=== PATIENT | male | born 1950 | race Caucasian/White ===

== ENCOUNTER → 2018-01-29 13:01 | Outpatient (CLI) | payer MEDICARE, OTHER, SELFPAY ==
[2018-01-29 14:53] LABS: Prostate Specific Ag Screen 0.6 ng/mL (0.0-4.0)
== END ==
PROVIDERS: PCP Family Medicine; Visit Provider Urology
DX: Z12.5 Encounter for screening for malignant neoplasm of prostate (principal); C61 Malignant neoplasm of prostate
CPT/HCPCS: 36415; G0103

== ENCOUNTER → 2019-01-07 12:31 | Outpatient (CLI) | payer MEDICARE, OTHER, SELFPAY ==
--- NOTE | 2019-01-07 | CT_ITS ---
CT abdomen w con INDICATION: Left upper quadrant pain . ORDERING PHYSICIAN: Heaven Cisneros PATIENT AGE: 68 years COMPARISON: No relevant previous studies. . TECHNIQUE: [address] abdomen only scanning performed down just below the umbilicus to the uppermost pelvis. Axial images obtained with sagittal & coronal reformats. All CT scans at the facility use one or more dose reduction, viz: automated exposure control, ma/kV adjustment per patient size (including targeted exams where dose is matched to indication, i.e. head), or iterative reconstruction technique. FINDINGS: Lung bases. Elevation left hemidiaphragm with linear scarring and atelectasis at left base Atelectasis & scarring most evident towards the left base more so than right. Heart. Coronary stents LAD likely circumflex with coronary artery calcification in the vessels. The heart is normal in size. Small left atrium On axial slice 3 & sagittal 59 there is a nearly 5 mm nodular density noted at medial left lung base. This is a nonspecific nodular density although I would note that it is fairly dense for size and could be early granuloma given such. There is some minimal pleural-parenchymal scarring Abdomen only imaged. Pelvis not included./ No prominent acute findings in the abdomen Liver. No significant focal lesion Spleen unremarkable. Pancreas satisfactory. Adrenals unremarkable. tract Kidneys no urinary tract obstruction or calculi. Mild stranding about both kidneys likely reflecting minor chronic change. Right kidney.. 2.1 cm benign-appearing renal cyst mid right kidney. I would note that the right ureter is slightly more generous than the left down to the right.. Right ureter normal caliber. Distal ureters are not visualized. Lower pelvis not included. GI TRACT.. Appendix is included and appears normal. Small bowel normal caliber with few scattered air-fluid levels not felt to be of significance.... Large bowel Moderate stool throughout the visualized portions of colon Colonic diverticulosis most evident at the descending colon and the included proximal most sigmoid colon. No good evidence of acute diverticulitis No Definitive findings at the left upper quadrant account for the patient's pain.. There is upper normal wall thickness at the splenic flexure of the colon which likely reflects merely lack of distention. No pericolic inflammation here.. On close inspection on axial image 86 coronal image 40, 41 noted area of ovoid area fat surrounded by a thin rim. Minor feature but conceivably may reflect focus of very minimal epiploic appendagitis here at the left lower abdomen.. Equivocal feature but noted, since could contribute to left-sided pain here at lower left mid abdomen.. This Located Approximately 6 cm above the left iliac crest This area measures 14 mm length X 8 mm.. Correlation required (history states left upper quadrant pain and thus this may not be of significance . Osseous no osseous lesions. Degenerative changes spine are manifest by prominent facet arthropathy L5/S1 and L4/5, most evident on left. ...... IMPRESSION. .... (CT abdomen only.) 1.... No prominent findings abdomen. . 2. Colonic diverticulosis, most evident throughout the left colon & included proximal sigmoid colon-. No discrete acute diverticulitis. Only Areas of upper normal wall thickness at descending colon 3. .... No discrete findings at left upper quadrant-would only note some borderline wall thickening at the splenic flexure of colon, which most likely reflects its contracted state. No definitive findings. 4. Would Only Question possible Small focus of possible very minor Epiploic Appendigitis left lower abdomen (6 cm above the left iliac crest) This fatty focus withi
[2019-01-07 13:02] LABS: Blood Urea Nitrogen 17 mg/dL (7-18); Creatinine,Serum 1.09 mg/dL (0.70-1.30); Estimated Glomerular Filt Rate 67 ml/min (>60); GFR (African American) 82 ML/MIN (>60)
== END ==
PROVIDERS: Visit Provider Nurse Practitioner Family
DX: R10.10 Upper abdominal pain, unspecified (principal)
CPT/HCPCS: 36415; 74160; 82565; 84520

== ENCOUNTER → 2019-02-04 11:37 | Outpatient (CLI) | payer MEDICARE, OTHER, SELFPAY ==
[2019-02-04 15:27] LABS: Prostate Specific Ag, Diagnost 0.85 ng/mL (0.0-4.0)
== END ==
PROVIDERS: Visit Provider Urology
DX: Z85.46 Personal history of malignant neoplasm of prostate (principal)
CPT/HCPCS: 36415; 84153

== ENCOUNTER → 2019-06-30 12:57 | Outpatient (CLI) | payer MEDICARE, OTHER, SELFPAY ==
--- NOTE | 2019-06-30 | US_ITS ---
US Arterial Lower Ext Rest History: Hypertension, hyperlipidemia, bilateral foot numbness ORDERING PHYSICIAN: Balaji Perales MD PATIENT AGE: 68 years TECHNIQUE: Segmental pressures obtained of both right and left leg. These are compared to brachial blood pressure to yield index at each level sampled including summary SAGAR. The data sheets from the procedure are available in PACS FINDINGS Rest study only performed today No prior studies available for comparison. Blood pressures reported are in millimeters mercury. RIGHT LEG SAGAR = 1.2. RIGHT LEG TBI=0.9 Brachial BP: 135 Thigh BP: 143 Calf BP: 156 Ankle PT: 160 Ankle DP : 163 Digit =124 LEFT LEG SAGAR = 1.1 LEFT LEG TBI= 0.9 Brachial BPD: 137 Thigh BP: 141 Calf BP: 160 Ankle PT:156 Ankle DP: 148 Digit = 125 Pulses and waveforms: Normal IMPRESSION: The ABIs as reported above are within normal limits. Waveforms and pulses are also unremarkable.
== END ==
PROVIDERS: PCP Family Medicine; Visit Provider Family Medicine
DX: R20.2 Paresthesia of skin (principal); I73.9 Peripheral vascular disease, unspecified; I25.10 Atherosclerotic heart disease of native coronary artery without angina pectoris
CPT/HCPCS: 93923; 93924

== ENCOUNTER → 2019-10-20 10:56 | Outpatient (POV) | payer MEDICARE, OTHER, SELFPAY | PROVIDERS: Visit Provider Specialist | DX: M79.662 Pain in left lower leg (principal); M79.661 Pain in right lower leg; M79.672 Pain in left foot; M79.671 Pain in right foot; R20.2 Paresthesia of skin | CPT/HCPCS: 95886; 95909 ==

== ENCOUNTER → 2019-11-03 08:30 | Outpatient (CLI) | payer MEDICARE, OTHER, SELFPAY ==
--- NOTE | 2019-11-03 08:41 | XR_ITS ---
PROCEDURE: XR FOOT WT BEARING LT 3V CLINICAL INDICATION: foot pain Numbness and foot pain COMPARISON: No exams were available for comparison FINDINGS: No fracture or dislocation. No lytic or blastic change. There is normal mineralization. There are minimal hypertrophic changes of the anterior distal tibia. Minimal osteoarthritic change noted at 1st MTP joint. Other findings:None. IMPRESSION: Minimal degenerative changes at the 1st MTP joint in the distal tibia anteriorly Dictated by: Yfn Martines MD 11/03/2019 13:10 Electronically signed by Yfn Martines MD in [facility] 11/03/2019 13:10
== END ==
PROVIDERS: PCP Family Medicine; Visit Provider Podiatrist
DX: M79.672 Pain in left foot (principal); M79.671 Pain in right foot
CPT/HCPCS: 73630

== ENCOUNTER → 2020-04-21 11:16 | Outpatient (CLI) | payer MEDICARE, OTHER, SELFPAY ==
--- NOTE | 2020-04-21 11:24 | XR_ITS ---
PROCEDURE: XR HIP LT 2-3V W/PELVIS CLINICAL INDICATION: LT HIP PAIN,LOW BACK PAIN COMPARISON: ABDW CT abdomen w con from 01/07/2019 FINDINGS: Prostate seed implants are present. There is mild sclerosis of the left SI joint inferiorly. There is mild osteoarthritic change of the left hip. A 12 mm lucent lesion is noted in the right femoral head. Mild osteoarthritic changes are present of the right hip IMPRESSION: Osteoarthritis of both hips. Lucent lesion is present in the right femoral head at [address] or MRI further evaluation. Dictated by: Yfn Martines MD 04/21/2020 15:20 Electronically signed by Yfn Martines MD in [facility] 04/21/2020 15:20
--- NOTE | 2020-04-21 11:24 | XR_ITS ---
PROCEDURE: XR LUMBAR SPINE MIN 4V CLINICAL INDICATION: Low back pain COMPARISON: No exams were available for comparison FINDINGS: There is normal alignment. No fracture or dislocation is evident. Mild endplate hypertrophic changes are present at every level with slight decrease in the disc space at T12-L1 L1-L2 L2-L3 and L3-L4. Mild degenerative change of the the left SI joint. IMPRESSION: Degenerative changes, no acute finding Dictated by: Yfn Martines MD 04/21/2020 15:14 Electronically signed by Yfn Martines MD in [facility] 04/21/2020 15:14
== END ==
PROVIDERS: PCP Family Medicine; Visit Provider Nurse Practitioner Family
DX: M54.5 Low back pain (principal); M25.552 Pain in left hip
CPT/HCPCS: 72110; 73502

== ENCOUNTER → 2020-05-10 13:07 | Outpatient (CLI) | payer MEDICARE, OTHER, SELFPAY ==
--- NOTE | 2020-05-10 13:18 | CT_ITS ---
PROCEDURE: CT HIP RT WO CON CLINICAL HISTORY: ABN X-RAY Lesion of the right femoral head COMPARISON: ABDW CT abdomen w con from 01/07/2019 XR HIP LT 2-3V W/PELVIS from 04/21/2020 TECHNIQUE: Axial images obtained with sagittal and coronal reformats. All CT scans at the facility use one or more dose reduction, viz: automated exposure control, ma/kV adjustment per patient size (including targeted exams where dose is matched to indication, i.e. head), or iterative reconstruction technique. FINDINGS: There are mild osteoarthritic changes of the right hip with decrease in the joint space and osteophyte formation. Subchondral cystic changes are present involving the acetabular roof. There is a well-circumscribed lucent lesion involving the femoral head which measures 19 x 10 mm. This has sclerotic margins. Internally and superiorly is a well circumscribed calcific density. This may be related to an osteochondral defect with an osteochondral fragment. The appearance is not typical for avascular necrosis. Along the lateral aspect of the femoral head with the junction with the femoral neck there is a small area of indentation which could represent a CAM deformity which may be seen with femoral acetabular impingement. There is some mild over coverage of the femoral head posteriorly by the acetabulum. No fracture or dislocation. There has been prior inguinal hernia repair with hyperdense mesh at the hernia repair site.. IMPRESSION: 1. 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 Suggest follow-up to confirm stability. Consider orthopedic consult. 2. Osteoarthritis of the right hip with subarticular cystic changes of the acetabular roof 3. Possible small CAM deformity of the junction of the femoral head and neck which may be seen with femoral acetabular impingement Dictated by: Yfn Martines MD 05/11/2020 13:08 Electronically signed by Yfn Martines MD in [facility] 05/11/2020 13:08
== END ==
PROVIDERS: PCP Family Medicine; Visit Provider Family Medicine
DX: R93.89 Abnormal findings on diagnostic imaging of other specified body structures (principal)
CPT/HCPCS: 73700

== ENCOUNTER → 2020-05-26 15:11 | Outpatient (CLI) | payer MEDICARE, OTHER, SELFPAY ==
--- NOTE | 2020-05-26 15:16 | MR_ITS ---
PROCEDURE: MR LUMBAR SPINE WO CON CLINICAL INDICATION: LOW BACK PAIN Left-sided low back pain with left leg COMPARISON: XR LUMBAR SPINE MIN 4V from 04/21/2020 TECHNIQUE: Standard multiplanar multiecho sequences are performed without contrast. 3-D MIP and myelographic images are also rendered and reviewed FINDINGS: There is normal alignment. The spinal cord ends at the L1 level. L1-L2: Mild degenerative disc disease with a small broad-based right paracentral disc protrusion causing mild right lateral recess narrowing. There is a T1 and T2 area of decreased intensity along the inferior aspect of the L1 endplate and could be due to Schmorl's node. L2-L3: Minimal bulging disc with mild facet ligamentum hypertrophy. L3-L4: Mild bulging disc with mild facet ligamentum hypertrophy with mild bilateral foraminal narrowing. L4-5: Mild facet and ligamentum hypertrophy with mild bilateral lateral recess narrowing L5-S1: Mild concentric bulging disc with mild degenerative disc disease. Facet ligamentum hypertrophy with moderate bilateral foraminal narrowing slightly greater on the left compared to the right. No extruded herniated disc or canal stenosis. Incidental note made of a 2 cm right renal cyst IMPRESSION: Mild multilevel lumbar spondylosis with degenerative disc disease, bulging discs and facet ligamentum hypertrophy. Lateral recess and foraminal narrowing. Please see above for detailed description at each level. No extruded herniated disc or canal stenosis Dictated by: Ynf Martines MD 05/27/2020 13:57 Electronically signed by Yfn Martines MD in [facility] 05/27/2020 13:57
== END ==
PROVIDERS: PCP Family Medicine; Visit Provider Nurse Practitioner Family
DX: M54.5 Low back pain (principal)
CPT/HCPCS: 72148; 76376

== ENCOUNTER → 2020-06-11 10:08 | Outpatient (CLI) | payer MEDICARE, OTHER, SELFPAY ==
--- NOTE | 2020-06-11 10:15 | XR_ITS ---
PROCEDURE: XR SHOULDER LT MIN 2V CLINICAL INDICATION: PAIN IN L SHOULDER COMPARISON: No exams were available for comparison FINDINGS: The clavicle is intact. There is prominent spurring of the AC joint both superiorly and inferiorly. There is a small bone fragment sitting just between the superior aspects of the AC joint probably posttraumatic in etiology. The humeral head and glenoid appear intact. There are couple of small subchondral cysts within the humeral head. There are no soft tissue calcifications. There is no significant subacromial stenosis. IMPRESSION: Moderate degenerative and possibly posttraumatic changes of the AC joint, no acute fracture seen Dictated by: Dr. Nash Luis MD 06/11/2020 10:[address] Nash Luis MD in [facility] 06/11/2020 10:26
== END ==
PROVIDERS: PCP Nurse Practitioner Family; Visit Provider Nurse Practitioner Family
DX: M25.512 Pain in left shoulder (principal)
CPT/HCPCS: 73030

== ENCOUNTER → 2020-07-21 16:05 | Outpatient (CLI) | payer MEDICARE, OTHER, SELFPAY ==
--- NOTE | 2020-07-21 16:08 | MR_ITS ---
PROCEDURE: MR SHOULDER LT WO CON CLINICAL INDICATION: LEFT SHOULDER PAIN Shoulder pain, fall with injury and pain COMPARISON: DX XR SHOULDER LT MIN 2V from 06/11/2020 TECHNIQUE: Routine multiplanar multi echo sequences are performed without gadolinium enhancement. FINDINGS: Prominent hypertrophic changes are present at the acromioclavicular joint with resultant impingement upon the musculotendinous junction of the supraspinatus tendon with subacromial stenosis. There is a full-thickness tear involving the anterior aspect of the supraspinatus tendon. There is thinning of the infraspinatus tendon consistent with a partial tear. The subscapularis tendon is also thinned. The teres minor tendon is intact. There is superior elevation of the humeral head with osteoarthritic changes of the glenohumeral joint. There is a curvilinear area of decreased T1 and increased T2 signal in the humeral head consistent with osteonecrosis with an osteochondral defect. Sub chondral cystic changes are present involving the greater tuberosity. The bicipital tendon is in place. Motion artifact obscures fine detail of the labrum with no definite labral tear. There is a small shoulder joint effusion. IMPRESSION: 1. Prominent hypertrophic changes of the AC joint with impingement on the supraspinatus tendon with subacromial stenosis. 2. Full-thickness tear of the supraspinatus tendon with partial tear of the infraspinatus tendon. There is thinning of the subscapularis tendon which may also be related to partial tear. 3. 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
== END ==
PROVIDERS: PCP Nurse Practitioner Family; Visit Provider Family Medicine
DX: M25.512 Pain in left shoulder (principal)
CPT/HCPCS: 73221

== ENCOUNTER 2020-10-26 20:11 | Emergency (ER) | payer MEDICARE, OTHER, SELFPAY ==
[2020-10-26] VITALS (8 sets, daily range): BP systolic 149–210; BP diastolic 82–110; PULSE 71–95; RESP 16–19; TEMP 36.7–36.8; O2SAT 96–98; BMI 31.2
--- NOTE | 2020-10-26 20:32 | ECG_ITS ---
APPROVED REPORT Exam: Resting ECG HR:63 bpm ECG Measurements Heart Rate 63 AXES MN 134 P 71 QRSd 94 QRS 13 QT 380 T 36 QTc 388 Conclusion Normal sinus rhythm Normal ECG Electronically signed by : Balaji Goodwin, 10/27/2020 05:44:37
--- NOTE | 2020-10-26 20:32 | XR_ITS ---
PROCEDURE: XR CHEST 2V CLINICAL HISTORY: dizziness COMPARISON: No exams were available for comparison FINDINGS: The cardiomediastinal silhouette and pulmonary vascularity are within normal limits. There is patchy density in the left lung base which may be due to an area of atelectasis or infiltrate. Nodular opacities are present 1 in the left lower lung zone in 1 in the right lower lung zone and may be due to nipple shadows. Degenerative changes thoracic spine IMPRESSION: Left lower lobe atelectasis or infiltrate. Dictated by: Yfn Martines MD 10/27/2020 05:22 Yfn Martines MD in [facility] 10/27/2020 05:22
--- NOTE | 2020-10-26 20:32 | CT_ITS ---
PROCEDURE: CT HEAD/BRAIN WO CON CLINICAL INDICATION: dizziness Dizziness, hypotension COMPARISON: No exams were available for comparison TECHNIQUE: Axial images obtained. All CT scans at the facility use one or more dose reduction, viz: automated exposure control, ma/kV adjustment per patient size (including targeted exams where dose is matched to indication, i.e. head), or iterative reconstruction technique. FINDINGS: No midline shift, mass effect, intracranial hemorrhage, hydrocephalus, or extra-axial fluid collection is evident. The calvarium has an unremarkable appearance. No mastoid effusion. There is a 2 cm retention cyst in the left maxillary sinus posteriorly and there is mucosal thickening involving the ethmoid sinuses anteriorly with mucosal thickening of the frontal sinus centrally and on the left. IMPRESSION: 1. No acute intracranial findings. 2. Sinus disease Dictated by: Yfn Martines MD 10/27/2020 05:43 Yfn Martines MD in [facility] 10/27/2020 05:43
--- NOTE | 2020-10-26 20:37 | HMH.EDDIZZ ---
ED Disposition Clinical Impression: Internal carotid artery dissection, Hypertensive emergency, Obesity (BMI 30.0-34.9) Disposition: Xfer Short-Term Hosp Condition on Discharge: Critical Referrals: Balaji Perales MD [Primary Care Provider] - - Critical Care Critical Care Time: Yes Attestation: On 10/26/20, the high probability of a clinically significant, sudden or life threatening deterioration of the following system(s) required my full and direct attention, intervention and personal management. The time I documented below is in addition to time spent performing reported procedures but includes the following listed in this critical care notation. Total Critical Care Time: 60 Vital system(s) involved:: Circulatory Failure My critical care processes included: Assessment & monitoring of V/S, Initial and Re-exams, Data Review/Interpretation, Medication Orders and management, Documentation Medical Decision Making - Medical Records Medical records reviewed: Yes: I reviewed the patient's medical records. - Venu Inquiry Pt receiving controlled substance: No Vital Signs: 10/26/20 20:12 Temperature 98.2 F Temperature Source Oral Pulse Rate [Left Radial] 73 Respiratory Rate 16 Blood Pressure [Right Arm] 179/97 H Blood Pressure Mean [Right Arm] 124 Blood Pressure Source [Right Arm] Automatic Cuff Blood Pressure Position [Right Arm] Sitting 02 Sat by Pulse Oximetry 97 Oxygen Delivery Method Room Air - Lab Data Lab results reviewed: Yes: I reviewed the patient's lab results. Lab Results 10/26/20 20:30: WBC 11.6 H, RBC 4.45 L, Hgb 13.3 L, Hct 40.1 L, MCV 90.2, MCH 30.0, MCHC 33.2, RDW 13.9, Plt Count 240, MPV 8.3, Neut % (Auto) 78.4, Lymph % (Auto) 15.4, Floyd % (Auto) 4.7, Eos % (Auto) 1.3, Baso % (Auto) 0.3, Neut # (Auto) 9.1 H, Lymph # (Auto) 1.8, Floyd # (Auto) 0.6, Eos # (Auto) 0.2, Baso # (Auto) 0.0 10/26/20 20:30: Sodium 138, Potassium 4.3, Chloride 105, Carbon Dioxide 27, Anion Gap 10.3, BUN 23 H, Creatinine 0.90, Estimated Creat Clear 98, Estimated GFR 84, Est GFR ( Amer) 101, Glucose 111 H, Calcium 9.3, Total Bilirubin 0.3, AST 35, ALT 29, Alkaline Phosphatase 93, Troponin I < 0.01, Total Protein 7.4, Albumin 4.6, Globulin 2.8, Albumin/Globulin Ratio 1.6 10/26/20 20:30: ESR 13 Result diagrams: 10/26/20 20:30 10/26/20 20:30 Orders (Tests/Meds): ED MEDICATIONS Generic Name Dose Route Start Last Admin Trade Name Freq PRN Reason Stop Dose Admin Sodium Chloride 1,000 mls @ 999 mls/hr 10/26/20 21:00 10/26/20 21:12 Sod Chlor 0.9% 1000ml Bag IV 10/26/20 22:00 999 mls/hr .Q1H1M KAYLAH Administration Nicardipine HCl 25 mg/ Sodium 250 mls @ 50 mls/hr 10/26/20 22:30 Chloride IV 11/25/20 22:29 .Q5H KAYLAH Protocol ORDERS Category Date Time Status CT angio head Stat Cat Scan 10/26/20 20:[address] angio neck Stat Cat Scan 10/26/20 20:[address] head/brain wo con Stat Cat Scan 10/26/20 20:32 Stop Req XR chest 2V Stat Exams 10/26/20 20:32 Ordered Troponin I Q3H Lab 10/26/20 22:13 Received Troponin I Q3H Lab 10/27/20 02:45 Ordered UA [Urinalysis and Microscopic] Stat Lab 10/26/20 22:23 Ordered - Radiology Data #1 Image(s): Chest Image Reviewed: Yes I reviewed the patient's radiology image Preliminary Findings: Abnormal (sl wid mediastinum - pos positional ) - CT Data CT Scan: Head, Other (neck cta ) Time Received: 22:[address] Reviewed: Yes: I have viewed the radiologist's interpretation Preliminary Findings: Abnormal (lt int carotid dissection ) - ECG Data Tracing #1 Normal Sinus Rhythm: Yes Ischemic changes: non-specific ST-T wave changes - Physician Consults Physician Consulted: [facility] Reason -: Transfer to another facilty Medical Decision Narrative: acute lt int art dissection will need bp control and transferred to [facility] HPI - General Chief Complaint: Dizziness Stated Complaint: dIZZY, aLMOST PASSED OUT T
--- NOTE | 2020-10-26 20:45 | CT_ITS ---
Procedure: CT ANGIO NECK CLINICAL HISTORY: dizziness Dizziness COMPARISON: CT CT ANGIO HEAD from 10/26/2020 TECHNIQUE: IV Contrast: 100ml Isovue 370 Axial images obtained with sagittal and coronal reformats. All CT scans at the facility use one or more dose reduction, viz: automated exposure control, ma/kV adjustment per patient size (including targeted exams where dose is matched to indication, i.e. head), or iterative reconstruction technique. FINDINGS: CTA neck: The aortic arch has an unremarkable appearance. There is tortuosity the right subclavian artery. The right common carotid has an unremarkable appearance. Right internal carotid also appears unremarkable with mild tortuosity. The left common carotid is unremarkable. There is acute appearing dissection of the proximal and distal segments of the left internal carotid artery cervical portion series 12, images [id number] and series 12, images 511-535. This does not extend into the intracranial portion of the left internal carotid. The vertebral arteries have an unremarkable appearance. CTA brain: No aneurysm, AVM or major intracranial occlusive process. No evidence of dissection of the intracranial portion of the carotid arteries. There is prominence of the sternoclavicular joint soft tissues on both sides consistent with pannus formation. The thyroid gland is slightly prominent with a 9 mm hypodensity in the right lobe of the thyroid gland. IMPRESSION: 1. Acute appearing dissection of the proximal distal segments of the cervical portion of the left internal carotid artery 2. No significant stenotic lesions. No aneurysm or AVM apparent. Dictated by: Yfn Martines MD 10/27/2020 16:19 Yfn Martines MD in [place] 10/27/2020 16:19
[2020-10-26 20:49] LABS: Basophils % 0.3 % (0.1-2.0); Eosinophils # 0.2 K/mm3 (0.0-0.4); Eosinophils % 1.3 % (0.1-12.0); Hematocrit 40.1 % (42.0-52.0); Hemoglobin 13.3 g/dL (14.1-18.0); Lymphocytes # 1.8 K/mm3 (0.7-4.5); Lymphocytes % 15.4 % (10-50); Mean Corpuscular HGB Conc 33.2 g/dL (31.8-35.4); Mean Corpuscular Volume 90.2 fl (80-94); Mean Platelet Volume 8.3 fl (7.4-10.4); Monocytes # 0.6 K/mm3 (0.1-1.0); Monocytes % 4.7 % (1.7-9.3); Neutrophils # 9.1 K/mm3 (1.8-7.8); Neutrophils % 78.4 % (37.0-80.0); Platelet Count 240 K/mm3 (142-424); Red Blood Count 4.45 M/mm3 (4.60-6.20); Red Cell Distribution Width 13.9 % (11.5-17.5); White Blood Count 11.6 K/mm3 (4.8-10.8)
[2020-10-26 20:52] LABS: Chloride 105 mmol/L (98-107); Potassium 4.3 mmoL/L (3.5-5.1); Sodium 138 mmol/L (136-145)
[2020-10-26 20:55] LABS: Alanine Aminotransferase 29 U/L (12-78); Albumin Level 4.6 g/dl (3.5-5.0); Albumin/Globulin Ratio 1.6 (1.1-1.8); Alkaline Phosphatase 93 U/L (38-126); Anion Gap 10.3 mEq/L (5-15); Aspartate Amino Transferase 35 U/L (17-59); Bilirubin,Total 0.3 mg/dl (0.2-1.3); Blood Urea Nitrogen 23 mg/dl (9-20); Carbon Dioxide 27 mmol/L (22.0-30.0); Creatinine Clearance Estimated 98 mL/min (50-200); Estimated Glomerular Filt Rate 84 ml/min (>60); GFR (African American) 101 ML/MIN (>60); Globulin 2.8 g/dL (1.3-3.2); Total Protein,Serum 7.4 g/dl (6.3-8.2)
[2020-10-26 20:56] LABS: Calcium 9.3 mg/dl (8.4-10.2); Glucose 111 mg/dl (74-100)
[2020-10-26 21:11] LABS: Troponin I < 0.01 ng/ml (0.00-0.034)
[2020-10-26 21:38] LABS: Erythrocyte Sedimentation Rate 13 mm/hr (0-20)
--- NOTE | 2020-10-26 22:16 | PC.NURSE ---
speaking with [facility] at this time.
--- NOTE | 2020-10-26 22:25 | PC.NURSE ---
speaking with HARIS
--- NOTE | 2020-10-26 22:25 | PC.NURSE ---
calling [facility] for weather check
--- NOTE | 2020-10-26 22:26 | PC.NURSE ---
speaking with HARIS
--- NOTE | 2020-10-26 22:27 | PC.NURSE ---
pt accepted by Dr. Bedolla
[2020-10-26 22:32] LABS: Appearance,Urine CLEAR (Clear); Bilirubin,Urine Negative (Negative); Blood, Urine Negative (Negative); Color,Urine YELLOW (Yellow); Glucose,Urine (UA) Negative (Negative); Ketones,Urine Negative (Negative); Leukocyte Esterase,Urine Negative (Negative); Microscopic, Urine URINE MICROSCOPIC (MICROSCOPIC); Nitrate,Urine Negative (Negative); Protein,Urine Negative (Negative); Urobilinogen,Urine 0.2 EU/dl (0.2)
--- NOTE | 2020-10-26 22:36 | PC.NURSE ---
spoke with Bebo from pharmacy for Cardene Drip dosing. Per [facility] they want systolic at 120 max and HR no more than 80bpm
[2020-10-26 22:37] LABS: Bacteria,Urine Trace /lpf
--- NOTE | 2020-10-26 22:42 | PC.NURSE ---
[facility] lifted 26 minutes ETA
--- NOTE | 2020-10-26 22:44 | PC.NURSE ---
Cardine drip initiated at 5mg/hr at 2243. BP 168/97 HR 75
--- NOTE | 2020-10-26 22:55 | PC.NURSE ---
Cardine increased to 7.5mg/hr at this time
--- NOTE | 2020-10-26 23:02 | PC.NURSE ---
Cardene titrated to 10mg/hr at 2315
== END 2020-10-26 23:38 | disposition short-term general hospital (02) ==
PROVIDERS: Emergency Provider Emergency Medicine; PCP Family Medicine
DX: I77.71 Dissection of carotid artery (principal); I16.1 Hypertensive emergency; E66.9 Obesity, unspecified; Z68.31 Body mass index [BMI] 31.0-31.9, adult; E78.5 Hyperlipidemia, unspecified; Z87.891 Personal history of nicotine dependence; Z79.899 Other long term (current) drug therapy
CPT/HCPCS: 70450; 70496; 70498; 71046; 80053; 81001; 84484; 85025; 85651; 93005; 96365; 96367; 99284; Q9967

== ENCOUNTER 2021-04-07 19:50 | Emergency (ER) | payer MEDICARE, OTHER, SELFPAY ==
[2021-04-07 20:00] VITALS: BMI 32.5
--- NOTE | 2021-04-07 20:00 | XR_ITS ---
PROCEDURE INFORMATION: Exam: XR Thoracic Spine Exam date and time: 04/07/2021 8:00 PM Age: 70 years old Clinical indication: Injury or trauma; Blunt trauma (contusions or hematomas); Injury date: 04/07/2021; Injury details: Fell today and landed on left posterior ribs; Patient HX: Pain post fall TECHNIQUE: Imaging protocol: XR of the thoracic spine. Views: 2 views. COMPARISON: No relevant prior studies available. FINDINGS: Bones/joints: Multilevel disc height narrowing, endplate sclerosis and anterior bridging osteophyte formation. No acute fracture or malalignment. Soft tissues: Unremarkable. IMPRESSION: Mild multilevel degenerative changes but no acute fracture or malalignment.
--- NOTE | 2021-04-07 20:00 | XR_ITS ---
PROCEDURE INFORMATION: Exam: XR Left Ribs with PA Chest Exam date and time: 04/07/2021 8:00 PM Age: 70 years old Clinical indication: Injury or trauma; Fall; Rib area, left side; Blunt trauma; Injury date: 04/07/2021; Injury details: Fell today landed on left posterior ribs TECHNIQUE: Imaging protocol: XR Left ribs with PA chest. Views: 3 views COMPARISON: CR XR CHEST 2V 10/26/2020 9:29 PM FINDINGS: Lungs: In the left lung base there is scarring. Pleural spaces: Unremarkable. No pleural effusion. No pneumothorax. Heart/Mediastinum: Unremarkable. No cardiomegaly. Bones/joints: Unremarkable. IMPRESSION: No acute findings. No evidence for left-sided rib fracture.
--- NOTE | 2021-04-07 20:00 | XR_ITS ---
PROCEDURE INFORMATION: Exam: XR Lumbosacral Spine Exam date and time: 04/07/2021 8:00 PM Age: 70 years old Clinical indication: Injury or trauma; Fall; Blunt trauma (contusions or hematomas); Injury date: 04/07/2021; Injury details: Fell today and landed on left side and pain low back and mid left posterior ribs TECHNIQUE: Imaging protocol: XR of the lumbosacral spine. Views: 4 or 5 views. COMPARISON: MR LUMBAR SPINE WO CON 05/26/2020 3:29 PM FINDINGS: Bones/joints: At L5-S1 there is facet joint arthropathy. Intervertebral disc heights are relatively well preserved. No acute fracture or malalignment. Facet joint arthropathy at L5-S1. Soft tissues: Unremarkable. IMPRESSION: No acute fracture or malalignment.
[2021-04-07 20:05] VITALS: BP 146/92; PULSE 85; RESP 12; TEMP 37; O2SAT 94; BMI 31.2
--- NOTE | 2021-04-07 21:48 | HMH.EDUTC ---
[facility] [place] Disposition Clinical Impression: Rib pain on left side Fall Qualifiers: Encounter type: initial encounter Qualified Code(s): W19.XXXA - Unspecified fall, initial encounter Thoracic back pain Qualifiers: Chronicity: acute Back pain laterality: bilateral Qualified Code(s): M54.6 - Pain in thoracic spine Low back pain Qualifiers: Chronicity: acute Back pain laterality: unspecified Sciatica presence: without sciatica Qualified Code(s): M54.5 - Low back pain Disposition: Home, Self-Care Condition on Discharge: Good Additional Instructions: Go home and rest. It would be best if you rested tomorrow too. No heavy lifting. No twisting. Take the oral medications as directed. The muscle relaxer (cyclobenzaprine----flexeril) will make you drowsy, so don't drive or operate heavy machinery after taking it. Follow up with your regular doctor. GO TO THE ER FOR ANY WORSENING SYMPTOMS OR CONCERN, ESPECIALLY BOWEL OR BLADDER ISSUES, SADDLE AREA NUMBNESS, FEVER, ETC Prescriptions: Ibuprofen [Ibuprofen 600mg Tablet] 600 mg PO Q6HP PRN #30 tab PRN Reason: Mild Pain Transmission Status: Received by [facility] Cyclobenzaprine HCl [Cyclobenzaprine 10mg Tab*] 10 mg PO BIDP PRN #20 tab PRN Reason: Muscle Spasm Transmission Status: Received by [facility] Referrals: Balaji Perales MD [Primary Care Provider] - Time of Disposition: 21:54 Medical Decision Making - Medical Records Medical records reviewed: No: I reviewed the patient's medical records. - Venu Inquiry Pt receiving controlled substance: No Vital Signs: 04/07/21 20:05 04/07/21 21:50 Temperature 98.6 F 98.6 F Temperature Source Oral Pulse Rate 85 Pulse Rate [Right Brachial] 85 Respiratory Rate 12 12 Blood Pressure 146/92 H Blood Pressure [Right Arm] 146/92 H Blood Pressure Mean [Right Arm] 110 Blood Pressure Source [Right Arm] Automatic Cuff Blood Pressure Position [Right Arm] Sitting 02 Sat by Pulse Oximetry 94 L Oxygen Delivery Method Room Air - Radiology Data #1 Image(s): L-Spine Image Reviewed: Yes I reviewed the patient's radiology image, Yes I have reviewed radiologist's interpretation Preliminary Findings: No Fracture Seen #2 Image(s): T-Spine Image Reviewed: Yes I reviewed the patient's radiology image, Yes I have reviewed radiologist's interpretation Preliminary Findings: No Fracture Seen #3 Image(s): Chest Image Reviewed: Yes I reviewed the patient's radiology image, Yes I have reviewed radiologist's interpretation Preliminary Findings: No Fracture Seen [facility] [place] HPI - General Stated complaint: AO05/13@1200 fall pain in left ribs Time Seen by Provider: 04/07/21 21:48 Mode of Arrival: Ambulatory Source of Information: Patient Limitations: No Limitations Description of Symptoms (Recalled from Triage Doc. by RN): PATIENT STATES HE WAS STANDING ON A 5 GALLON BUCKET TODAY APPROX 1300 AND FELL OFF, HITTING HIS LEFT SIDE ON BUCKET. C/O PAIN TO LEFT SIDE AND LEFT MID-BACK HEENT Symptoms (Recalled from RN notes): No Resp Symptoms (Recalled from RN notes): No Skin Symptoms (Recalled from RN notes): No MS Symptoms (Recalled from RN notes): Yes Functional Status (Recalled from RN notes): wnl - History of Present Illness Provider Complaint: He states that he fell off of a 5 gallon bucket in his garage earlier this evening. He came down on the bucket and it hit him on his left ribs. He is having upper back and left rib pain. - Related Data Home Medications Medication Instructions Recorded Confirmed atorvastatin 10 mg tablet 10 mg PO DAILY tab 01/29/18 03/30/21 carvedilol 12.5 mg tablet 12.5 mg PO BID 01/29/18 03/30/21 clopidogrel 75 mg tablet 75 mg PO DAILY tab 01/29/18 03/30/21 ibuprofen 600 mg tablet 600 mg PO Q6H PRN tab 01/26/21 03/30/21 losartan 100 mg tablet 50 mg PO DAILY tab 01/26/21 03/30/21 tamsulosin 0.4 mg capsule mg PO 01/26/21 03/30/21 torsemide 5 mg tablet 5 mg P
[2021-04-07 21:50] VITALS: BP 146/92; PULSE 85; RESP 12; TEMP 37; O2SAT 94
== END 2021-04-07 21:55 | disposition home or self-care (01) ==
PROVIDERS: Emergency Provider Nurse Practitioner Family; PCP Family Medicine
DX: R07.81 Pleurodynia (principal); M54.5 Low back pain; W17.89XA Other fall from one level to another, initial encounter; Y92.015 Private garage of single-family (private) house as the place of occurrence of the external cause
CPT/HCPCS: G0463; 71101; 72070; 72110; 99202

== ENCOUNTER 2021-06-15 18:48 | Emergency (ER) | payer MEDICARE, OTHER, SELFPAY ==
[2021-06-15 19:03] VITALS: PULSE 88; RESP 18; TEMP 36.9; O2SAT 96; BMI 31.5
--- NOTE | 2021-06-15 19:14 | ECG_ITS ---
APPROVED REPORT Exam: Resting ECG HR:82 bpm ECG Measurements Heart Rate 82 AXES MD 140 P 5 QRSd 102 QRS -5 QT 370 T 48 QTc 432 Conclusion Normal sinus rhythm Normal ECG Electronically signed by : Balaji Goodwin, 06/16/2021 14:28:43
--- NOTE | 2021-06-15 19:17 | HMH.EDGENADL ---
ED Disposition Condition on Discharge: Good - Critical Care Critical Care Time: No <Yamil Conde - Last Filed: 06/15/21 20:20> <Ayan English - Last Filed: 06/15/21 21:05> Clinical Impression: Dizziness, Internal carotid artery dissection Disposition: Home, Self-Care Instructions: Dizziness, Nonvertigo Additional Instructions: call pcp for follow up Referrals: Balaji Perales MD [Primary Care Provider] - Attestation: On 06/15/21, the high probability of a clinically significant, sudden or life threatening deterioration of the following system(s) required my full and direct attention, intervention and personal management. The time I documented below is in addition to time spent performing reported procedures but includes the following listed in this critical care notation. Medical Decision Making - Medical Records Medical records reviewed: Yes: I reviewed the patient's medical records. Comment: Reviewed emergency department visit at this facility 10/26/2020, reviewed CTA of head and neck and CT head results. Reviewed portal records. Last neurology visit 02/16/2021, communication reviewed. Records confirm patient's history. 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 - Venu Inquiry Pt receiving controlled substance: No - Lab Data Result diagrams: 06/15/21 19:17 06/15/21 19:17 - Radiology Data #1 Image(s): Chest Image Reviewed: Yes I reviewed the patient's radiology image <Yamil Conde - Last Filed: 06/15/21 20:20> - Lab Data Lab results reviewed: Yes: I reviewed the patient's lab results. Result diagrams: 06/15/21 19:17 06/15/21 19:17 - CT Data CT Scan: Head, Other (cta head/neck) Time Received: 21:[address] Reviewed: Yes: I have viewed the radiologist's interpretation Preliminary Findings: Abnormal (unchanged it ica dussectuin) <Ayan English - Last Filed: 06/15/21 21:05> Vital Signs: 06/15/21 19:03 Temperature 98.4 F Temperature Source Oral Pulse Rate [Right] 88 Respiratory Rate 18 02 Sat by Pulse Oximetry 96 Oxygen Delivery Method Room Air - Lab Data Lab Results 06/15/21 19:17: WBC 9.2, RBC 4.44 L, Hgb 13.2 L, Hct 39.3 L, MCV 88.6, MCH 29.8, MCHC 33.7, RDW 14.9, Plt Count 246, MPV 7.9, Neut % (Auto) 66.8, Lymph % (Auto) 23.6, [place] % (Auto) 5.4, Eos % (Auto) 3.4, Baso % (Auto) 0.7, Neut # (Auto) 6.2, Lymph # (Auto) 2.2, [place] # (Auto) 0.5, Eos # (Auto) 0.3, Baso # (Auto) 0.1 06/15/21 19:17: Sodium 140, Potassium 4.2, Chloride 103, Carbon Dioxide 28, Anion Gap 13.2, BUN 19, Creatinine 1.00, Estimated Creat Clear 98, Estimated GFR 74, Est GFR ( Amer) 90, Glucose 96, Calcium 8.9, Total Bilirubin 0.5, AST 35, ALT 27, Alkaline Phosphatase 106, Troponin I < 0.01, Total Protein 7.1, Albumin 4.4, Globulin 2.7, Albumin/Globulin Ratio 1.6 06/15/21 19:17: Troponin I < 0.01 Orders (Tests/Meds): ED MEDICATIONS Discontinued Medications Generic Name Dose Route Start Last Admin Trade Name Freq PRN Reason Stop Dose Admin Iopamidol 100 ml 06/15/21 20:28 06/15/21 20:30 Iopamidol-370 (76%);100ml Bottle IV 06/15/21 20:29 100 ml ONCE ONE Administration Sodium Chloride 40 ml 06/15/21 20:28 06/15/21 20:30 0.9 % Sodium Chloride 50 Ml Vial IV 06/15/21 20:29 40 ml ONCE ONE Administration Sodium Chloride 10 ml 06/15/21 20:28 06/15/21 20:30 Sodium Chloride 0.9% 10ml Syr (Rad Only) IV 06/15/21 20:29 10 ml ONCE ONE Administration ORDERS Category Date Time Status Troponin I Q3H Lab 06/16/21 01:30 Ordered - Radiology Data #1 Scar left base, no acute process. (Yamil Conde) - ECG Data Tracing #1 EKG interpreted by Yamil Conde MD: Rhythm: sinus Rate: 82 [place]: normal Ectopy: none Conduction: normal ST Segment Changes: none T Wave Changes: none Q Waves: none No evidence of acute ischemia or injury Normal electrocardiogram (Yamil Conde) Medical D
--- NOTE | 2021-06-15 19:22 | XR_ITS ---
PROCEDURE INFORMATION: Exam: XR Chest Exam date and time: 06/15/2021 7:22 PM Age: 70 years old Clinical indication: Other: Dizzy, feeling like going to pass out; Patient HX: HX of cardiac stents TECHNIQUE: Imaging protocol: XR of the chest. Views: 2 views. COMPARISON: CR XR RIBS LT MIN 3V W CXR1V 04/07/2021 8:28 PM FINDINGS: Lungs: Streaky opacity at the left lung base which is stable. No lobar consolidation. Pleural spaces: Unremarkable. No pleural effusion. No pneumothorax. Heart/Mediastinum: Unremarkable. No cardiomegaly. Bones/joints: Degenerative changes of the shoulders. IMPRESSION: Streaky opacity at the left lung base which is stable and potentially secondary to atelectasis or scarring.
[2021-06-15 19:34] LABS: Basophils # 0.1 K/mm3 (0-0.2); Basophils % 0.7 % (0.1-2.0); Eosinophils # 0.3 K/mm3 (0.0-0.4); Eosinophils % 3.4 % (0.1-12.0); Hematocrit 39.3 % (42.0-52.0); Hemoglobin 13.2 g/dL (14.1-18.0); Lymphocytes # 2.2 K/mm3 (0.7-4.5); Lymphocytes % 23.6 % (10-50); Mean Corpuscular HGB Conc 33.7 g/dL (31.8-35.4); Mean Corpuscular Hemoglobin 29.8 pg (27.0-31.2); Mean Corpuscular Volume 88.6 fl (80-94); Mean Platelet Volume 7.9 fl (7.4-10.4); Monocytes # 0.5 K/mm3 (0.1-1.0); Monocytes % 5.4 % (1.7-9.3); Neutrophils # 6.2 K/mm3 (1.8-7.8); Neutrophils % 66.8 % (37.0-80.0); Platelet Count 246 K/mm3 (142-424); Red Blood Count 4.44 M/mm3 (4.60-6.20); Red Cell Distribution Width 14.9 % (11.5-17.5); White Blood Count 9.2 K/mm3 (4.8-10.8)
--- NOTE | 2021-06-15 19:36 | CT_ITS ---
PROCEDURE INFORMATION: Exam: CT Angiography Neck With Contrast Exam date and time: 06/15/2021 7:36 PM Age: 70 years old Clinical indication: Dizziness and giddiness; Additional info: Dizziness, h/o ica dissection, cerebellar stroke TECHNIQUE: Imaging protocol: Computed tomography angiography of the neck with contrast. 3D rendering (Not supervised by radiologist): MIP and/or 3D reconstructed images were created by the technologist. Radiation optimization: All CT scans at this facility use at least one of these dose optimization techniques: automated exposure control; mA and/or kV adjustment per patient size (includes targeted exams where dose is matched to clinical indication); or iterative reconstruction. Contrast material: ISOVUE 370; Contrast volume: 100 ml; Contrast route: INTRAVENOUS (IV); COMPARISON: CT ANGIO NECK 10/26/2020 9:07 PM FINDINGS: Right common carotid artery: No stenosis. No dissection or occlusion. Right internal carotid artery: No stenosis of the extracranial segment. No dissection or occlusion. Right external carotid artery: No occlusion or stenosis of the origin. Left common carotid artery: No stenosis. No dissection or occlusion. Left internal carotid artery: Thin filling defects involving the proximal left ICA just beyond the bifurcation and upper cervical left ICA just before the petrous segment, similar to prior examination. Left external carotid artery: No occlusion or stenosis of the origin. Right vertebral artery: No stenosis. No dissection or occlusion. Left vertebral artery: No stenosis. No dissection or occlusion. Soft tissues: Normal. No significant soft tissue swelling. Bones/joints: Degenerative changes. No acute fracture. IMPRESSION: Left ICA dissection similar to prior examination. REFERENCES: NASCET CRITERIA. The degree of internal carotid artery stenosis is based on NASCET criteria. Normal is no stenosis. Mild is less than 50% stenosis. Moderate is 50-69% stenosis. Severe is 70% to 99% stenosis. Total occlusion is no detectable patent lumen.
--- NOTE | 2021-06-15 19:36 | CT_ITS ---
PROCEDURE INFORMATION: Exam: CT Angiography Head With Contrast, Arteriography Exam date and time: 06/15/2021 7:36 PM Age: 70 years old Clinical indication: Dizziness and giddiness; Additional info: Dizziness, h/o ica dissection, cerebellar stroke TECHNIQUE: Imaging protocol: Computed tomography angiography of the head with contrast. Exam focused on the arteries. 3D rendering (Not supervised by radiologist): MIP and/or 3D reconstructed images were created by the technologist. Radiation optimization: All CT scans at this facility use at least one of these dose optimization techniques: automated exposure control; mA and/or kV adjustment per patient size (includes targeted exams where dose is matched to clinical indication); or iterative reconstruction. Contrast material: ISOVUE 370; Contrast volume: 100 ml; Contrast route: INTRAVENOUS (IV); COMPARISON: CT ANGIO HEAD 10/26/2020 9:07 PM FINDINGS: ANTERIOR CIRCULATION: Right internal carotid artery: Minimal calcified atherosclerosis involving the carotid siphon. No high-grade stenosis or aneurysm. Right middle cerebral artery: Unremarkable. No occlusion or significant stenosis. No aneurysm. Right anterior cerebral artery: Unremarkable. No occlusion or significant stenosis. No aneurysm. Left internal carotid artery: Short-segment dissection of the left internal carotid artery beginning approximately 7 mm beyond the bifurcation extending 2.2 cm proximally where there is artifact associated with dental fillings. Additional thin filling defect within the left internal carotid artery involving the upper cervical segment beginning just above C1 and extending nearly to the petrous segment. Minimal atherosclerosis involving the carotid siphon. No aneurysm. Left middle cerebral artery: Unremarkable. No occlusion or significant stenosis. No aneurysm. Left anterior cerebral artery: Unremarkable. No occlusion or significant stenosis. No aneurysm. POSTERIOR CIRCULATION: Right vertebral artery: Unremarkable. No occlusion or significant stenosis. No aneurysm. Left vertebral artery: Unremarkable. No occlusion or significant stenosis. No aneurysm. Basilar artery: Unremarkable. No occlusion or significant stenosis. No aneurysm. Right posterior cerebral artery: Unremarkable. No occlusion or significant stenosis. No aneurysm. Left posterior cerebral artery: Unremarkable. No occlusion or significant stenosis. No aneurysm. Brain: No acute intracranial hemorrhage. No significant white matter disease. No edema. Cerebral ventricles: No ventriculomegaly. Bones/joints: No acute fracture. Soft tissues: Unremarkable. IMPRESSION: Left internal carotid artery dissection similar to prior examination.
--- NOTE | 2021-06-15 19:38 | CT_ITS ---
PROCEDURE INFORMATION: Exam: CT Head Without Contrast Exam date and time: 06/15/2021 7:38 PM Age: 70 years old Clinical indication: Dizziness TECHNIQUE: Imaging protocol: Computed tomography of the head without contrast. Radiation optimization: All CT scans at this facility use at least one of these dose optimization techniques: automated exposure control; mA and/or kV adjustment per patient size (includes targeted exams where dose is matched to clinical indication); or iterative reconstruction. COMPARISON: CT HEAD/BRAIN WO CON 10/26/2020 9:01 PM FINDINGS: Brain: 15 x 24 mm CSF density lesion along the anterolateral right temporal lobe causing mild adjacent mass effect. Posterior fossa structures are not well evaluated. No large territorial infarction. No hemorrhage. Cerebral ventricles: No ventriculomegaly. Paranasal sinuses: Mucosal thickening of the paranasal sinuses. No air fluid level. Mastoid air cells: Visualized mastoid air cells are well aerated. Bones/joints: No acute fracture. Soft tissues: No significant soft tissue abnormality. IMPRESSION: 15 x 24 mm CSF density lesion along the anterolateral right temporal lobe which is stable from prior examination. Differential would include arachnoid cyst or potentially epidermoid. This could be further evaluated with MRI if it has not been previously characterized.
[2021-06-15 19:46] LABS: Alanine Aminotransferase 27 U/L (12-78); Albumin Level 4.4 g/dl (3.5-5.0); Albumin/Globulin Ratio 1.6 (1.1-1.8); Alkaline Phosphatase 106 U/L (38-126); Anion Gap 13.2 mEq/L (5-15); Aspartate Amino Transferase 35 U/L (17-59); Bilirubin,Total 0.5 mg/dl (0.2-1.3); Blood Urea Nitrogen 19 mg/dl (9-20); Calcium 8.9 mg/dl (8.4-10.2); Carbon Dioxide 28 mmol/L (22.0-30.0); Chloride 103 mmol/L (98-107); Creatinine Clearance Estimated 98 mL/min (50-200); Estimated Glomerular Filt Rate 74 ml/min (>60); GFR (African American) 90 ML/MIN (>60); Globulin 2.7 g/dL (1.3-3.2); Glucose 96 mg/dl (74-100); Potassium 4.2 mmoL/L (3.5-5.1); Sodium 140 mmol/L (136-145); Total Protein,Serum 7.1 g/dl (6.3-8.2)
[2021-06-15 19:59] LABS: Troponin I < 0.01 ng/ml (0.00-0.034)
[2021-06-15 21:07] VITALS: BP 151/86; PULSE 77; RESP 18; TEMP 36.9; O2SAT 96
== END 2021-06-15 21:09 | disposition home or self-care (01) ==
PROVIDERS: Emergency Provider Emergency Medicine; PCP Family Medicine
DX: I77.71 Dissection of carotid artery (principal); I25.10 Atherosclerotic heart disease of native coronary artery without angina pectoris; I10 Essential (primary) hypertension; K21.9 Gastro-esophageal reflux disease without esophagitis; E78.5 Hyperlipidemia, unspecified; Z87.891 Personal history of nicotine dependence; Z79.899 Other long term (current) drug therapy
CPT/HCPCS: 70450; 70496; 70498; 71046; 80053; 84484; 85025; 93005; 96365; 99282; Q9967

== ENCOUNTER 2022-01-08 18:27 | Emergency (ER) | payer MEDICARE, SELFPAY ==
[2022-01-08 18:32] VITALS: BP 0/0; PULSE 0; RESP 0; TEMP -17.7; TEMP 0
== END 2022-01-08 18:33 | disposition left against medical advice (07) ==
LOC: UTC 18:29
PROVIDERS: Emergency Provider Nurse Practitioner Family; PCP Family Medicine
DX: Z53.21 Procedure and treatment not carried out due to patient leaving prior to being seen by health care provider (principal)

== ENCOUNTER → 2022-01-09 11:08 | Outpatient (CLI) | payer MEDICARE, SELFPAY ==
[2022-01-10 08:35] LABS: Covid-19 Nasal PCR Sendout Lex POSITIVE
== END ==
PROVIDERS: PCP Family Medicine; Visit Provider Nurse Practitioner
DX: U07.1 COVID-19 (principal)
CPT/HCPCS: C9803; U0004; U0005

== ENCOUNTER 2022-01-11 13:17 | Emergency (ER) | payer MEDICARE, SELFPAY ==
--- NOTE | 2022-01-11 13:36 | XR_ITS ---
FINAL REPORT CLINICAL HISTORY: pain, POSITIVE COVID TEST 2 DAYS AGO COMPARISON: June 15, 2021 FINDINGS: Two views of the chest were obtained. The heart size and pulmonary vascularity are within normal limits. The mediastinum is normal. There are persistent left base opacities which may represent scarring. There is no pneumothorax. The bony thorax is intact. IMPRESSION: Persistent left base opacities, may represent scarring. Reviewed, Interpreted and Dictated by Magen Collazo III, MD Transcribed by Shanon Haro Authenticated by Magen Collazo III, MD on 01/11/2022 03:01:56 PM [facility]
[2022-01-11 13:44] VITALS: BP 129/86; PULSE 95; RESP 18; TEMP 37.3; O2SAT 97; BMI 17.2
--- NOTE | 2022-01-11 13:53 | HMH.EDUTC ---
[facility] [place] Clinical Impression: COVID-19 Disposition: Home, Self-Care Condition on Discharge: Good Instructions: Preventing the Spread of Coronavirus Discharge Instructions, DI for COVID-19 (Suspected or Confirmed ) Additional Instructions: Drink plenty of fluids. Take tylenol or ibuprofen for pain or fever. Take the medications as directed. Follow up with your regular doctor. GO TO THE ER FOR ANY WORSENING SYMPTOMS The albuterol inhaler may help with your chest tightness and cough. Don't start the oral steroids until tomorrow, since you had the shot here today. Prescriptions: Albuterol Sulfate [Albuterol Sulfate Hfa] 2 puffs IH Q6HP PRN 30 Days #1 each PRN Reason: Shortness Of Breath Transmission Status: Pending to [facility] Benzonatate [Benzonatate 100mg cap] 100 mg PO TIDP PRN #30 cap PRN Reason: Cough Transmission Status: Pending to [facility] methylPREDNISolone [Medrol] 4 mg PO DIRECTED 6 Days #21 packet Transmission Status: Pending to [facility] Azithromycin [Z-Pato 250mg Tab*] 250 mg PO UD DOSE PK #6 tab Transmission Status: Pending to [facility] Referrals: Balaji Perales MD [Primary Care Provider] - Time of Disposition: 14:41 Medical Decision Making - Medical Records Medical records reviewed: No: I reviewed the patient's medical records. - Venu Inquiry Pt receiving controlled substance: No Vital Signs: 01/11/22 13:44 Temperature 99.2 F Temperature Source Oral Pulse Rate [Left] 95 H Respiratory Rate 18 Blood Pressure [Right Arm] 129/86 Blood Pressure Mean [Right Arm] 100 02 Sat by Pulse Oximetry 97 - Lab Data Lab results reviewed: Yes: I reviewed the patient's lab results. Orders (Tests/Meds): ORDERS Category Date Time Status Chest XR 2 view (NOT portable) [XR chest 2V] Stat Exams 01/11/22 13:36 Taken - Radiology Data #1 Image(s): Chest Image Reviewed: Yes I reviewed the patient's radiology image, Yes I have reviewed radiologist's interpretation [facility] [place] - General Stated complaint: covid pos 01/02, upper back pain Time Seen by Provider: 01/11/22 13:53 Mode of Arrival: Ambulatory Source of Information: Patient Limitations: No Limitations Description of Symptoms (Recalled from Triage Doc. by RN): PT STATES HE TESTED POSITIVE FOR COVID ON 01.09. PT STATES HE IS HAING RIB AND MIDDLE BACK PAIN. PT WANTS A CHEST XRAY. HEENT Symptoms (Recalled from RN notes): No Resp Symptoms (Recalled from RN notes): Yes Skin Symptoms (Recalled from RN notes): No MS Symptoms (Recalled from RN notes): No Functional Status (Recalled from RN notes): WNL - History of Present Illness Provider Complaint: He tested positive for covid-19 on 01/09. He states that he has been having worsening chest congestion and cough. He has been fully vaccinated against covid-19. He denies fever at home. He is also having body aches and muscle aches. - Related Data Home Medications Medication Instructions Recorded Confirmed carvedilol 12.5 mg tablet 12.5 mg PO BID 01/29/18 11/02/21 clopidogrel 75 mg tablet 75 mg PO DAILY tab 01/29/18 11/02/21 ibuprofen 600 mg tablet 600 mg PO Q6H PRN tab 01/26/21 11/02/21 losartan 100 mg tablet 50 mg PO DAILY tab 01/26/21 11/02/21 torsemide 5 mg tablet 5 mg PO PRN tab 01/26/21 11/02/21 atorvastatin 10 mg tablet 80 mg PO DAILY tab 11/02/21 11/02/21 tamsulosin 0.4 mg capsule 0.4 mg PO HS cap 11/02/21 11/02/21 Previous Rx's Medication Instructions Recorded diclofenac sodium 1 % topical gel 4 g TOPICAL QID PRN #30 g 11/03/19 Cyclobenzaprine HCl 10 mg PO BIDP PRN #20 tab 04/07/21 [Cyclobenzaprine 10mg Tab*] Albuterol Sulfate [Albuterol 2 puffs IH Q6HP PRN 30 Days #1 each 01/11/22 Sulfate Hfa] Azithromycin [Z-Pato 250mg Tab*] 250 mg PO UD DOSE PK #6 tab 01/11/22 Benzonatate [Benzonatate 100mg 100 mg PO TIDP PRN #30 cap 01/11/22 cap] methylPREDNISolone [Medrol] 4 mg PO DIRECTED 6 Days #
[2022-01-11 15:00] VITALS: BP 129/86; PULSE 95; RESP 18; TEMP 37.3
== END 2022-01-11 15:00 | disposition home or self-care (01) ==
PROVIDERS: Emergency Provider Nurse Practitioner Family; PCP Family Medicine
DX: U07.1 COVID-19 (principal); M54.50 Low back pain, unspecified; E10.9 Type 1 diabetes mellitus without complications; I25.10 Atherosclerotic heart disease of native coronary artery without angina pectoris; K21.9 Gastro-esophageal reflux disease without esophagitis; I10 Essential (primary) hypertension; E78.5 Hyperlipidemia, unspecified
CPT/HCPCS: G0463; 71046; 99202; 99212; 99213

== ENCOUNTER → 2022-02-07 10:25 | Outpatient (CLI) | payer MEDICARE, SELFPAY ==
--- NOTE | 2022-02-07 10:31 | XR_ITS ---
FINAL REPORT CLINICAL HISTORY: SOB COMPARISON: January 11, 2022 FINDINGS: Two views of the chest were obtained. The heart size and pulmonary vascularity are within normal limits. The mediastinum is normal. There is persistent, mild left base atelectasis or scarring. There is no pneumothorax. There are mild and moderate degenerative changes of the thoracic spine. IMPRESSION: Persistent, mild left base atelectasis or scarring. Reviewed, Interpreted and Dictated by Magen Collazo III, MD Transcribed by Paul Leary Authenticated by Magen Collazo III, MD on 02/07/2022 01:03:15 PM [facility]
== END ==
PROVIDERS: PCP Family Medicine; Visit Provider Family Medicine
DX: R06.02 Shortness of breath (principal)
CPT/HCPCS: 71046

== ENCOUNTER → 2022-09-25 09:00 | Outpatient (CLI) | payer MEDICARE, SELFPAY | PROVIDERS: PCP Family Medicine; Visit Provider Nurse Practitioner Family | DX: E66.9 Obesity, unspecified (principal); G47.33 Obstructive sleep apnea (adult) (pediatric); G93.40 Encephalopathy, unspecified; I10 Essential (primary) hypertension; I25.10 Atherosclerotic heart disease of native coronary artery without angina pectoris; R41.9 Unspecified symptoms and signs involving cognitive functions and awareness; R42 Dizziness and giddiness; Z86.73 Personal history of transient ischemic attack (TIA), and cerebral infarction without residual deficits; Z86.79 Personal history of other diseases of the circulatory system; Z87.891 Personal history of nicotine dependence; Z99.89 Dependence on other enabling machines and devices; Z68.33 Body mass index [BMI] 33.0-33.9, adult | CPT/HCPCS: 93270; 94762 ==

== ENCOUNTER → 2022-09-28 08:37 | Outpatient (CLI) | payer MEDICARE, SELFPAY ==
[2022-09-28 09:33] LABS: Basophils # 0.1 K/mm3 (0-0.2); Basophils % 1.3 % (0.1-2.0); Eosinophils # 0.3 K/mm3 (0.0-0.4); Eosinophils % 4.6 % (0.1-12.0); Hematocrit 44.6 % (42.0-52.0); Hemoglobin 14.3 g/dL (14.1-18.0); Lymphocytes # 1.6 K/mm3 (0.7-4.5); Lymphocytes % 27.9 % (10-50); Mean Corpuscular HGB Conc 32.1 g/dL (31.8-35.4); Mean Corpuscular Hemoglobin 29.7 pg (27.0-31.2); Mean Corpuscular Volume 92.4 fl (80-94); Mean Platelet Volume 8.3 fl (7.4-10.4); Monocytes # 0.4 K/mm3 (0.1-1.0); Monocytes % 6.4 % (1.7-9.3); Neutrophils # 3.3 K/mm3 (1.8-7.8); Neutrophils % 59.7 % (37.0-80.0); Platelet Count 269 K/mm3 (142-424); Red Blood Count 4.83 M/mm3 (4.60-6.20); Red Cell Distribution Width 14.2 % (11.5-17.5); White Blood Count 5.6 K/mm3 (4.8-10.8)
[2022-09-28 10:12] LABS: Alanine Aminotransferase 27 U/L (12-78); Albumin Level 4.4 g/dl (3.5-5.0); Albumin/Globulin Ratio 1.8 (1.1-1.8); Alkaline Phosphatase 113 U/L (38-126); Anion Gap 15.6 mEq/L (5-15); Aspartate Amino Transferase 34 U/L (17-59); Bilirubin,Total 0.3 mg/dl (0.2-1.3); Blood Urea Nitrogen 15 mg/dl (9-20); Calcium 9.8 mg/dl (8.4-10.2); Carbon Dioxide 30 mmol/L (22.0-30.0); Chloride 101 mmol/L (98-107); Estimated Glomerular Filt Rate 74 ml/min (>60); GFR (African American) 89 ML/MIN (>60); Globulin 2.5 g/dL (1.3-3.2); Glucose 110 mg/dl (74-100); Potassium 4.6 mmoL/L (3.5-5.1); Sodium 142 mmol/L (136-145); Total Protein,Serum 6.9 g/dl (6.3-8.2)
[2022-09-28 10:41] LABS: Thyroid Stimulating Hormone 1.87 uIU/mL (0.465-4.68)
[2022-09-28 11:16] LABS: Vitamin B12 468 pg/mL (239-931)
[2022-09-29 11:20] LABS: Rapid Plasma Reagin Ab Titer Non Reactive (NonRea<1:1)
[2022-10-28 22:26] LABS: Antinuclear Antibodies (ANA) Negative
== END ==
PROVIDERS: Nurse Practitioner Family; PCP Family Medicine; Visit Provider Specialist
DX: E66.9 Obesity, unspecified (principal); G47.33 Obstructive sleep apnea (adult) (pediatric); G93.40 Encephalopathy, unspecified; I10 Essential (primary) hypertension; I25.10 Atherosclerotic heart disease of native coronary artery without angina pectoris; R41.9 Unspecified symptoms and signs involving cognitive functions and awareness; Z86.73 Personal history of transient ischemic attack (TIA), and cerebral infarction without residual deficits; Z86.79 Personal history of other diseases of the circulatory system; Z87.891 Personal history of nicotine dependence; Z99.89 Dependence on other enabling machines and devices; R41.3 Other amnesia; Z01.84 Encounter for antibody response examination
CPT/HCPCS: 36415; 80053; 82607; 82746; 84443; 85025; 86038; 86592

== ENCOUNTER → 2022-10-03 08:28 | Outpatient (CLI) | payer MEDICARE, SELFPAY ==
--- NOTE | 2022-10-03 08:29 | MR_ITS ---
FINAL REPORT CLINICAL HISTORY: encephalopathy with history of prostate CA, CVA. HISTORY PROSTATE CANCER. FORGETFULNESS. FAMILY HISTORY DEMETIA. DIZZINESS. 20ML PROHANCE. FINDINGS: Multiplanar MR imaging of the brain was performed without and with contrast. There is no evidence of intracranial hemorrhage or mass. No abnormal extra-axial fluid collection is seen. The ventricular size is within normal limits. There is no evidence of shift of the midline structures. The posterior fossa and brainstem have an unremarkable appearance. No area of abnormal restricted diffusion is identified. No abnormal contrast enhancement is seen. Normal major vessel vascular flow voids are noted. There is lobular mucoperiosteal thickening in the left maxillary sinus. There is mucoperiosteal thickening in the left ethmoid air cells and left frontal sinus. IMPRESSION: Chronic left maxillary and ethmoid sinusitis. No acute intracranial abnormality identified. Reviewed, Interpreted and Dictated by Robert Quintana MD Transcribed by Paul Leary Authenticated and [facility]
== END ==
PROVIDERS: PCP Family Medicine; Visit Provider Nurse Practitioner Family
DX: E66.9 Obesity, unspecified (principal); G47.33 Obstructive sleep apnea (adult) (pediatric); G93.40 Encephalopathy, unspecified; I10 Essential (primary) hypertension; I25.10 Atherosclerotic heart disease of native coronary artery without angina pectoris; R41.9 Unspecified symptoms and signs involving cognitive functions and awareness; Z86.73 Personal history of transient ischemic attack (TIA), and cerebral infarction without residual deficits; Z86.79 Personal history of other diseases of the circulatory system; Z87.891 Personal history of nicotine dependence; Z99.89 Dependence on other enabling machines and devices
CPT/HCPCS: 70553; A9576

== ENCOUNTER → 2022-11-13 10:48 | Outpatient (CLI) | payer MEDICARE, SELFPAY ==
--- NOTE | 2022-11-13 10:54 | CA_ITS ---
APPROVED REPORT EXAM: Comprehensive 2D, Doppler, and color-flow Echocardiogram Outplacement Consultant: Ana Laura Hager RVT Ht: 5 ft 10 in Wt: 235lbs BSA: 2.24 BP: 146/80 mmHg Indications: CVA,HTN,CAD,SMOKER,OBESITY 2D Dimensions LVOT 2.29 cm (M/F) 1.5-2.5 M-Mode Dimensions RVDd 3.48 cm (0.9-2.6) LA Diam 4.06 cm (1.9-4.0) LVDd 5.84 cm (3.5-5.7) Ao Diam 3.83 cm (2.0-3.7) LVDs 4.06 cm (3.5-5.7) IVSd 0.62 cm (0.6-1.1) PWd 0.85 cm (0.6-1.1) EF (Teich) 57.20% FS 30.50% EDV (Teich) 169.20 mL TAPSE 1.88 (<1.7) ESV (Teich) 72.50 mL LV Diastology E Decel Time 217.00 (160-240 msec) E/A Ratio 0.7 MED E' 6.00 (< 7 cm/sec) E'/MED E' Ratio 9.98 (>14) LAT E' 5.80 (<10 cm/sec) E/LAT E' Ratio 10.33 (>14) Aortic Valve AI PHT 823.00 ms AO Peak GR. 4.40 mmHg Mitral Valve MV E Max Josh. 60.00 (40-130 cm/s) MV A Velocity 83.00 (40-130 cm/s) E/A Ratio 0.72 MV Decel. Time 217.00 (160-240 ms) MV PHT 63.00 ms Pulmonary Valve PV Peak Velocity 68.00 (50-150 cm/s) Left Ventricle Left atrium is mildly enlarged, left ventricle is normal size mild concentric left ventricular hypertrophy, estimated ejection fraction 55% with no regional wall motion abnormality, grade 1 diastolic dysfunction seen without tissue Doppler evidence of raise left atrial pressure. Right Ventricle Right atrium and right ventricle are mildly enlarged with normal contractility. Aortic Valve Aortic valve is minimally thickened and calcified without aortic stenosis, there is mild aortic insufficiency. Mitral Valve Mitral valve is grossly normal, there is mild mitral regurgitation. Tricuspid Valve Tricuspid valve grossly normal, there is mild tricuspid regurgitation, tricuspid regurgitation jet velocity is inadequate for calculation of the right ventricular systolic pressure. Pulmonic Valve Pulmonic valve is poorly visualized. Great Vessels Aortic root is normal size. Inferior vena cava is poorly visualized. Pericardium No significant pericardial effusion noted. Conclusion 1. Mild biatrial enlargement, normal left ventricular size, mild concentric left ventricular hypertrophy, estimated ejection fraction 55% with no regional wall motion abnormality, grade 1 diastolic dysfunction seen without tissue Doppler evidence of raise left atrial pressure. 2. Mildly enlarged right ventricle with normal contractility. 3. Mild aortic, mitral and tricuspid regurgitation. 4. No significant pericardial effusion noted. 5. Inferior vena cava is poorly visualized. Electronically signed by : Lucas Tapia MD 11/13/2022 21:47:51
== END ==
PROVIDERS: PCP Family Medicine; Visit Provider Nurse Practitioner Family
DX: E66.9 Obesity, unspecified (principal); G47.33 Obstructive sleep apnea (adult) (pediatric); G93.40 Encephalopathy, unspecified; I10 Essential (primary) hypertension; I25.10 Atherosclerotic heart disease of native coronary artery without angina pectoris; R41.9 Unspecified symptoms and signs involving cognitive functions and awareness; Z86.73 Personal history of transient ischemic attack (TIA), and cerebral infarction without residual deficits; Z86.79 Personal history of other diseases of the circulatory system; Z87.891 Personal history of nicotine dependence; Z99.89 Dependence on other enabling machines and devices
CPT/HCPCS: 93306

== ENCOUNTER → 2022-11-16 13:08 | Outpatient (CLI) | payer MEDICARE, SELFPAY ==
--- NOTE | 2022-11-16 13:18 | CT_ITS ---
FINAL REPORT TECHNIQUE: Thin section axial CT with IV contrast supplemented with multiplanar reconstruction under CT angiogram protocol. 3-D reconstructions were performed. This study was performed with techniques to keep radiation doses as low as reasonably achievable (ALARA). Individualized dose reduction techniques using automated exposure control or adjustment of mA and/or kV according to the patient''s size were employed. CLINICAL HISTORY: hx ICA disection FINDINGS: The distal vertebral, basilar and distal internal carotid arteries have an unremarkable appearance. No aneurysm is seen. Major intracranial vessels are patent without significant stenosis. IMPRESSION: No evidence of significant stenosis. Reviewed, Interpreted and Dictated by Magen Collazo III, MD Transcribed by Ananya Ahmadi Authenticated and [facility]
--- NOTE | 2022-11-16 13:18 | CT_ITS ---
FINAL REPORT TECHNIQUE: Thin section axial CT with IV contrast supplemented with multiplanar reconstruction under CT angiogram protocol. This study was performed with techniques to keep radiation doses as low as reasonably achievable (ALARA). Individualized dose reduction techniques using automated exposure control or adjustment of mA and/or kV according to the patient''s size were employed. NASCET criteria was utilized during interpretation. CLINICAL HISTORY: hx ICA disection COMPARISON: 06/15/2021 FINDINGS: Aortic arch: Arch shows no significant narrowing. Great vessel origins are widely patent. Right carotid: No significant stenosis is seen of the cervical common or internal carotid artery. Left carotid: The left common carotid artery is normal. There is dissection that involves the proximal left internal carotid artery. Both the true and false lumens are patent. Findings are visually stable since the prior. The distal ICA has an unremarkable appearance. Vertebral: Left vertebral artery is dominant. No significant stenosis is present. IMPRESSION: Carotid proximal left ICA dissection is stable. Reviewed, Interpreted and Dictated by Magen Collazo III, MD Transcribed by Ananya Ahmadi Authenticated and [facility]
[2022-11-16 13:30] LABS: Blood Urea Nitrogen 16 mg/dl (9-20); Estimated Glomerular Filt Rate 74 ml/min (>60); GFR (African American) 89 ML/MIN (>60)
== END ==
PROVIDERS: PCP Family Medicine; Visit Provider Nurse Practitioner Family
DX: E66.9 Obesity, unspecified (principal); G47.33 Obstructive sleep apnea (adult) (pediatric); G93.40 Encephalopathy, unspecified; I10 Essential (primary) hypertension; I25.10 Atherosclerotic heart disease of native coronary artery without angina pectoris; R41.9 Unspecified symptoms and signs involving cognitive functions and awareness; Z86.73 Personal history of transient ischemic attack (TIA), and cerebral infarction without residual deficits; Z86.79 Personal history of other diseases of the circulatory system; Z87.891 Personal history of nicotine dependence; Z99.89 Dependence on other enabling machines and devices
CPT/HCPCS: 36415; 70496; 70498; 82565; 84520; Q9967

== ENCOUNTER 2022-11-18 08:58 | Emergency (ER) | payer MEDICARE, SELFPAY ==
[2022-11-18 09:10] VITALS: BP 133/82; PULSE 91; RESP 18; TEMP 37.1; O2SAT 98; BMI 32.3
--- NOTE | 2022-11-18 09:24 | EXP.UTC ---
Discharge Plan Disposition Patient Disposition: Home, Self-Care Condition: Good Prescriptions Prescriptions: New cefdinir 300 mg capsule 300 mg PO BID Qty: 20 0RF No Action clopidogrel 75 mg tablet 75 mg PO DAILY carvedilol [Coreg] 12.5 mg tablet 12.5 mg PO BID atorvastatin 80 mg tablet 80 mg PO DAILY losartan 25 mg tablet 25 mg PO DAILY diclofenac sodium [Voltaren] 1 % gel 4 g TOPICAL QID PRN (Reason: pain) Qty: 30 2RF Rx Instructions: apply to single knee, ankle, foot; gently massage into area; for foot includes sole/toes/top of foot ibuprofen 600 mg tablet 600 mg PO Q6H PRN torsemide 5 mg tablet 5 mg PO PRN tamsulosin 0.4 mg capsule 0.4 mg PO HS celecoxib 100 mg capsule 100 mg PO DAILY famotidine 40 mg tablet 40 mg PO ONCE cyclobenzaprine 10 MG tablet 10 mg PO BIDP PRN (Reason: Muscle Spasm) Qty: 20 0RF albuterol sulfate 8.5 GM HFA aerosol inhaler 2 puffs IH Q6HP PRN (Reason: Shortness Of Breath) 30 Days Qty: 1 5RF Referrals Follow up/Referrals: Kumar Toledo MD [Primary Care Provider] - See instructions Activity Restrictions/Add. Instructions Additional Instructions/Restrictions: *Monitor Temp, Over the counter Motrin or Tylenol as directed/as needed Tylenol every 4 hours and Motrin every 6 hours (as long as your family doctor has told you that you can take it) for fever or pain. and straight to ER if unable to lower temp less than 101.0 after medication given *Warm salt water gargles may help to soothe the throat *Throat Lozenges? *Warm fluids like tea with honey may help to soothe the throat? *Sleep elevated *Humidifier/Vaporizer Follow up IMMEDIATELY for new or worsening symptoms or no Noticeable improvement over the next 48-72 hours. 911 for difficulty breathing or swallowing Clinical Impressions Clinical Impression: Sinusitis Instructions Patient Instructions: DI for Sinusitis, Sore Throat Discharge ED Provider: Cait Li [facility] General Stated complaint: sore throat, congestion Mode of Arrival: Ambulatory Source of Information: Patient Limitations: No Limitations Time Seen by Provider: 11/18/22 09:24 Description of Symptoms (Recalled from Triage Doc. by RN): PATIENT C/O CONGESTION, FEVER, RUNNY NOSE, AND PRODUCTIVE COUGH SINCE LAST NIGHT HEENT Symptoms (Recalled from RN notes): Yes Resp Symptoms (Recalled from RN notes): Yes Skin Symptoms (Recalled from RN notes): No MS Symptoms (Recalled from RN notes): No Functional Status (Recalled from RN notes): WNL History of Present Illness Provider Complaint: Patient states that he has been having nasal congestion and sore throat along with cough States that he feels like something is draining in the back of his throat and causing a tickle States that he coughed up some mucous this morning but only a small amount that would fit on the tip of your finger. States that this morning he checked his temp and it said 100 but then he checked it with another thermometer and it was 98.0 so not sure if he has had a fever or not Related Data Home Medications Medication Instructions Recorded Confirmed carvedilol 12.5 mg tablet (Coreg) 12.5 mg PO BID 01/29/18 11/02/22 clopidogrel 75 mg tablet 75 mg PO DAILY 01/29/18 11/02/22 ibuprofen 600 mg tablet 600 mg PO Q6H PRN 01/26/21 11/02/22 torsemide 5 mg tablet 5 mg PO PRN 01/26/21 11/02/22 tamsulosin 0.4 mg capsule 0.4 mg PO HS 11/02/21 11/02/22 celecoxib 100 mg capsule 100 mg PO DAILY 09/12/22 11/02/22 famotidine 40 mg tablet 40 mg PO ONCE 09/12/22 11/02/22 atorvastatin 80 mg tablet 80 mg PO DAILY 11/02/22 11/02/22 losartan 25 mg tablet 25 mg PO DAILY 11/02/22 11/02/22 Previous Rx's Medication Instructions Recorded diclofenac sodium 1 % topical gel 4 g topical QID PRN pain #30 grams 11/03/19 (Voltaren) cyclobenzaprine 10 mg tablet 10 mg PO BIDP PRN Muscle Spasm #20 04/07/21 tabs a
[2022-11-18 09:46] LABS: UTC Influenza A Antigen Negative (Negative); UTC Influenza B Antigen Negative (Negative)
[2022-11-18 09:58] VITALS: BP 133/82; PULSE 91; RESP 18; TEMP 37.1; O2SAT 98
== END 2022-11-18 10:01 | disposition home or self-care (01) ==
PROVIDERS: Emergency Provider Nurse Practitioner; PCP Family Medicine
DX: J32.9 Chronic sinusitis, unspecified (principal)
CPT/HCPCS: 87804; 99212; G0463

== ENCOUNTER → 2023-08-15 14:46 | Outpatient (CLI) | payer MEDICARE, SELFPAY ==
--- NOTE | 2023-08-15 14:51 | XR_ITS ---
FINAL REPORT TECHNIQUE: Chest PA & Lateral CLINICAL HISTORY: Shortness of breath COMPARISON: 02/07/2022 FINDINGS: 2 views of the chest were performed. The heart size is normal. The mediastinum is within normal limits. There is no acute cardiopulmonary process. Scarring at the left base is stable. The lungs are underinflated. There are no pleural effusions. There is no pneumothorax. The bony thorax appears intact. IMPRESSION: No acute cardiopulmonary process. Reviewed, Interpreted and Dictated by Robert Quintana MD Transcribed by Tamra Voss Authenticated and [facility]
== END ==
PROVIDERS: PCP Family Medicine; Visit Provider Family Medicine
DX: R06.02 Shortness of breath (principal); Z87.891 Personal history of nicotine dependence
CPT/HCPCS: 71046

== ENCOUNTER → 2023-08-20 13:10 | Outpatient (CLI) | payer MEDICARE, SELFPAY ==
[2023-08-20 13:55] VITALS: PULSE 83; PULSE 85
== END ==
PROVIDERS: PCP Family Medicine; Visit Provider Family Medicine
DX: R06.02 Shortness of breath (principal)
CPT/HCPCS: 94060; 94640

== ENCOUNTER 2023-12-01 10:10 | Emergency (ER) | payer MEDICARE, SELFPAY ==
[2023-12-01 10:35] VITALS: BP 113/74; PULSE 94; RESP 18; TEMP 38; O2SAT 98; BMI 32.3
[2023-12-01 10:52] VITALS: BP 113/74; PULSE 94; RESP 18; TEMP 38; O2SAT 98
--- NOTE | 2023-12-01 10:52 | ED_ITS ---
Discharge Plan Disposition Patient Disposition: Home, Self-Care Condition: Good Prescriptions Prescriptions: New benzonatate 100 mg capsule 100 mg PO TID PRN (Reason: cough) Qty: 30 0RF methylprednisolone [Medrol (Pato)] 4 mg tablets,dose pack See Rx Instructions .Route .COMPLEX 6 Days Qty: 21 0RF Rx Instructions: taper pack; guaifenesin [Mucinex] 600 mg tablet extended release 12hr 600 mg PO BID PRN (Reason: cough) Qty: 20 0RF azithromycin [Zithromax Z-Pato] 250 mg tablet See Rx Instructions .ROUTE .COMPLEX 5 Days Qty: 6 0RF Rx Instructions: For 250 mg dose pack: take 500 mg today (day 1), then 250 mg for 4 days (days 2-5) No Action atorvastatin 80 mg tablet 80 mg PO DAILY carvedilol 25 mg tablet 25 mg PO DAILY clopidogrel 75 mg tablet 75 mg PO DAILY amlodipine 5 mg tablet 5 mg PO DAILY tamsulosin 0.4 mg capsule 0.4 mg PO DAILY torsemide 5 mg tablet 5 mg PO DAILY losartan 25 mg tablet 25 mg PO DAILY metformin 500 mg tablet extended release 24 hr 500 mg PO DAILY Referrals Follow up/Referrals: Kumar Toledo MD [Primary Care Provider] - See instructions Activity Restrictions/Add. Instructions Additional Instructions/Restrictions: *Monitor Temp, Over the counter Motrin or Tylenol as directed/as needed Tylenol every 4 hours and Motrin every 6 hours (as long as your family doctor has told you that you can take it) for fever or pain. and straight to ER if unable to lower temp less than 101.0 after medication given *Warm salt water gargles may help to soothe the throat *Throat Lozenges? *Warm fluids like tea with honey may help to soothe the throat? *Sleep elevated *Humidifier/Vaporizer Follow up IMMEDIATELY for new or worsening symptoms or no Noticeable improvement over the next 48-72 hours. 911 for difficulty breathing or swallowing You were tested for today for COVID19 your test result should be back in the next 24-48 hours, you may check your results on the [facility] [employer] [facility] Portal if your COVID or Influenza is positive you must Quarantine for 5 days Clinical Impressions Clinical Impression: Sinusitis Qualifiers: Sinusitis location: unspecified location Chronicity: unspecified Qualified Code(s): J32.9 - Chronic sinusitis, unspecified Instructions Patient Instructions: DI for Sinusitis, Sinusitis Discharge ED Provider: Cait Li [facility] General Stated complaint: congestion, cough Mode of Arrival: Ambulatory Source of Information: Patient Limitations: No Limitations Time Seen by Provider: 12/01/23 10:52 Description of Symptoms (Recalled from Triage Doc. by RN): PATIENT C/O WATERY EYES, HOARS, COUGH, BODY ACHES AND CHILLS HEENT Symptoms (Recalled from RN notes): Yes Resp Symptoms (Recalled from RN notes): Yes Skin Symptoms (Recalled from RN notes): No MS Symptoms (Recalled from RN notes): No Functional Status (Recalled from RN notes): WNL History of Present Illness Provider Complaint: Patient states that he started feeling bad yesterday with scratchy throat, drainage in the back of his throat, body aches, chills, hoarse voice, an cough States that he feels like he is having drainage into his chest so today when he was feeling worse he came in to get checked Related Data Home Medications Medication Instructions Recorded Confirmed amlodipine 5 mg tablet 5 mg PO DAILY 12/01/23 12/01/23 atorvastatin 80 mg tablet 80 mg PO DAILY 12/01/23 12/01/23 carvedilol 25 mg tablet 25 mg PO DAILY 12/01/23 12/01/23 clopidogrel 75 mg tablet 75 mg PO DAILY 12/01/23 12/01/23 losartan 25 mg tablet 25 mg PO DAILY 12/01/23 12/01/23 metformin 500 mg tablet,extended 500 mg PO DAILY 12/01/23 12/01/23 release 24 hr tamsulosin 0.4 mg capsule 0.4 mg PO DAILY 12/01/23 12/01/23 torsemide 5 mg tablet 5 mg PO DAILY 12/01/23 12/01/23 Previous Rx's Medication Instructions Recorded azithromycin 250 mg tablet See Rx Instructions PO .COMPLEX 5 12/01/23 (Zithromax Z-Pato) days #6 tabs benzonatate 100 mg capsule 100 mg PO TID PRN cough #30 caps 12/01/23 guaifenesin 600 mg tablet, 600 mg PO BID PRN cough #20 tabs 12/01/23 extended release 12 hr (Mucinex) methylprednisolone 4 mg tablets in See Rx Instructions .Route 12/01/23 a dose pack (Medrol (Pato)) .COMPLEX 6 days #21 tabs Allergies Allergy/AdvReac Type Severity Reaction Status Date / Time No Known Allergies Allergy Verified 01/04/23 13:02 Worker's Comp Is this a Worker's [facility]?: [facility]: The information contained in this section may have been updated after the patient was seen, as this information can be updated by other users. Medical History CAD (coronary artery disease) History of carotid artery dissection Hypertension Internal carotid artery dissection URVASHI on CPAP Surgical History History of cardiac catheterization History of colonoscopy History of heart artery stent History of hernia repair Family History (Updated 01/04/23 @ 13:04 by Cait Rosario) Other Cancer Coronary artery disease Dementia Diabetes Heart attack Stroke Social History Smoking Status: Former smoker second hand exposure: No alcohol intake: never counseling given: No substance use type: denies use counseling given: No current occupational status: employed Travel in the last 8 weeks: None adopted: No caregiver/support person: No (he was the caregiver for his mom; she recently passed in April 2022) foster care: No household members: other housing: house lives independently: Yes marital status: number of children: 1 Hx Recent Travel: No sexually active: No caffeine: Yes physical activity: none working smoke detector in home: Yes fire extinguisher in home: No carbon monox detector in home: Yes firearms in home: Yes firearms unloaded and locked: Yes do you feel safe at home: Yes victim of physical abuse: No victim of emotional abuse: No victim of sexual abuse: No would you like helpful sources: No ROS Obtained: Yes All systems reviewed & no additional complaints except as documented and Yes Systems reviewed as appropriate & no additional complaints except as documented Constitutional Constitutional: Reports system reviewed and no additional complaints, except as documented, Reports as per HPI, Reports body ache, Reports chills and Reports fever(s) ENT Ears, Nose, Mouth, and Throat: Reports system reviewed and no additional complaints, except as documented, Reports as per HPI, Reports nasal congestion, Reports sinus pressure and Reports sore throat (scratchy throat) Cardiovascular Cardiovascular: Reports system reviewed and no additional complaints, except as documented and Reports as per HPI Respiratory Respiratory: Reports system reviewed and no additional complaints, except as documented, Reports as per HPI, Denies shortness of breath, Reports chest congestion and Reports cough Gastrointestinal Gastrointestingal: Reports system reviewed and no additional complaints, except as documented and as per HPI Physical Exam General General appearance: alert and in no apparent distress ENT ENT exam: Present mucous membranes moist Expanded ENT Exam Nose exam: Present sinus tenderness Throat exam: Present other (Pharyngeal erythema noted with PND) Respiratory Respiratory exam: Present normal lung sounds bilaterally; Absent respiratory distress or wheezes Cardiovascular Cardiovascular exam: Present regular rate, normal rhythm and normal heart sounds Abdominal Exam Abdominal exam: Present soft and normal bowel sounds; Absent distention or tenderness Neurological Exam Neurological exam: Present alert, oriented X3 and normal gait Medical Decision Making Venu Inquiry Pt receiving controlled substance: No Venu was queried for this patient: No Vital Signs: 12/01/23 10:35 Temperature 100.4 F H Temperature Source Oral Pulse Rate [Left Brachial] 94 H Respiratory Rate 18 Blood Pressure [Left Arm] 113/74 Blood Pressure Mean [Left Arm] 87 Blood Pressure Source [Left Arm] Automatic Cuff Blood Pressure Position [Left Arm] Sitting 02 Sat by Pulse Oximetry 98 Oxygen Delivery Method Room Air Lab Data Lab results reviewed: Yes I reviewed the patient's lab results. Medical Decision Narrative: Patient states that he has taken azithromycin and Medrol in the past without complications or reactions
[2023-12-01 11:06] LABS: UTC Influenza A Antigen Negative (Negative)
[2023-12-01 11:07] LABS: UTC Influenza B Antigen Negative (Negative)
== END 2023-12-01 11:10 | disposition home or self-care (01) ==
PROVIDERS: Emergency Provider Nurse Practitioner; PCP Family Medicine
DX: J01.90 Acute sinusitis, unspecified (principal); R05.9 Cough, unspecified; R50.9 Fever, unspecified; R07.0 Pain in throat; R09.81 Nasal congestion; R09.82 Postnasal drip; M79.18 Myalgia, other site; I11.9 Hypertensive heart disease without heart failure; I25.10 Atherosclerotic heart disease of native coronary artery without angina pectoris; Z95.5 Presence of coronary angioplasty implant and graft; Z87.891 Personal history of nicotine dependence
CPT/HCPCS: 87635; 87804; 99212; 99214; G0463

== ENCOUNTER 2024-01-21 11:21 | Outpatient (CLI) | payer MEDICARE, SELFPAY ==
[2024-01-21 12:07] LABS: Basophils % 0.3 % (0.1-2.0); Eosinophils # 0.4 K/mm3 (0.0-0.4); Hematocrit 46.4 % (42.0-52.0); Hemoglobin 14.9 g/dL (14.1-18.0); Lymphocytes # 1.7 K/mm3 (0.7-4.5); Lymphocytes % 24.7 % (10-50); Mean Corpuscular HGB Conc 32.1 g/dL (31.8-35.4); Mean Corpuscular Hemoglobin 30.6 pg (27.0-31.2); Mean Corpuscular Volume 95.4 fl (80-94); Monocytes # 0.4 K/mm3 (0.1-1.0); Monocytes % 5.6 % (1.7-9.3); Neutrophils # 4.5 K/mm3 (1.8-7.8); Neutrophils % 64.4 % (37.0-80.0); Platelet Count 258 K/mm3 (142-424); Red Blood Count 4.86 M/mm3 (4.60-6.20); Red Cell Distribution Width 14.2 % (11.5-17.5)
[2024-01-21 12:11] LABS: D-Dimer 0.45 ug/mL (0.0-0.5)
[2024-01-21 12:28] LABS: Alanine Aminotransferase 23 U/L (12-78); Albumin Level 4.3 g/dl (3.5-5.0); Albumin/Globulin Ratio 1.6 (1.1-1.8); Alkaline Phosphatase 100 U/L (38-126); Anion Gap 8.8 mEq/L (5-15); Aspartate Amino Transferase 28 U/L (17-59); Bilirubin,Total 0.5 mg/dl (0.2-1.3); Blood Urea Nitrogen 13 mg/dl (9-20); Calcium 9.7 mg/dl (8.4-10.2); Carbon Dioxide 30 mmol/L (22.0-30.0); Chloride 106 mmol/L (98-107); Chol/HDL Ratio 6.6 (1-3.5); Cholesterol 198 mg/dl (140-200); Estimated Glomerular Filt Rate 83 ml/min (>60); GFR (African American) 100 ML/MIN (>60); Globulin 2.7 g/dL (1.3-3.2); Glucose 118 mg/dl (74-100); HDL Cholesterol 30 mg/dl (40-60); Potassium 4.8 mmoL/L (3.5-5.1); Sodium 140 mmol/L (136-145); Triglycerides 364 mg/dl (30-150); VLDL Cholesterol 73 mg/dL (0-40)
[2024-01-21 12:36] LABS: Hemoglobin A1C 6.2 % (4.0-6.0)
[2024-01-21 12:38] LABS: NT Pro Brain Natriuretic Pep. < 20.0 pg/mL (0-125)
[2024-01-21 12:39] LABS: Direct LDL Cholesterol 85.18 mg/dL (100-129)
[2024-01-21 12:59] LABS: Thyroid Stimulating Hormone 1.65 uIU/mL (0.465-4.68)
== END 2024-01-21 23:59 ==
LOC: LAB 11:22
PROVIDERS: PCP Family Medicine; Visit Provider Nurse Practitioner
DX: R06.02 Shortness of breath (principal); I25.89 Other forms of chronic ischemic heart disease; E78.5 Hyperlipidemia, unspecified; R73.03 Prediabetes
CPT/HCPCS: 36415; 80053; 80061; 83036; 83880; 84443; 85025; 85378

== ENCOUNTER 2024-03-03 13:31 | Outpatient (CLI) | payer MEDICARE, SELFPAY ==
--- NOTE | 2024-03-03 13:38 | XR_ITS ---
FINAL REPORT CLINICAL HISTORY: CHRONIC CONSTIPATION FINDINGS: A single view of the abdomen was obtained. There is a nonobstructive bowel gas pattern. There is a moderate amount of retained stool in the colon. There are no abnormally dilated loops of small bowel. There are no abnormal calcifications. Multiple prostate seed implants are present. IMPRESSION: Nonobstructive bowel gas pattern with a moderate amount of retained stool. Reviewed, Interpreted and Dictated by Magen Collazo III, MD Transcribed by Georgiana Alexandra Authenticated and [facility]
== END 2024-03-03 23:59 ==
LOC: RAD 13:32
PROVIDERS: PCP Family Medicine; Visit Provider Family Medicine
DX: K59.09 Other constipation (principal)
CPT/HCPCS: 74018

== ENCOUNTER 2024-05-01 08:04 | Outpatient (CLI) | payer MEDICARE, SELFPAY ==
--- NOTE | 2024-05-01 08:25 | CT_ITS ---
FINAL REPORT TECHNIQUE: Axial CT images of the chest were obtained with and without contrast. Coronal and sagittal reformatted images were also obtained. This study was performed with techniques to keep radiation doses as low as reasonably achievable, (ALARA). Individualized dose reduction techniques using automated exposure control or adjustment of mA and/or KV according to the patient's size were employed. CLINICAL HISTORY: SOA COMPARISON: None FINDINGS: CT CHEST WITH AND WITHOUT CONTRAST: CT examination of the chest reveals no evidence of axillary adenopathy. The mediastinum and lisa do not reveal any mass or adenopathy. No confluent infiltrates or effusions are seen. No pericardial effusion is present. There is mild left base atelectasis. There is a 7 mm nodule in the lateral left lower lobe, without other nodules noted. There is mild wall thickening of the distal esophagus, favor inflammatory change. A small hiatal hernia is present. There are bilateral simple appearing right renal cysts, the largest of which measures 30 mm in size in the right kidney. IMPRESSION: 7 mm nodule in the lateral left lower lobe. Recommend follow-up CT of the chest in 6 months. There is mild wall thickening of the distal esophagus as well as a small hiatal hernia, favor inflammatory. Bilateral simple cysts, the largest in the in the right kidney measuring 3 cm. No follow-up is recommended at this time. Reviewed, Interpreted and Dictated by Magen Collazo III, MD Transcribed by Lily Gastelum Authenticated and . [facility]
[2024-05-01 08:59] LABS: Blood Urea Nitrogen 17 mg/dl (9-20); Estimated Glomerular Filt Rate 73 ml/min (>60); GFR (African American) 89 ML/MIN (>60)
--- NOTE | 2024-05-01 09:23 | CA_ITS ---
APPROVED REPORT EXAM: Comprehensive 2D, Doppler, and color-flow Echocardiogram City Distribution Clerk: Mignon Rebolledo RDCS Ht: 5 ft 10 in Wt: 218lbs BSA: 2.17 BP: 141/82 mmHg Indications: SOA CAD HTN HLP URVASHI M-Mode Dimensions RVDd 2.26 cm (0.9-2.6) LA Diam 4.47 cm (1.9-4.0) LVDd 6.01 cm (3.5-5.7) LVDs 4.20 cm (3.5-5.7) IVSd 0.82 cm (0.6-1.1) PWd 1.03 cm (0.6-1.1) EF (Teich) 56.50% EPSs 2.35 cm FS 30.10% EDV (Teich) 180.70 mL ESV (Teich) 78.60 mL LV Diastology E Decel Time 157 (160-240 msec) E/A Ratio 1.2 Aortic Valve AI PHT 589.00 ms Mitral Valve MV E Max Josh. 76.0 (40-130 cm/s) MV A Velocity 65.0 (40-130 cm/s) E/A Ratio 1.17 MV PHT 46.0 ms Left Ventricle The left ventricle is normal size. The left ventricular systolic function is normal. The left ventricular ejection fraction is within the normal range. There is increased LV wall thickness. There is normal LV segmental wall motion. The left ventricular diastolic function is normal. LVEF is 55%. Right Ventricle Right ventricle is mildly dilated. Right ventricle is mildly hypokinetic. Atria The left atrium size is normal. The right atrium size is normal. There is no Doppler evidence of interatrial shunt. Aortic Valve The aortic valve opens well. There is no aortic valvular stenosis. Trace aortic regurgitation. Mitral Valve The mitral valve leaflets are mildly thickened. No evidence of mitral valve stenosis. Trace mitral regurgitation. Tricuspid Valve The tricuspid valve leaflets are thin and pliable. Trace tricuspid regurgitation. There is insufficient TR jet to estimate RVSP. Pulmonic Valve The pulmonary valve is normal in structure. Trace pulmonic regurgitation. Great Vessels The aortic root is normal in size. The ascending aorta is not well-visualized. IVC is normal in size and collapses >50% with inspiration. Pericardium There is no pericardial effusion. Other Information Study Quality: Fair Conclusion Normal LV systolic function. Mildly dilated RV with mild reduction in RV function. No significant valvular stenosis or regurgitation. Electronically signed by : Yoli Rivero MD 05/04/2024 23:08:24
[2024-05-01] MEDS: IOPAMIDOL-370 (76%);100ML BOTTLE 75 ML IV (09:47)
[2024-05-01] MEDS: SODIUM CHLORIDE 0.9% 10ML SYR (RAD ONLY) 10 ML IV (09:47)
== END 2024-05-01 23:59 | disposition home or self-care (01) ==
LOC: RAD 08:04
PROVIDERS: PCP Family Medicine; Visit Provider Nurse Practitioner
DX: R06.02 Shortness of breath (principal)
CPT/HCPCS: 36415; 71270; 82565; 84520; 93306; Q9967

== ENCOUNTER 2024-06-14 19:00 | Emergency (ER) | payer MEDICARE, SELFPAY ==
[2024-06-14 19:02] VITALS: BP 165/93; PULSE 85; RESP 12; TEMP 36.6; O2SAT 97; BMI 31.2
--- NOTE | 2024-06-14 19:10 | ECG_ITS ---
APPROVED REPORT Exam: Resting ECG HR:81 bpm ECG Measurements Heart Rate 81 AXES NC 174 P 62 QRSd 113 QRS 37 QT 353 T 61 QTc 390 Conclusion SINUS RHYTHM MODERATE INTRAVENTRICULAR CONDUCTION DELAY [110+ ms QRS DURATION] BORDERLINE ECG Electronically signed by : JUDITH DC, 06/15/2024 00:12:36
--- NOTE | 2024-06-14 19:42 | PC.NURSE ---
Rounded on pt, nurse was in the room and pt didnt need anything at this time. Call light is within reach of pt.
[2024-06-14] MEDS: MECLIZINE 25MG TABLET 25 MG PO (20:02)
--- NOTE | 2024-06-14 21:03 | HMH.EDGENADL ---
Discharge Plan Disposition Patient Disposition: Home, Self-Care Chief Complaint: Dizziness Prescriptions Prescriptions: No Action atorvastatin 80 mg tablet 80 mg PO DAILY clopidogrel 75 mg tablet 75 mg PO DAILY amlodipine 5 mg tablet 5 mg PO DAILY tamsulosin 0.4 mg capsule 0.4 mg PO DAILY losartan 25 mg tablet 25 mg PO DAILY metformin 500 mg tablet extended release 24 hr 500 mg PO DAILY carvedilol 25 mg tablet 25 mg PO BID torsemide 5 mg tablet 5 mg PO DAILY PRN Referrals Follow up/Referrals: Kumar Toledo MD [Primary Care Provider] - See instructions Activity Restrictions/Add. Instructions Additional Instructions/Restrictions: At this time it was felt you are safe to be discharged home. If new or worsening symptoms please do not hesitate to return the emergency department. As discussed there is no way to know if the blood vessel in your neck is worse and if you wish to return for CT scan in the emergency department at any point please do so. Please follow-up with cardiology as discussed. Clinical Impressions Clinical Impression: Vasovagal near syncope Discharge ED Provider: Ivan Arthur General Adult HPI General Chief complaint: Dizziness Stated complaint: Dizziness,SOA Time Seen by Provider: 06/14/24 19:20 Mode of Arrival: Ambulatory Source of Information: Patient Limitations: No Limitations Description of Symptoms (Recalled from ER Triage Doc. by RN): Pt presents to the ED for dizziness. Pt states he has been dx with vertigo previously but could not find his meclizine so he came to the ER. Pt is a cardiology patient and had an appt last week and no cardiac issues at this time. Pt is supposed to follow up w/ cards for a stress test this week. Pt does not have any cardiac complaints at this time. Pt is A&O*4. History of Present Illness HPI narrative: Patient is a 73-year-old male with past medical history of internal carotid artery dissection, hypertension, intracranial arachnoid cyst, hypertension who presents emergency department for evaluation of dizziness. Over the last month patient has had intermittent exertional shortness of breath which she is pending cardiology evaluation this coming Sunday. Over the last week upon rising from a seated position with ambulation patient comes lightheaded, no true loss of consciousness. He has a history of a artery tear that is currently being observed. No other acute complaints at this time. No chest pain currently. Related Data Home Medications Medication Instructions Recorded Confirmed amlodipine 5 mg tablet 5 mg PO DAILY 12/01/23 05/26/24 atorvastatin 80 mg tablet 80 mg PO DAILY 12/01/23 05/26/24 clopidogrel 75 mg tablet 75 mg PO DAILY 12/01/23 05/26/24 losartan 25 mg tablet 25 mg PO DAILY 12/01/23 05/26/24 metformin 500 mg tablet,extended 500 mg PO DAILY 12/01/23 05/26/24 release 24 hr tamsulosin 0.4 mg capsule 0.4 mg PO DAILY 12/01/23 05/26/24 carvedilol 25 mg tablet 25 mg PO BID 05/26/24 05/26/24 torsemide 5 mg tablet 5 mg PO DAILY PRN 05/26/24 05/26/24 Allergies Allergy/AdvReac Type Severity Reaction Status Date / Time No Known Allergies Allergy Verified 05/26/24 12:59 [facility] Disclaimer: The information contained in this section may have been updated after the patient was seen, as this information can be updated by other users. Medical History History of carotid artery dissection October 2020 in the setting of uncontrolled hypertension, evaluated and treated at [facility], CTA neck 11/16/2022 indicates carotid proximal left ICA dissection stable in comparison to imaging from 06/15/2021. On best medical therapy. Active follow-up with cardiology, Dr. Calzada with appointment this month. CAD (coronary artery disease) URVASHI on CPAP Severe with excellent compliance, symptomatic improvement, no evidence of hypoxemia on AutoPap 07/09 Hypertension Internal carotid artery dissection Surgical History History of colonoscopy History of cardiac catheterization History of hernia repair History of heart artery stent Family History Other Cancer Coronary artery disease Dementia Diabetes Heart attack Stroke Social History Smoking Status: Former smoker second hand exposure: No alcohol intake: never counseling given: No substance use type: denies use counseling given: No current occupational status: employed Travel in the last 8 weeks: None adopted: No caregiver/support person: No (he was the caregiver for his mom; she recently passed in April 2022) foster care: No household members: other housing: house lives independently: Yes marital status: number of children: 1 Hx Recent Travel: No sexually active: No caffeine: Yes physical activity: none working smoke detector in home: Yes fire extinguisher in home: No carbon monox detector in home: Yes firearms in home: Yes firearms unloaded and locked: Yes do you feel safe at home: Yes victim of physical abuse: No victim of emotional abuse: No victim of sexual abuse: No would you like helpful sources: No ROS Obtained: Yes Systems reviewed as appropriate & no additional complaints except as documented Physical Exam General General appearance: alert and in no apparent distress Head Head exam: atraumatic and normocephalic Eye Eye exam: Present PERRL and EOMI ENT ENT exam: Present mucous membranes moist and TM's normal bilaterally Neck Neck exam: Present normal inspection Chest Chest inspection: Present normal inspection and symmetric chest wall rise Respiratory Respiratory exam: Absent respiratory distress Cardiovascular Cardiovascular exam: Present regular rate and normal rhythm Abdominal Exam Abdominal exam: Present soft; Absent tenderness Extremities Exam Extremities exam: Present normal inspection Neurological Exam Neurological exam: Present alert, oriented X3, CN II-XII intact and normal gait; Absent motor sensory deficit Psychiatric Psychiatric exam: Present normal affect Skin Skin exam: Present warm and dry Medical Decision Making Venu Inquiry Pt receiving controlled substance: No Vital Signs: 06/14/24 19:02 Temperature 97.9 F Temperature Source Oral Pulse Rate [Right] 85 Respiratory Rate 12 Blood Pressure [Right Arm] 165/93 H Blood Pressure Mean [Right Arm] 117 02 Sat by Pulse Oximetry 97 Oxygen Delivery Method Room Air Lab Data Lab Results 06/14/24 19:33: WBC 7.7, RBC 4.42 L, Hgb 13.4 L, Hct 40.3 L, MCV 91.3, MCH 30.3, MCHC 33.2, RDW 15.0, Plt Count 273, MPV 8.8, Neut % (Auto) 66.3, Lymph % (Auto) 23.3, Sevier % (Auto) 6.3, Eos % (Auto) 3.5, Baso % (Auto) 0.7, Neut # (Auto) 5.1, Lymph # (Auto) 1.8, Sevier # (Auto) 0.5, Eos # (Auto) 0.3, Baso # (Auto) 0.1, Sodium 138, Potassium 4.0, Chloride 106, Carbon Dioxide 26, Anion Gap 10.0, BUN 21 H, Creatinine 1.20, Estimated Creat Clear 78, Estimated GFR 60, Est GFR ( Amer) 72, Glucose 97, Calcium 9.4, Magnesium 1.7, Total Bilirubin 0.4, AST 34, ALT 36, Alkaline Phosphatase 90, Troponin I < 0.01, Total Protein 7.1, Albumin 4.3, Globulin 2.8, Albumin/Globulin Ratio 1.5 06/14/24 19:33 06/14/24 19:33 Orders (Tests/Meds): ED MEDICATIONS Discontinued Medications Generic Name Dose Route Start Last Admin Trade Name Freq PRN Reason Stop Dose Admin Meclizine HCl 25 mg 06/14/24 19:46 06/14/24 20:02 Meclizine 25mg Tablet PO 06/14/24 19:47 25 mg ONCE ONE Administration ORDERS Category Date Time Status CT angio head Stat Cat Scan 06/14/24 21:[address] angio neck Stat Cat Scan 06/14/24 21:[address] head/brain wo con Stat Cat Scan 06/14/24 21:02 Ordered CBC w/Auto Diff [Complete Blood Count Auto Diff] Stat Lab 06/14/24 19:33 Completed CMP [Comprehensive Metabolic Panel] Stat Lab 06/14/24 19:33 Completed MG [Magnesium] Stat Lab 06/14/24 19:33 Completed Trop I [Troponin I] Stat Lab 06/14/24 19:33 Completed Troponin I Q3H Lab 06/15/24 00:15 Ordered Troponin I Q3H Lab 06/15/24 03:15 Ordered ECG Data Tracing #1: Independently interpreted by me, rate is 81, rhythm is regular, axis is normal, no ST elevation in anatomical contiguous leads, QTc 390 Medical Decision Narrative: In summary patient is a 73-year-old male past medical history described above presents emergency department for evaluation of intermittent dizziness. Patient is hemodynamically stable nontoxic-appearing with normal, afebrile. History and physical strongly consistent with vasovagal presyncope. Patient does not have any cerebellar signs on physical exam with [id number] and is ambulating appropriately. Differential includes electrolyte abnormality, among others. If patient had worsening of his known carotid dissection I would expect symptoms to be persistent not only with exertion with lightheadedness and no localizing findings. I did offer the patient a noncontrasted CT scan of the head CTA of the head and neck knowing that there is no way I could rule this out however he does not wish to pursue this at this time. Patient went is ambulatory at bedside without symptoms and had total resolution of symptoms. He was requesting patient directed discharge without imaging should his labs be okay. Hematologic labs reviewed by me and are nonactionable. I suspect that patient has vasovagal presyncope and is appropriate for outpatient management at this time. He was given multiple return precautions and verbalized understanding will follow-up with cardiology next week. Critical Care Critical Care Time Critical Care Time: No
[2024-06-14 21:15] LABS: Chloride 106 mmol/L (98-107); Sodium 138 mmol/L (136-145)
[2024-06-14 21:18] LABS: Alanine Aminotransferase 36 U/L (12-78); Albumin Level 4.3 g/dl (3.5-5.0); Albumin/Globulin Ratio 1.5 (1.1-1.8); Alkaline Phosphatase 90 U/L (38-126); Aspartate Amino Transferase 34 U/L (17-59); Bilirubin,Total 0.4 mg/dl (0.2-1.3); Blood Urea Nitrogen 21 mg/dl (9-20); Carbon Dioxide 26 mmol/L (22.0-30.0); Creatinine Clearance Estimated 78 mL/min (50-200); Estimated Glomerular Filt Rate 60 ml/min (>60); GFR (African American) 72 ML/MIN (>60); Globulin 2.8 g/dL (1.3-3.2); Total Protein,Serum 7.1 g/dl (6.3-8.2)
[2024-06-14 21:19] LABS: Basophils # 0.1 K/mm3 (0-0.2); Basophils % 0.7 % (0.1-2.0); Calcium 9.4 mg/dl (8.4-10.2); Eosinophils # 0.3 K/mm3 (0.0-0.4); Eosinophils % 3.5 % (0.1-12.0); Glucose 97 mg/dl (74-100); Hematocrit 40.3 % (42.0-52.0); Hemoglobin 13.4 g/dL (14.1-18.0); Lymphocytes # 1.8 K/mm3 (0.7-4.5); Lymphocytes % 23.3 % (10-50); Magnesium 1.7 mg/dl (1.6-2.3); Mean Corpuscular HGB Conc 33.2 g/dL (31.8-35.4); Mean Corpuscular Hemoglobin 30.3 pg (27.0-31.2); Mean Corpuscular Volume 91.3 fl (80-94); Mean Platelet Volume 8.8 fl (7.4-10.4); Monocytes # 0.5 K/mm3 (0.1-1.0); Monocytes % 6.3 % (1.7-9.3); Neutrophils # 5.1 K/mm3 (1.8-7.8); Neutrophils % 66.3 % (37.0-80.0); Platelet Count 273 K/mm3 (142-424); Red Blood Count 4.42 M/mm3 (4.60-6.20); White Blood Count 7.7 K/mm3 (4.8-10.8)
[2024-06-14 21:31] LABS: Troponin I < 0.01 ng/ml (0.00-0.034)
--- NOTE | 2024-06-14 21:41 | HMH.ITSTN ---
WENT TO GET PATIENT FOR CT, PT ADVISED HE DIDN'T WANT CT SCAN DONE AT THIS TIME, HIS SYMPTOMS HAVE RESOLVED.
[2024-06-14 22:00] VITALS: BP 140/78; PULSE 73; RESP 14; TEMP 36.6; O2SAT 93
== END 2024-06-14 22:07 | disposition home or self-care (01) ==
PROVIDERS: Emergency Provider Emergency Medicine; PCP Family Medicine
DX: R55 Syncope and collapse (principal); R42 Dizziness and giddiness; R06.02 Shortness of breath; I10 Essential (primary) hypertension; Z86.79 Personal history of other diseases of the circulatory system; Z95.5 Presence of coronary angioplasty implant and graft; Z87.891 Personal history of nicotine dependence
CPT/HCPCS: 80053; 83735; 84484; 85025; 93005; 99283

== ENCOUNTER 2024-09-05 11:23 | Outpatient (CLI) | payer MEDICARE, SELFPAY ==
--- NOTE | 2024-09-05 11:29 | XR_ITS ---
FINAL REPORT CLINICAL HISTORY: PAIN IN RT HEEL COMPARISON: None FINDINGS: RIGHT FOOT: Three views of the right foot were obtained. There is no acute fracture or dislocation. There are mild degenerative changes. There is no soft tissue abnormality. IMPRESSION: Degenerative changes without acute bony abnormality. Reviewed, Interpreted and Dictated by Magen Collazo III, MD Transcribed by Elda Ren Authenticated and [facility]
== END 2024-09-05 23:59 | disposition home or self-care (01) ==
LOC: RAD 11:24
PROVIDERS: PCP Family Medicine; Visit Provider Family Medicine
DX: M79.671 Pain in right foot (principal)
CPT/HCPCS: 73630

== ENCOUNTER 2024-12-26 09:43 | Outpatient (CLI) | payer MEDICARE, OTHER, SELFPAY ==
--- NOTE | 2024-12-26 09:47 | US_ITS ---
FINAL REPORT CLINICAL HISTORY: DISORDER OF KIDNEY COMPARISON: None FINDINGS: RENAL ULTRASOUND Ultrasound images of the kidneys were obtained. The right kidney measures 12.0 cm in length. There is a right renal cyst measuring up to 3 cm. A trace amount of fluid is seen surrounding the right kidney. No evidence of mass. There is no hydronephrosis. The left kidney measures 12.6 cm in length. It is normal echogenicity. There is no hydronephrosis. IMPRESSION: Right renal cyst. Reviewed, Interpreted and Dictated by Robert Quintana MD Transcribed by Tamra Voss Authenticated and [facility]
== END 2024-12-26 23:59 | disposition home or self-care (01) ==
LOC: RAD 09:45
PROVIDERS: PCP Family Medicine; Visit Provider Urology
DX: N28.89 Other specified disorders of kidney and ureter (principal)
CPT/HCPCS: 76770

== ENCOUNTER 2025-07-06 14:23 | Outpatient (CLI) | payer MEDICARE, OTHER, SELFPAY ==
--- OUTSIDE RECORDS SUMMARY | 2025-06-05 05:45 | XMS_ITS ---
Author Organization [facility] Address [address] [place] [id number] Care Team Providers Care School Inspector Name Role Phone Kumar Toledo Primary Care Provider [phone] Allergies No Known Allergies Results Component [...] 37 Performing Lab: Notes/Report: Test performed by [employer] [facility] [address] [place] [address] , [address], [place] [address] Giovani Sanz MD, Hedis Coordinator CLIA: [id number] Cholesterol 150 <200 mg/dL Triglycerides 162 <150 [...] Interpretation:Normal Performing Lab: Notes/Report: Test performed by [employer] [address] [place], [place] [address] [place] , [place] [address] Giovani Sanz MD, Hedis Coordinator CLIA: [id number] TSH reflex to FT4 2.05 0.43-5.25 mU/L P-Microalbumin/Creatinine, R andom Urine Sample Reviewed date:06/09/2025 09:44:23 AM Interpretation:Normal Performing Lab: Notes/Report: Test performed by [employer] [address] [place], [place] [address] [place] , [place] [address] Giovani Sanz MD, Hedis Coordinator CLIA: [id number] Albumin/Creatinine Ratio, Urine 13 0-30 ug/m g [...] Provider Diagnosis Suzan [address] [facility] [address] [place] [id number] 06/05/2025 Kumar Toledo Impaired fasting glu cose R73.01 ; Mixed hyperlipidemia E78.2 ; Coronary artery disease involving ho-chunk coronary artery of ho-chunk heart without angina pectoris I25.10 and HTN (hypertension) I10 Assessments Encounter Date Diagnosis (ICD Code) Assessment Notes Treatment Notes Treatment Clinical Notes Section Notes 06/05/2025 Impaired fasting glucose (ICD-10 - R73.01) 06/05/2025 Mixed hyperlipidemia (ICD-10 - E78.2) 06/05/2025 Coronary artery disease involving ho-chunk coronary artery of ho-chunk heart without angina pectoris (ICD-10 - I25.10) [...] phone to repo rt test results, Reason: Provider Name:Kumar Winn , 08/13/2025 09:15:00 AM, [address] [facility] 36 [facility], [address], [place], [id number], Progress Notes * HSAWN HARTMANDOB: (74 yo M)Acc No.[id number]:06/05/2025 Progress Notes Patient: SHAWN MUNOZ Provider: Jolanta Toledo M.D. :1950 A ge:74 Y S ex:Male Date:06/05/2025 Address:[address] [place], [place] [id number] Subjective: * Chief Complaints: * 1 [...] Diagno stic Procedure: D ehydration, Dizziness- [facility] 04/24/2016, Stent Placement- [facility] 2007. * Family History: F ather: alive, diagnosed with Hypertension, family history unknown . M other: alive, diagnosed with Hypertension, Diabetes, Heart Disease. S iblings: alive, diagnosed with Diabetes. Children: alive. 1 brother(s) . 1 daughter(s) - healthy. . Mother - AFib, CAD, Pacemaker, [place] Brother - Neuropathy. * Social History: C [...] 3 . C oronary artery disease involving ho-chunk coronary artery of ho-chunk heart without angina pectoris - I25.10 4 [...] See phone encounter 3.?Coronary artery disease involving ho-chunk coronary artery of ho-chunk heart without angina pectoris? Continue Clopidogrel Bisulfate [...] G 2211 Complex e/[place], [address] GLUCOSE TEST, 39005 GLYCATED HEMOGLOBIN TEST, Modifiers: QW , 3044F HG A1C LEVEL LT 7.0%, 1036F TOBACCO NON-USER, G8950 PREHTN/HTN BP DOC INDCD F/U DOC, G8752 MOST RECENT SYSTOLIC BP < 140MM HG, G8754 MOST RECENT DIASTOLIC BP < 90MM HG * Follow Up: v ia phone to report test results * Images: Billing Information: * Visit Code: 10170 Office Visit, Est Pt., Level 4. * Procedure Codes: G2211 Complex e/[place]. [address] GLUCOSE TEST. 07074 GLYCATED HEMOGLOBIN TEST. Modifiers: QW 3044F HG A1C LEVEL LT 7.0%. 1036F TOBACCO NON-USER. G8950 PREHTN/HTN BP DOC INDCD F/U DOC. G8752 MOST RECENT SYSTOLIC BP < 140MM HG. G8754 MOST RECENT DIASTOLIC BP < 90MM HG. * Electronic signature of Cayla Toledo MD on 07/06/2025 at 02:29 PM EDT Sign off status: Pending * Provider: Jolanta Toledo M.D. Date: 06/05/2025 Generated for Radha harry/Gregor/Gavinoitting on: 0 07/06/2025 02:29 PM EDT History and Physical Notes * HPI [...]
--- OUTSIDE RECORDS SUMMARY | 2025-06-24 13:20 | XMS_ITS | Encounter Summary ---
Author Organization [facility] Address [address] [address] Care Team Providers Care Disability Liaison Officer Name Role Phone Kumar Toledo MD Primary Care Provider + [phone] Reason for Referral * Diagnostic Imaging (Routine) - Authorized Specialty Diagnoses / Procedures Referred By Karyna carroll Referred To Contact Diagnoses Shortness of breath Procedures Adult Transthoracic Echo Complete W/ Cont if Necessary Per Protocol Joann Hubbard APRN [address] [place] [address] Phone: tel: fax: [address] [place] [address] Phone: tel: Referral ID Status Reason Start Date Expiration Date V isits Requested Visits Authorized Authorized 06/24/2025 09/23/2026 1 1 * MRI/CAT/PET Scan (Routine) - Closed Specialty Diagnoses / Procedures [facility] By [facility] Referred To Contact Radiology Diagnoses Ischemic heart disease Shortness of breath Procedures CT Angiogram Chest Joann Hubbard APRN [address] [place] [address] Phone: tel: fax: [facility] [address] [place] [address] Phone: tel: Referral ID Status Reason Start Date Expiration Date Visits Re quested Visits Authorized [id number] Closed 06/24/2025 09/23/2026 1 1 Reason for Visit * Reason Comments Ischemic heart disease Coronary Artery Disease F/u Encounter Details Date Type Department Care Team (Late st Contact Info) Description 06/24/2025 1:20 PM EDT Office Visit [facility] [address] [facility] [address] [place] [address] Joann Hubbard APRN [address] [facility] [address] [place] [address] Ischemic heart disease (Primary Dx); Essential hypertension; Dyslipidemia; Shortness of breath Social History Tobacco Use Types Packs/Day Years Used Date Smoking Tobacco: Former Cigarettes Q uit: 12/27/2008 Cigars Quit: 12/2008 Smokeless Tobacco: Never Tobacco Cessation:Counseling Given: Not Answered Alcohol Use Standard Drinks/Week Comments No 0 (1 standard drink = 0.6 oz pur e alcohol) AUDIT-C Answer Date Recorded Q1: How often do you have a drink containing alcohol? Never 06/20/2024 Q2: How many drinks containi ng alcohol do you have on a typical day when you are drinking? Patient does not drink Frequency of Binge Drinking Not on file 05/27 Abuse Screen Answer Date Recorded Feels Unsafe at Home or Work/School no 06/20/2024 Feels Threatened by Someone no 05/27 Does Anyone Try to Keep You From Having Contact with Others or Doing Things Outside Your Home? no 06/20/2024 Physical Signs of Abuse Present no 06/20/2024 Housing Stability Answer Date Recorded Current Living Arrangements home 05/27 Potentially Unsafe Housing Conditions Not on shashi e 06/20/2024 Disabilities Answer Date Recorded Difficulty Concentrating, Remembering or Making Decisions no 06/20/2024 Difficulty Managing Errands Independently no 06/20/2024 Sex and Gender Information Value Date Recorded Sex Assigned at Not on file Legal Sex Male 11:15 AM EDT Gender Identity Not on file Sexual Orientation Not on file documented as of this encounter Last Filed Vital Signs Vital Sign Reading Time Taken Comments Blood Pressure 130/60 06/24/2025 1:36 PM EDT Pulse 72 06/24/2025 1:08 PM EDT Temperature - - Respiratory Rate - - Oxygen Saturation 99% 06/24/2025 1:08 PM EDT Inhaled Oxygen Concentration - - Weight 104 kg (228 lb 6.4 oz) 06/24/2025 1:07 PM EDT Height 177.8 cm (5' 10 ) 06/24/2025 1:07 PM EDT Body Mass Index 32.77 06/24/2025 1:07 PM EDT documented in this encounter Progress Notes * Haydee Joann L, RECIPROCATING DRILL OPERATOR - 06/24/2025 1:20 PM EDT Subjective: Encounter Date:06/24/2025 Patient ID: Favio Oleary is a 74 y.o. 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 Chief Complaint: Chief Complaint Patient presents with Ischemic heart disease Coronary Artery Disease F/u Problem List: Ischemic heart disease: Remote CCS class II to III symptoms of chest pain/exertional dyspnea and acceptable EKG/chest x-ray/24-hour Holter monitor/echocardiographic GXT, 2005. Recurrent atypical chest pain syndrome with moderate 2-vessel obstructive coronary disease with angioplasty and stent deployment to the LAD with subsequent staged angioplasty and stent deployment to the nondominant left circumflex coronary artery, June 2007. Acceptable quantitative SPECT gated Cardiolite GXT, LVEF 0.64, September 2010, with residual class Isymptoms. Acceptable echocardiographic GXT (104% predicted exercise), March 2013, with residual class I symptoms. Acceptable limited Cardiolite GXT with acceptable LVEF following exercise to 87% predicted maximal heart rate and only 68% predicted exercise capacity (March 2017) with residual class I symptoms. Left heart catheterization 11/14/17: Normal LV function, single vessel coronary artery disease characterized by very high degree in-stent restenotic lesion involving the mid LAD and origin of the major diagonal artery. This is treated with drug-eluting stents using an S KS or Culotte technique. 2.5??15 mm Xience Alpine stent in the major diagonal artery and a 3??15 mm Xience Alpine stent in the LAD. Kissing noncompliant balloons 2.5??12 mm in the diagonal and 3??12 mm the LAD [facility] ED 04/11/2022 for right-sided chest vibrations, fatigue, generalized weakness Residual class I symptoms, June 2021, December 2021, CCS class I chest discomfort/NYHA class I-IIfatigue symptoms June 2022 Exercise stress test 08/24/2022: 4.6 METS, fair functional capacity, EF 77%, normal myocardial perfusion study with no evidence of ischemia, dense calcification or stent to the LAD with less calcification, stent in the left circumflex. No significant calcium seen in the RCA Echocardiogram 11/13/2022:LVEF 55% with no regional wall motion abnormality, grade 1 diastolic dysfunction, RA and RV mildly enlarged with normal contractility, mild AI, aortic valve minimally thickened and calcified without aortic stenosis, mild MR, mild TR Normal ECG June 2023 Echocardiogram 05/01/2024: LVEF 55%, increased LV wall thickness, mildly dilated RV, no significant valvular stenosis or regurgitation Left heart catheterization 06/20/2024: 20-30% LAD ISR. Patent left circumflex stent, otherwise no angiographic atherosclerosis CCS class I chest discomfort/NYHA class II dyspnea on exertion symptoms May 2025 Intermittent palpitations with MCOT September 2022 showing SR with HR 50-112, PACs and PVCs but no atrial arrhythmias, SVT, VT, or heart block. Dyslipidemia. Mild glucose intolerance/pre-diabetes; hemoglobin A1c 6.2%, February 2018; 5.5%, August 2018, 6.3% March 2023, 6.1% May 2025 Severe obstructive sleep apnea with CPAP therapy. Chronic tobacco use, discontinued December 2008. Remote left hand metacarpal fracture/nonoperative repair, . Remote apparent EGD with esophageal polyp removal and gastric biopsy--data deficit, 1989. Remote right inguinal herniorrhaphy, 2005. Remote apparent colonoscopy with colon polypectomy--data deficit, 2005. Transient abnormal liver function tests of uncertain etiology with negative hepatitis profile and subsequently documented normal studies, summer 2005. Remote colonoscopy with apparent polypectomy and rectal fissures with severe obstipation/constipation and marked weight loss, late 2005. Remote ???inner ear disturbance?? with severe vertigo and syncope with ED evaluation - data deficit, July 2008. Chronic elevation of CPK of uncertain etiology with rheumatology evaluation initiated, July 2009, with recurrent apparent assessment - data deficit, , 2009. Mild obesity (BMI 32.77). Prostate cancer with bilateral radioactive seed implant 10/30/2016 Recent bilateral toe numbness and heavy legs during ambulation with acceptable rest SAGAR (summer 2018), acceptable SAGAR summer 2021-data deficit Hematuria September 2019 with urinary tract infection 2-day admission at for partial carotid dissection. This was felt to be related to uncontrolled hypertension. 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 October 2022 Breakthrough Covid December 2021 Prediabetes; hemoglobin A1c 6.4% March 2022, 6.3% March 2023, 6.2% December 2023, 6% August 2024, 6.1%May 2025 7 mm LLL pulmonary nodule Bilateral simple renal cysts No Known Allergies Current Outpatient Medications Medication Instructions albuterol sulfate HFA 108 (90 Base) MCG/ACT inhaler 2 puffs, Inhalation, Every 4 Hours PRN amLODIPine (NORVASC) 5 MG tablet TAKE 1 TABLET EVERY DAY ASPIRIN 81 PO 1 tablet, Daily atorvastatin (LIPITOR) 80 mg, Nightly Blood Glucose Calibration (True Metrix Level 1) Low solution No dose, route, or frequency recorded. Blood Glucose Monitoring Suppl (True Metrix Meter) w/Device kit No dose, route, or frequency recorded. carvedilol (COREG) 25 MG tablet TAKE 1 TABLET TWICE DAILY WITH MEALS clopidogrel (PLAVIX) 75 mg, Oral, Daily fenofibrate (TRICOR) 145 mg, Oral, Daily lactulose (CHRONULAC) 20 g, Every Other Day losartan (COZAAR) 50 mg, Oral, Daily metFORMIN ER (GLUCOPHAGE-XR) 500 mg, Daily With Breakfast Multiple Vitamin (MULTI VITAMIN PO) 1 tablet, Daily nitroglycerin (NITROSTAT) 0.4 MG SL tablet DISSOLVE 1 TABLET UNDER TONGUE EVERY 5 MINUTES NEEDEDFOR CHEST PAIN. TAKE NO MORE THAN 3 DOSES IN 15 MINUTES. NON FORMULARY CPAP Machine at night tamsulosin (FLOMAX) 0.4 MG capsule 24 hr capsule TAKE 1 CAPSULE EVERY NIGHT (PLEASE REQUEST FUTURE REFILLS FROM PCP) torsemide (DEMADEX) 5 MG tablet TAKE 1 TABLET EVERY DAY NEEDED (SWELLING AND/OR SHORTNESS OF BREATH) True Metrix Blood Glucose Test test strip No dose, route, or frequency recorded. TRUEplus Lancets 33G misc No dose, route, or frequency recorded. HISTORY OF PRESENT ILLNESS: The patient is here for a 6-month follow-up. He had a left heart catheterization May 2024 showing 20-30% LAD ISR. Patent left circumflex stent, otherwise no angiographic atherosclerosis. Echocardiogram April 2024 showed LVEF 55%, increased LV wall thickness, mildly dilated RV, no significant valvular stenosis or regurgitation. Patient denies any recurrent chest pain. His main complaint is of shortness of breath. He says that it does not make sense to him because he can walk on the treadmill forabout 20 minutes without difficulties but when he walked into this appointment today from the parking garage he had shortness of breath and felt like he needed to stop. He denies any palpitations, presyncope, or syncope. Occasionally he will notice on his blood pressure monitor that it will say irregular but this is rare. His blood pressure readings have been in the 120s-130s over 60s-70s. He feels like he has some fatigue. He denies any lower extremity edema, orthopnea, recent illness, or fevers. He just had blood work which was acceptable. He is compliant with CPAP nightly and says that he cannot sleep without it. He had pulmonary function tests remotely and said that at first the inhaler worked but then it did not. Patient stopped smoking a long time ago. 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 He feels like being exposed to all the fumes has probably contributed to his shortness of breath symptoms. He checks his oxygen at home and it will range between 92-94%a majority of the time. On his last CT chest he was noted to have a 7 mm pulmonary nodule. ROS All other systems reviewed and otherwise negative. Procedures Objective: Vitals: 06/24/25 1307 06/24/25 1308 06/24/25 1336 BP: 143/84 158/88 130/60 BP Location: Right arm Right arm Right arm Patient Position: Sitting Standing Sitting Cuff Size: Adult Adult Pulse: 69 72 SpO2: 99% 99% Weight: 104 kg (228 lb 6.4 oz) Height: 177.8 cm (70 ) Body mass index is 32.77 kg/m??. Wt Readings from Last 2 Encounters: 06/24/25 104 kg (228 lb 6.4 oz) 12/24/24 106 kg (234 lb 6.4 oz) Constitutional: Appearance: Healthy appearance. Not in distress. Neck: Vascular: No JVR. JVD normal. Pulmonary: Effort: Pulmonary effort is normal. Breath sounds: Decreased breath sounds present. No wheezing. No rhonchi. No rales. Chest: Chest wall: Not tender to palpatation. Cardiovascular: PMI at left midclavicular line. Normal rate. Regular rhythm. Normal S1. Normal S2. Murmurs: There is a grade 1/6 systolic murmur at the LLSB. No gallop. No click. No rub. Pulses: Intact distal pulses. Edema: Peripheral edema absent. Abdominal: General: Bowel sounds are normal. Palpations: Abdomen is soft. Tenderness: There is no abdominal tenderness. Musculoskeletal: Normal range of motion. General: No tenderness. Skin: General: Skin is warm and dry. Neurological: General: No focal deficit present. Mental Status: Alert and oriented to person, place and time. Lab Review: Lab Results Component Value Date GLUCOSE 114 (H) 06/20/2024 BUN 11 06/20/2024 CREATININE 1.05 06/20/2024 EGFRIFNONA 77 10/06/2019 BCR 10.5 06/20/2024 CO2 26.0 06/20/2024 CALCIUM 9.5 06/20/2024 ALBUMIN 4.4 06/04/2024 AST 21 06/04/2024 ALT 23 06/04/2024 Lab Results Component Value Date WBC 6.75 06/20/2024 HGB 13.1 06/20/2024 HCT 39.3 06/20/2024 MCV 89.7 06/20/2024 PLT 253 06/20/2024 Lab Results Component Value Date TSH 1.410 04/11/2022 Lab Results Component Value Date BNP 16.0 11/14/2017 08/29/2024: CMP: Sodium 140, protein 6.8, GFR 83, glucose 145, albumin 4.5, alkaline phosphatase 75, ALT 19, AST 22, bilirubin 0.4, BUN 14, calcium 9.8, chloride 105, carbon dioxide 27, creatinine 0.96, glucose 110, potassium 4.8 Hemoglobin A1c 6% TSH 2.22 Lipid panel: Cholesterol 139, triglycerides 107, HDL 37, LDL 81 06/05/2025: Hemoglobin A1c 6.1% Lipid panel: Cholesterol 150, HDL 37, LDL 81, triglycerides 162 TSH 2.05 05/13/2025: Vitamin D-34 CBC: WBC 7.7, lymphocytes 17.8, granulocytes 76.4,mxd 5.8, hemoglobin 12.8, hematocrit 38.4, MCV 88.9, MCH 29.6, MCHC 33.3, platelets 272 CMP: Albumin 4.3, alkaline phosphatase 73, ALT 19, AST 18, bilirubin 0.4, BUN 16, calcium 9.4, chloride 109, carbon dioxide 24, creatinine 0.98, potassium 4.3, sodium 142, protein 6.5, GFR 81, magnesium 2 Vitamin B12-440 02/10/2025: BMP: BUN 20, calcium 10.1, chloride 104, carbon dioxide 29, creatinine 1.07, glucose 114, potassium4.7, sodium 142, GFR 73 Results for orders placed during the hospital encounter of 08/25/16 Doppler Ankle Brachial Index Multi Level CAR 08/25/2016 5:15 PM Interpretation Summary ?? The right SAGAR is normal. The test is negative for exercise induced claudication. ?? The left SAGAR is normal. The test is negative for exercise induced claudication. Advance Care Planning ACP discussion was held with the patient during this visit. Patient has an advance directive (not in EMR), copy requested. Assessment: Patient had a left heart catheterization May 2024 showing 20-30% LAD ISR. Patent left circumflex stent, otherwise no angiographic atherosclerosis. Echocardiogram April 2024 showed LVEF 55%, increasedLV wall thickness, mildly dilated RV, no significant valvular stenosis or regurgitation. Patient has had some shortness of breath and is exposed to fumes at the body shop. He also has a 7 mm pulmonary nodule and I will refer him to pulmonology. I will order labs to rule out heart failure or DVT/PEs, order a CTA chest, and an echocardiogram to assess heart structure/function. If all tests are benign will plan on repeat cardiac PET +/- Holter monitor. Diagnosis Plan 1. Ischemic heart disease CTA chest, echocardiogram, labs 2. Essential hypertension Controlled, continue current cardiac medications 3. Dyslipidemia Acceptable lipid panel May 2025, continue fenofibrate, atorvastatin 4. Shortness of breath: Labs, CTA chest, echocardiogram, referral to pulmonology, If all tests are benign we will plan on repeat cardiac PET +/- Holter monitor. Plan: Patient to continue current medications and close follow up with the above providers. Tentative cardiology follow up in September 2025 or patient may return sooner PRN. CTA chest Echocardiogram proBNP, d dimer Referral to pulmonology for pulmonary nodule, SOB If all tests are benign will plan on repeat cardiac PET +/- Holter monitor. Electronically signed by Joann Hubbard APRN, 06/24/25, 1:46 PM EDT. documented in this encounter Plan of Treatment Upcoming Encounters Date Type Department Care Team (Late st Contact Info) Description 10/30/2025 10:20 AM EST Office Visit [facility] [address] [facility] [address] [place] [address] Joann Hubbard APRN [address] [facility] [address] [place] [address] Scheduled Orders Name Type Priority Associated Diagnoses Order Schedule CT Angiogram Chest Imaging Routine Ischemic heart disease Shortness of breath Ordered: 06/24/2025 Adult Transthoracic Echo Complete W/ Cont if Necessary Per Protocol Echocardiography Routine Shortness of breath Ordered: 06/24/2025 proBNP Lab Routine Shortness of breath Expected: 06/29/2025 (Approximate), Expires: 09/24/2026 D-dimer, Quantitative Lab Routine Shortness of breath Expected: 06/29/2025 (Approximate), Expires: 09/24/2026 Scheduled Procedures Name Priority Associated Diagnoses Date/Ti me CORONARY ANGIOGRAPHY Unstable angina documented as of this encounter Visit Diagnoses Diagnosis Ischemic heart disease- Primary Other specified forms of chronic ischemic heart disease Essential hypertension Unspecified essential hypertension Dyslipidemia Other and unspecified hyperlipidemia Shortness of breath documented in this encounter Care Teams Disability Liaison Officer Relationship Specialty Start Date End Date Kumar Toledo MD [address] [facility] [address] [facility] [address] [place] [address] PCP - General Family Medicine 07/06/22 documented as of this encounter
--- NOTE | 2025-07-06 | CA_ITS ---
APPROVED REPORT EXAM: Comprehensive 2D, Doppler, and color-flow Echocardiogram Drag Out Man: Celeste Hill CRT Ht: 5 ft 10 in Wt: 228lbs BSA: 2.21 BP: 130/68 mmHg Indications: Shortness of Breath, CAD, Hypertension/HDD, CABG 2D Dimensions LA Volume 55.40 mL LA Volume Index 24.50 mL/m2 (M/F) 16-34 M-Mode Dimensions LA Diam 3.25 cm (1.9-4.0) LV Diastology E Decel Time 193 (160-240 msec) E/A Ratio 0.94 MED A' 16.10 cm/s LAT A' 13.20 cm/s Aortic Valve AI PHT 512.00 ms AO Peak GR. 5.20 mmHg Mitral Valve MV E Max Josh. 82.0 (40-130 cm/s) MV A Velocity 87.0 (40-130 cm/s) E/A Ratio 0.94 MV PHT 57.0 ms Pulmonary Valve PV Peak Velocity 113.0 (50-150 cm/s) Tricuspid Valve TR P. Velocity 255.00 cm/s RAP Estimate 10.00 mmHg RVSP 36.00 mmHg Left Ventricle The left ventricle is normal size. Left ventricular systolic function is normal. The left ventricular ejection fraction is within the normal range. There is increased left ventricular wall thickness. There is normal LV segmental wall motion. The left ventricular diastolic function is normal. LVEF is 55% Right Ventricle The right ventricle is normal size. The right ventricular systolic function is normal. Atria The left atrium size is normal. The right atrium size is normal. There is no color Doppler evidence of interatrial shunt. Aortic Valve The aortic valve is mildly thickened. There is no hemodynamically significant aortic valvular stenosis. Mild aortic regurgitation is present. Mitral Valve The mitral valve is normal in structure. No evidence of mitral valve stenosis. Mild mitral regurgitation is present. Tricuspid Valve The tricuspid valve leaflets are thin and pliable. Mild tricuspid regurgitation. RVSP is 20-25 mmHg. Pulmonic Valve The pulmonary valve is grossly normal in structure. Trace pulmonic valve regurgitation is present. Great Vessels The aortic root is normal in size. IVC is normal in size and collapses >50% with inspiration. Pericardium There is no pericardial effusion. Other Information Study Quality: Fair Conclusion Normal biventricular systolic function. Mild AI, mild MR, mild TR. Electronically signed by : Yoli Rivero MD 07/06/2025 16:40:45
--- OUTSIDE RECORDS SUMMARY | 2025-07-06 14:29 | XMS_ITS | Clinical Summary ---
Author Organization [facility] Address [address] [place] [address] Care Team Providers Care Manager Analytical Name Role Phone Balaji Perales MD Primary Care Provider [phone] Allergies No known active allergies Medications No known medications Family History Medical History Relation Name Comments Heart Problem Mother Relation Name Status Comments Mother Social History Tobacco Use Types Packs/Day Years Used Date Smoking Tobacco: Never Alcohol Use Standard Drinks/Week Comments No 0 (1 standard drink = 0.6 oz pur e alcohol) Sex and Gender Information Value Date Recorded Sex Assigned at Not on file Legal Sex Male 6:57 PM EDT Gender Identity Not on file Sexual Orientation Not on file Last Filed Vital Signs Vital Sign Reading Time Taken Comments Blood Pressure 138/90 02/03/2021 3:13 PM EST Pulse 79 02/03/2021 3:13 PM EST Temperature - - Respiratory Rate - - Oxygen Saturation - - Inhaled Oxygen Concentration - - Weight 103 kg (225 lb 15.9 oz) 02/03/2021 3:13 P M EST Height 177.8 cm (5' 10 ) 02/03/2021 3:13 PM EST Body Mass Index 32.43 02/03/2021 3:13 PM EST Plan of Treatment Health Maintenance Due Date Last Done Comments [facility]-Depression Screening 1950 [facility]-Infant/Child/Adol SDOH Screenings 1950 [facility]- SDOH Screenings 1969 [facility]-Adult SDOH Screenings 1969 CT Colonography 1996 Colonoscopy 1996 FIT-DNA 1996 FIT 1996 FOBT 1996 Sigmoidoscopy 1996 [facility]-Colorectal Cancer Screening 1996 [facility]-Pneumococcal Vaccine: 50 + Years (1 of 1 - PCV) 2001 [facility]-Zoster Vaccines (1 of 2) 2001 [facility]-DTaP,Tdap,and Td Vaccine s (1 - Tdap) 10/14/2019 10/13/2019 [id number] Vaccine (3 - season) 2024 03/02/2021, 02/02/2021 [facility]-Influenza Vaccine (#1) 2025 [facility]-RSV Vaccine: 60+ Years o r (1 - 1-dose 75+ series) 2026 [facility]-Diabetes: Hemoglobin A1C Discontinued 10/27/2020 HPV Vaccines Aged Out No longer eligi ble based on patient's age to complete this topic [facility]-HIB Vaccines Aged Out No longer e ligible based on patient's age to complete this topic [facility]-Hepatitis A Vaccines Aged Out No longer eligible based on patient's age to complete this topic [facility]-IPV Vaccines Aged Out No longer e ligible based on patient's age to complete this topic [facility]-Rotavirus Vaccines Aged Out No lo nger eligible based on patient's age to complete this topic Procedures Procedure Name Priority Date/Time Associated Diagnosis Comments HEMOGLOBIN A1C STAT 10/27/2020 7:15 AM EST from Last 3 Months or Most Recently Relevant to Health Maintenance Results * (ABNORMAL) Hemoglobin A1c (10/27/2020 7:15 AM EST) Hemoglobin A1c 6.1(H) 4.7 - 6.0 % [facility] Comment: Glycohemoglobin Reference Range, 0 years and up: 4.7 to 6.0% . HA1C Interpretive Data: Diagnosis of Diabetes: Diabetic > or = 6.5% Pre-diabetic 5.7 to 6.4% Non-diabetic < or = 5.6% . Glycemic Targets for Type I and Type II Diabetics: Non- Adults <7.0% Adults <6.0% Children and Adolescents <7.5% . Source: [place] [employer]. Standards of medical care in diabetes, 2017. Diabetes Care.2017:40 (suppl 1):S1-S135. . HbA1c assay performed by an ion-exchange chromatography method that is certified traceable to the DCCT. 10/27/2020 7:15 AM EST 10/27/2020 7:21 AM EST Nickvasquez Becker Michael MBBS LAB BLOOD ORDERABLES Tania l Result [facility]QUEST from Last 3 Months or Most Recently Relevant to Health Maintenance Insurance MEDICARE [employer] Care Teams Manager Analytical Relationship Specialty Start Date End Date Balaji Perales MD [address] [place], [place] [address] [address] PCP - General 04/08/21
--- OUTSIDE RECORDS SUMMARY | 2025-07-06 14:29 | XMS_ITS | Encounter Summary ---
[facility] Address [address] [place] [address] Care Team Providers Care V Block Saw Operator Name Role Phone Kumar Toledo MD Primary Care Provider + [phone] Reason for Visit * Reason Onset Date Comments Med Refill 06/01/2025 Encounter Details Date Type Department Care Team (Late st Contact Info) Description 06/01/2025 Refill [facility] [address] [facility] [address] [place] [address] Joann Hubbard, PAPER TESTING SUPERVISOR [address] [facility] [address] [place] [address] Med Refill Social History Tobacco Use Types Packs/Day Years Used Date Smoking Tobacco: Former Cigars Q uit: 12/2008 Smokeless Tobacco: Never Alcohol Use Standard Drinks/Week Comments [...] on file documented as of this encounter Plan of Treatment Upcoming Encounters Date Type Department Care Team (Late st Contact Info) Description 10/30/2025 10:20 AM EST Office Visit [facility] [address] [place] [address] Joann Hubbard, PAPER TESTING SUPERVISOR [address] [facility] [address] [place] [address] Scheduled Procedures Name Priority Associated Diagnoses Date/Ti me CORONARY ANGIOGRAPHY Unstable angina documented as of this encounter Visit Diagnoses Not on filedocumented in this encounter Care Teams V Block Saw Operator Relationship Specialty Start Date End Date Kumar Toledo MD [address] [facility] [address] [place] [address] PCP - General Family Medicine 07/06/22 documented as of this encounter
--- OUTSIDE RECORDS SUMMARY | 2025-07-06 14:29 | XMS_ITS | Encounter Summary ---
[facility] Address [address] [place] [address] Care Team Providers Care Flare Man Name Role Phone Kumar Toledo MD Primary Care Provider + [phone] Reason for Visit * Reason Onset Date Comments Med Refill 06/15/2025 Encounter Details Date Type Department Care Team (Late st Contact Info) Description 06/15/[address] [facility]OLOG[facility] [address] [facility] [address] [place] [address] Joann Hubbard, ARTIFICIAL MARBLE WORKER [address] [facility] [address] [place] [address] Med Refill Social History Tobacco Use Types [...] Description 10/30/2025 10:20 AM EST Office Visit [facility] [address] [place] [address] Joann Hubbard, ARTIFICIAL MARBLE WORKER [address] [facility] [address] [place] [address] Scheduled Procedures Name Priority Associated Diagnoses Date/Ti me CORONARY ANGIOGRAPHY Unstable angina documented as of this encounter Visit Diagnoses Not on filedocumented in this encounter Care Teams Flare Man Relationship Specialty Start Date End Date Kumar Toledo MD [address] [facility] [address] [place] [address] PCP - General Family Medicine 07/06/22 documented as of this encounter
--- OUTSIDE RECORDS SUMMARY | 2025-07-06 14:29 | XMS_ITS | Encounter Summary ---
[facility] Address [address] [place] [address] Care Team Providers Care Plate Glass Installer Helper Name Role Phone Kumar Toledo MD Primary Care Provider + [phone] Reason for Visit * Reason Comments Med Refill Encounter Details Date Type Department Care Team (Late st Contact Info) Description 05/28/2025 Refill [facility] [address] [facility] [address] [place] [address] Joann Hubbard, AGRICULTURAL EQUIPMENT SALESPERSON [address] [facility] [address] [place] [address] Med Refill Social History Tobacco Use Types [...] Description 10/30/2025 10:20 AM EST Office Visit [facility] [address] [place] [address] Joann Hubbard, AGRICULTURAL EQUIPMENT SALESPERSON [address] [facility] [address] [place] [address] Scheduled Procedures Name Priority Associated Diagnoses Date/Ti me CORONARY ANGIOGRAPHY Unstable angina documented as of this encounter Visit Diagnoses Not on filedocumented in this encounter Care Teams Plate Glass Installer Helper Relationship Specialty Start Date End Date Kumar Toledo MD [address] [facility] [address] [place] [address] PCP - General Family Medicine 07/06/22 documented as of this encounter
--- OUTSIDE RECORDS SUMMARY | 2025-07-06 14:29 | XMS_ITS | Patient Health Record ---
[facility] Address [address] [facility] [address] [place] [id number] Care Team Providers Care Scale Tank Operator Name Role Phone Cb Toledoian Primary Care Provider Rodney Ortez Unavailable [phone] Allergies No Known Allergies Results Component Value Reference Range Notes Glucose (In-House) Reviewed date:09/01/2024 10:26:47 AM Interpretation:145 Performing Lab: Notes/Report: 145 blood glucose 145 74 - 106 mg/dL Glycohemoglobin A1c (in hous e) Reviewed date:09/01/2024 10:26:47 AM Interpretation:6 Performing Lab: Notes/Report: 6 glycohemoglobin 6.0% 5 - 6.5 % P-Comprehensive Metabolic Pa jhon (CMP) Reviewed date:09/01/2024 10:26:47 AM Interpretation:gluc 110 Performing Lab: Notes/Report: Test performed by [facility], [employer] [facility] , [address], [place] [address] Giovani Sanz MD, Hospital Director CLIA: [id number] Sodium 140 135-145 mmol/L Potassium 4.8 3.5-5.3 mmol/L Chloride 105 97-108 mmol/L CO2 27 22-32 mmol/L Glucose 110 65-99 mg/dL BUN 14 8-23 mg/dL Creatinine 0.96 0.70-1.30 mg/dL Calcium 9.8 8.6-10.4 mg/dL eGFR by Creatinine 83 >59 mL/min/1.73m2 Protein 6.8 6.0-8.3 g/dL Albumin 4.5 3.5-5.3 g/dL Alkaline Phosphatase 75 40-129 IU/L ALT (SGPT) 19 <5-55 IU/L AST (SGOT) 22 <5-46 IU/L Bilirubin, Total 0.4 <0.2-1.2 mg/dL A/G Ratio 2.0 1.1-2.5 P-Lipid Panel Reviewed date:09/01/2024 10:26:47 AM Interpretation:hdl 37 Performing Lab: Notes/Report: Test performed by [facility], [address] , [place] [address] Giovani Sanz MD, Hospital Director CLIA: [id number] Cholesterol 139 <200 mg/dL Triglycerides 107 <150 mg/dL HDL Cholesterol 37 >39 mg/dL Cholesterol / HDL Ratio 3.76 0.00-4.99 Ratio Non-HDL Cholesterol 102 <130 mg/dL LDL Cholesterol (Calculation) 81 <130 [...] Results: 81 Units: mg/dL % Change: - P-TSH reflex to FT4 Reviewed date:09/01/2024 10:26:47 AM Interpretation:Normal Performing Lab: Notes/Report: Test performed by [facility] [address] , [address], [place] [address] Giovani Sanz MD, Hospital Director CLIA: [id number] TSH reflex to FT4 2.22 0.43-5.25 mU/L P-Microalbumin/Creatinine, R andom Urine Sample Reviewed date:09/01/2024 10:26:47 AM Interpretation:normal Performing Lab: Notes/Report: Test performed by [facility] [address] , [address], [place] [address] Giovani Sanz MD, Hospital Director CLIA: [id number] Albumin/Creatinine Ratio, Urine See Comment 0-30 ug/mg Unable to calculate Urine Albumin/Creatinine Ratio when urine creatinine or urine albumin fall outside established reportable range. Microalbumin, Urine, Random <0.3 Creatinine, Urine 61.9 X ray : heel,right Reviewed date:09/08/2024 10:11:24 AM Interpretation:degenerative changes Performing Lab: Notes/Report: degenerative changes P-Comprehensive Metabolic Pa jhon (CMP) Reviewed date:05/14/2025 09:04:29 AM Interpretation:cl 109, gluc 124 Performing Lab: Notes/Report: Test performed by [facility] [address] [place] [address] , [address], [place] [address] Giovani Sanz MD, Hospital Director CLIA: [id number] Sodium 142 135-145 mmol/L Potassium 4.3 3.5-5.3 [...] Interpretation:Normal Performing Lab: Notes/Report: Test performed by [facility] [address] [place] [address] , [place] [address] Giovani Sanz MD, Hospital Director CLIA: [id number] Magnesium 2.0 1.6-2.4 mg/dL P-Phosphorus Reviewed date:05/14/2025 09:04:29 AM Interpretation:Normal Performing Lab: Notes/Report: Test performed by [facility] [address] [place] [address] , [place] [address] Giovani Sanz MD, Hospital Director CLIA: [id number] Phosphorus 2.8 2.5-4.5 mg/dL P-Vitamin D 25-Hydroxy Reviewed date:05/14/2025 09:04:29 AM Interpretation:34 Performing Lab: Notes/Report: Test performed by [facility] [address] [place] [address] , [place] [address] Giovani Sanz MD, Hospital Director CLIA: [id number] Vitamin D 25-Hydroxy 34.0 30.0-100.0 ng/mL Interpretation of Vitamin D 25 [place]: < 20 ng/mL - Deficiency 20 - 29 ng/mL - Insufficiency 30 - 100 ng/mL - Sufficiency > 100 ng/mL - Super-therapeutic- toxicity may occur above this level. Clinical correlation required. P-Vitamin B12 Reviewed date:05/14/2025 09:04:29 AM Interpretation:Normal Performing Lab: Notes/Report: Test performed by [facility] [address] [place] [address] , [address], [place] [address] Giovani Sanz MD, Hospital Director CLIA: [id number] Vitamin B12 754 314-0797 pg/mL CBC Venipuncture (in house) Reviewed date:05/14/2025 09:04:29 [...] - 38 platlet 272 100 - 400 P-Basic Metabolic Panel (BMP ) Reviewed date:02/11/2025 12:32:53 PM Interpretation:gluc 114 Performing Lab: Notes/Report: Test performed by [facility] [address] [place] [address] , [address], [place] [address] Giovani Sanz MD, Hospital Director CLIA: [id number] Sodium 142 135-145 mmol/L Potassium 4.7 3.5-5.3 mmol/L Chloride 104 97-108 mmol/L CO2 29 22-32 mmol/L Glucose 114 65-99 mg/dL BUN 20 8-23 mg/dL Creatinine 1.07 0.70-1.30 mg/dL Calcium 10.1 8.6-10.4 mg/dL eGFR by Creatinine 73 >59 mL/min/1.73m2 Glycohemoglobin A1c (in hous e) Reviewed date:02/11/2025 12:32:53 PM Interpretation:6 Performing Lab: Notes/Report: 6 glycohemoglobin 6.0% 5 - 6.5 % Glucose (In-House) Reviewed date:02/11/2025 12:32:53 PM Interpretation:115 Performing Lab: Notes/Report: 115 blood glucose 115 74 - 106 mg/dL P-Microalbumin/Creatinine, R andom Urine Sample Reviewed date:06/09/2025 09:44:23 AM Interpretation:Normal Performing Lab: Notes/Report: Test performed by [facility] [address] [place] [address] , [address], [place] [address] Giovani Sanz MD, Hospital Director CLIA: [id number] Albumin/Creatinine Ratio, Urine 13 0-30 ug/mg Microalbumin, Urine, Random 1.3 Creatinine, Urine 104.0 P-TSH reflex to FT4 Reviewed date:06/09/2025 09:44:23 AM Interpretation:Normal Performing Lab: Notes/Report: Test performed by [facility] [address] [place] [address] , [place] [address] Giovani Sanz MD, Hospital Director CLIA: [id number] TSH reflex to FT4 2.05 0.43-5.25 mU/L P-Lipid Panel Reviewed date:06/09/2025 09:44:23 AM Interpretation:trigs 162, hdl 37 Performing Lab: Notes/Report: Test performed by [facility], [address] , [address], [place] [address] Giovani Sanz MD, Hospital Director CLIA: [id number] Cholesterol 150 <200 mg/dL Triglycerides 162 <150 [...] Results: 81 Units: mg/dL % Change: 0% Glycohemoglobin A1c (in hous e) Reviewed date:06/09/2025 09:44:23 AM Interpretation:6.1 Performing Lab: Notes/Report: 6.1 glycohemoglobin 6.1% 5 - 6.5 % Glucose (In-House) Reviewed date:06/09/2025 09:44:23 AM Interpretation:125 Performing Lab: Notes/Report: 125 blood glucose 125 74 - 106 mg/dL Reason For Referral Diagnosis 1 Pain of right heel ( M79.671) Referral Organization [facility] Referring Provider First Name Kumar Referring Provider Last Name Paris Referring Provider Speciality Family [facility] Referred Provider Marylin Zhao Referred Provider Specialty Podiatry General Notes Margaux Taylor 024 11:02:14 AM > faxed referral to [facility] Podiatry Referral Priority Routine Medications Medication SIG (Take, Route, Frequency, Duration) Notes Start Date End Date Status Multivitamin - 1 tab(s) orally once a day Active Meclizine HCl 25 MG 1 tablet as needed O rally every 8 hrs 06/16/2024 Active Tamsulosin HCl 0.4 MG 1 cap(s) orally on ce a day; Duration: 30 day(s) Active Torsemide 5 MG 1 tab(s) orally once a day as needed Active Metamucil Smooth Texture 58.6 % as [...] KIT, 1 EA - 05/17/2022 Acti ve Trelegy Ellipta 100-62.5-25 MCG/ACT 1 puff Inhalation Once a day 03/16/2025 Active BD Swab Single Use Regular 1 DIRECTED 2 Active Carvedilol 12.5 MG 1 tab(s) orally 2 ti mes a day Active Losartan Potassium 50 MG 1 tablet Orally Once a day Active metFORMIN HCl ER 500 MG 1 tab(s) orally once a day; Duration: 90 days Active Atorvastatin Calcium 80 MG 1 tab(s) oral ly once a day (at bedtime) Active Clopidogrel Bisulfate 75 MG 1 tab(s) ora lly once a day Active Lactulose 20 GM/30ML 15 milliliters Oral ly Once a day prn 02/22/2024 Active Immunizations Vaccine Route Administration Date Status Comme nts COVID 19 Pfizer Unknown 02/02/2021 Administered COVID 19 Pfizer Unknown 03/02/2021 Administered Fluzone High Dose (65yr and older) IM Intramuscular 09/01/2022 Administered Fluzone High Dose (65yr and older) IM Intramuscular 08/29/2024 Administered Prevnar (PCV20) IM Intramuscular 09/01/2022 Administered Problems Problem Type SNOMED Code ICD Code Onset Dates Problem Status W/U Status Risk Notes Problem Hypertension (48823144) HTN (hypertension) (I10) Active confirmed Problem BMI 30+ - obesity (729426104) BMI 32.0-32.9,adult (Z68.32) Active confirmed Problem Memory loss (71345411) Memory loss (R41.3) Active confirmed Problem Impaired fasting glucose (454371040) Impaired fasting glucose (R73.01) Active confirmed Problem Mixed hyperlipidemia (574859475) Mixed hyperlipidemia (E78.2) Active confirmed Problem Renal insufficiency (071065343) Renal insufficiency (N28.9) Active confirmed Problem COPD - Chronic obstructive pulmonary disease (32952459) Chronic obstructive pulmonary disease, unspecified COPD type (J44.9) Active confirmed Problem Atherosclerotic heart disease of [place] coronary artery without angina pectoris (238767562399222) Coronary artery disease involving [place] coronary artery of [place] heart without angina pectoris (I25.10) Active confirmed Problem Body mass index 30.00 to 34.99 (515731989904178) BMI 31.0-31.9,adult (Z68.31) Active confirmed Problem Obesity (451279067) Non morbid obesity (E66.9) Active confirmed Vital Signs Heart Rate 84 /min 06/05/2025 Blood pressure diastolic 74 mm Hg 06/05/2025 Height 70 in 06/05/2025 Blood pressure systolic 120 mm Hg 06/05/2025 Weight 222 lbs 06/05/2025 BMI 31.85 kg/m2 06/05/2025 Encounters Encounter Location Date Provider Diagnosis [facility] [address] [place] [id number] 08/18/2024 R Devon Pérez Laceration of left h and without foreign body, initial encounter S61.412A and Plantar fasciitis M72.2 [facility] [address] [place], [place] [id number] 08/29/2024 Kumar Squire HTN (hypertension) I 10 ; Mixed hyperlipidemia E78.2 ; Impaired fasting glucose R73.01 ; Chronic constipation K59.09 ; Pain of right heel M79.671 and Encounter for immunization Z23 [facility] [address] [place], [place] [id number] 09/16/2024 Kumar Squire Pain of right heel M79.671 and Excessive wax in left ear H61.22 [facility] [address] [place], [place] [id number] 10/15/2024 Kumar Squire HTN (hypertension) I 10 and Acute bilateral low back pain without sciatica M54.50 [facility] [address] [place], [place] [id number] 02/10/2025 Kumar Squire HTN (hypertension) I 10 ; Impaired fasting glucose R73.01 and Chronic constipation K59.09 [facility] [address] [place] [id number] 03/16/2025 Kumar Squire SOB (shortness of breath) R06.02 ; Chronic obstructive pulmonary disease, unspecified COPD type J44.9 and BMI 31.0-31.9,adult Z68.31 [facility] [address] [place], [place] [id number] 05/13/2025 Kumar Squire Fatigue, unspecified type R53.83 ; HTN (hypertension) I10 ; Renal insufficiency N28.9 ; Excessive wax in right ear H61.21 ; Mixed hyperlipidemia E78.2 ; Impaired fasting glucose R73.01 and BMI 32.0-32.9,adult Z68.32 [facility] [address] [place], [place] [id number] 06/05/2025 Kumar Squire Impaired fasting glu cose R73.01 ; Mixed hyperlipidemia E78.2 ; Coronary artery disease involving [place] coronary artery of [place] heart without angina pectoris I25.10 and HTN (hypertension) I10 [facility] [address] [place], [place] [id number] 09/01/2024 Kumar Squire [facility] [address] [place], [place] [id number] 10/15/2024 Kumar Squire [facility] [address] [place], [place] [id number] 12/26/2024 Kumar Squire Chronic constipation K59.09 [facility] [address] [place] [id number] 02/11/2025 Kumar Squire [facility] [address] [place], [place] [id number] 05/14/2025 Kumar Squire [facility] [address] [place] [id number] 05/19/2025 Kumar Squire [facility] [address] [place] [id number] 06/05/2025 Kumar Squire Chronic constipation K59.09 [facility] [address] [place] [id number] 06/09/2025 Kumar Squire [facility] [address] [place] [id number] 06/17/2025 Kumar Squire Impaired fasting glu cose R73.01 [facility] [address] [place] [id number] 06/23/2025 Kumar Squire Assessments Encounter Date Diagnosis (ICD Code) Assessment Notes Treatment Notes Treatment Clinical Notes Section Notes 08/18/2024 Plantar fasciitis (ICD-10 - M72.2) Recommend ice massage, stretching exercises, therapeutic shoe insoles 08/18/2024 Laceration of left hand without foreign body, initial encounter (ICD-10 - S61.412A) Wound care instructions given. 08/29/2024 HTN (hypertension) (ICD-10 - I10) 09/16/2024 Pain of right heel (ICD-10 - M79.671) 09/16/2024 Excessive wax in left ear (ICD-10 - H61.22) 10/15/2024 HTN (hypertension) (ICD-10 - I10) 10/15/2024 Acute bilateral low back pain without sciatica (ICD-10 - M54.50) 12/26/2024 Chronic constipation (ICD-10 - K59.09) 02/10/2025 HTN (hypertension) (ICD-10 - I10) 02/10/2025 Impaired fasting glucose (ICD-10 - R73.01) 08/29/2024 Mixed hyperlipidemia (ICD-10 - E78.2) 03/16/2025 SOB (shortness of breath) (ICD-10 - R06.02) 03/16/2025 Chronic obstructive pulmonary disease, unspecified COPD type (ICD-10 - J44.9) 05/13/2025 HTN (hypertension) (ICD-10 - I10) 05/13/2025 Fatigue, unspecified type (ICD-10 - R53.83) 06/05/2025 Impaired fasting glucose (ICD-10 - R73.01) 06/05/2025 Mixed hyperlipidemia (ICD-10 - E78.2) 06/05/2025 Chronic constipation (ICD-10 - K59.09) 06/17/2025 Impaired fasting glucose (ICD-10 - R73.01) 06/05/2025 Coronary artery disease involving [place] coronary artery of [place] heart without angina pectoris (ICD-10 - I25.10) 03/16/2025 BMI 31.0-31.9,adult (ICD-10 - Z68.31) 02/10/2025 Chronic constipation (ICD-10 - K59.09) 08/29/2024 Impaired fasting glucose (ICD-10 - R73.01) 05/13/2025 Renal insufficiency (ICD-10 - N28.9) 08/29/2024 Chronic constipation (ICD-10 - K59.09) 05/13/2025 Excessive wax in right ear (ICD-10 - H61.21) 06/05/2025 HTN (hypertension) (ICD-10 - I10) 05/13/2025 Mixed hyperlipidemia (ICD-10 - E78.2) 08/29/2024 Pain of right heel (ICD-10 - M79.671) 08/29/2024 Encounter for immunization (ICD-10 - Z23) 05/13/2025 Impaired fasting glucose (ICD-10 - R73.01) 05/13/2025 BMI 32.0-32.9,adult (ICD-10 - Z68.32) Plan Of Treatment Pending Test Test Name Order Date colonoscopy 02/13/2024 P-Comprehensive Metabolic Panel (CMP) P-Hemoglobin A1C 04/14/2024 P-Lipid Panel 04/14/2024 P-TSH reflex to FT4 04/14/2024 Next Appt Details Provider Name:Kumar Winn ry, 08/13/2025 09:15:00 AM, [address] [facility], [address], [place], [place], [id number], Insurance Providers Payer Name Payer Address Payer Phone Subscriber Number Group Number Insured Name Patient Relationship to Insured Coverage Start Date Coverage End Date MEDICARE PART B [address] [address] [place] [address] [phone] [id number] SHAWN HARTMAN Self - patient is the insured [employer] [address] [address] [place] [address] [id number] SHAWN HARTMAN Self - patient is the insured Medical (General) History Medical History History ICD Code Coronary Artery Disease, s/p LT Heart Ca th, Stents x 3, 2007 Hypertension Hyperlipidemia Impaired Fasting Glucose Renal Insufficiency Prostate Cancer Diverticulosis COPD, Abnormal PFT's 2022 Colon polyps sleep apnea Surgical History Surgery Date(Month/Year) Hernia Repair Stent Placement x3 2007 Colon Repair Prostate colonoscopy - 2023 Hospitalization History Reason Date(Month/Year) Stent Placement[facility] 2008 Dehydration, Dizziness- [facility] 04/24/2016
--- OUTSIDE RECORDS SUMMARY | 2025-07-06 14:29 | XMS_ITS | Encounter Summary ---
[facility] Address [address] [place] [address] Care Team Providers Care X Ray Examiner Of Aircraft Name Role Phone Kumar Toledo MD Primary Care Provider + [phone] Reason for Visit * Reason Comments Med Refill Encounter Details Date Type Department Care Team (Late st Contact Info) Description 05/28/2025 Refill [facility] [address] [facility] [address] [place] [address] Naif Calzada MD [address] [facility] [address] [place] [address] Med Refill Social History Tobacco Use Types [...] Description 10/30/2025 10:20 AM EST Office Visit [facility] [facility] [address] [place] [address] Joann Hubbard, IKE [address] [facility] [address] [place] [address] Scheduled Procedures Name Priority Associated Diagnoses Date/Ti me CORONARY ANGIOGRAPHY Unstable angina documented as of this encounter Visit Diagnoses Not on filedocumented in this encounter Care Teams X Ray Examiner Of Aircraft Relationship Specialty Start Date End Date Kumar Toledo MD [address] [facility] [address] [place] [address] PCP - General Family Medicine 07/06/22 documented as of this encounter
--- OUTSIDE RECORDS SUMMARY | 2025-07-06 14:29 | XMS_ITS ---
Author Organization [facility] Address [address] [place] [address] Care Team Providers Care Boilerhouse Mechanic Name Role Phone Kumar Toledo MD Primary Care Provider + [phone] Active Problems Problem Noted Date Diagnosed Date Anginal equivalent 06/16/2024 Shortness of breath 12/28/2023 Essential hypertension 04/05/2018 Unstable angina 11/14/2017 Obstructive sleep apnea syndrome 02/22/2017 Prostate cancer 09/21/2016 Cancer Staging:Clinical stage from 09/21/2016:Stage I(T1c, N0, M0, PSA: Less than 10, Martínez <= 6) - Signed by Deion Mendes MD on 09/22/2016 Chest pain Ischemic heart disease Overview (08/21/2016): a. Remote CCS class II to III symptoms of chest pain/exertional dyspnea and acceptable EKG/chest x-ray/24-hour Holter monitor/echocardiographic GXT, 2005. b. Recurrent atypical chest pain syndrome with moderate 2-vessel obstructive coronary disease with angioplasty and stent deployment to the LAD with subsequent staged angioplasty and stent deployment to the nondominant left circumflex coronary artery, June 2007. c. Acceptable quantitative SPECT gated Cardiolite GXT, LVEF 0.64, September 2010, with residual class I symptoms. d. Acceptable echocardiographic GXT (104% predicted exercise), March 2013, with residual class I symptoms. Intermittent palpitations Dyslipidemia Prediabetes Overview (08/21/2016): mild glucose intolerance COPD (chronic obstructive pulmonary disease) Overview (08/21/2016): intermittent CPAP Mild obesity Overview (08/21/2016): BMI 31.5 Current Treatment and Therapy Plans No current plan information found. Past Treatment and Therapy Plans No past plan information found. Lifetime Dose Tracking * Chemical Lifetime Dose Automatic Entry Manual Entr y Cumulative Air Kerma 3,423 mGy 0 mGy 3,423 m Gy
--- OUTSIDE RECORDS SUMMARY | 2025-07-06 14:29 | XMS_ITS | Encounter Summary ---
Author Organization [facility] Address [address] [place] [address] Care Team Providers Care Director Of Financial Reporting Name Role Phone Kumar Toledo MD Primary Care Provider + [phone] Encounter Details Date Type Department Care Team (Latest Contact Info) Description 06/24/2025 Travel Social History Tobacco Use Types Packs/Day Years Used Date Smoking Tobacco: Former Cigarettes Q uit: 12/27/2008 Cigars Quit: 12/2008 Smokeless Tobacco: Never Alcohol Use Standard [...] Description 10/30/2025 10:20 AM EST Office Visit [facility] CARDIOLOGY [address] [place] [address] Joann Hubbard, COSMETICS PRESSER [address] [facility] [address] [place] [address] Scheduled Procedures Name Priority Associated Diagnoses Date/Ti me CORONARY ANGIOGRAPHY Unstable angina documented as of this encounter Visit Diagnoses Not on filedocumented in this encounter Care Teams Director Of Financial Reporting Relationship Specialty Start Date End Date Kumar Toledo MD [address] [facility] [address] [place] [address] PCP - General Family Medicine 07/06/22 documented as of this encounter
--- OUTSIDE RECORDS SUMMARY | 2025-07-06 14:30 | XMS_ITS | Clinical Summary ---
Author Organization [facility] Address [address] [place] [address] Care Team Providers Care Ict Customer Support Officer Name Role Phone Kumar Toledo MD Primary Care Provider + [phone] Allergies No known active allergies Medications Multiple Vitamin (MULTI VITAMIN PO) Take 1 tablet by mouth Daily. Active ASPIRIN 81 PO Take 1 tablet by mouth Daily. Active NON FORMULARY CPAP Machine at night Active TRUEplus Lancets 33G misc 05/18/20 22 Active True Metrix Blood Glucose Test test strip 05/18/20 22 Active Blood Glucose Monitoring Suppl (True Metrix Meter) w/Device kit 05/18/20 22 Active Blood Glucose Calibration (True Metrix Level 1) Low solution 05/18/20 22 Active metFORMIN ER (GLUCOPHAGE-XR) 500 MG 24 hr tablet Take 1 tablet by mouth Daily With Breakfast. 04/13/20 23 Active nitroglycerin (NITROSTAT) 0.4 MG SL tablet DISSOLVE 1 TABLET UNDER TONGUE EVERY 5 MINUTES NEEDED FOR CHEST PAIN. TAKE NO MORE THAN 3 DOSES IN 15 MINUTES. 25 tablet 3 07/25/20 23 Active tamsulosin (FLOMAX) 0.4 MG capsule 24 hr capsule TAKE 1 CAPSULE EVERY NIGHT (PLEASE REQUEST FUTURE REFILLS FROM PCP) 30 capsule 3 01/07/20 24 Active Additional Information Patient taking differently: 1 capsule Oral Nightly, Reported on 06/24/2025 lactulose (CHRONULAC) 10 GM/15ML solution Take 30 mL by mouth Every Other Day. 06/02/20 24 Active amLODIPine (NORVASC) 5 MG tablet TAKE 1 TABLET EVERY DAY 90 tablet 3 12/31/19 25 Active carvedilol (COREG) 25 MG tablet TAKE 1 TABLET TWICE DAILY WITH MEALS 180 tablet 3 12/31/19 25 Active clopidogrel (PLAVIX) 75 MG tablet TAKE 1 TABLET EVERY DAY 90 tablet 3 03/16/20 25 Active fenofibrate (TRICOR) 145 MG tablet TAKE 1 TABLET BY MOUTH ONCE DAILY 30 tablet 6 04/16/20 25 Active atorvastatin (LIPITOR) 80 MG tablet TAKE 1 TABLET EVERY NIGHT 90 tablet 3 05/28/20 25 Active torsemide (DEMADEX) 5 MG tablet TAKE 1 TABLET EVERY DAY NEEDED (SWELLING AND/OR SHORTNESS OF BREATH) 90 tablet 3 05/28/20 25 Active losartan (COZAAR) 50 MG tablet Take 1 tablet by mouth Daily. 90 tablet 2 06/15/20 25 Active albuterol sulfate HFA 108 (90 Base) MCG/ACT inhaler Inhale 2 puffs Every 4 (Four) Hours As Needed for Wheezing. 6.7 g 12/28/19 24 025 Discontinu ed(Discont inued by another clinician) losartan (COZAAR) 50 MG tablet TAKE 1 TABLET BY MOUTH ONCE DAILY 90 tablet 2 01/19/20 25 025 Discontinu ed(Reorder ) Active Problems Problem Noted Date Diagnosed Date Anginal equivalent 06/16/2024 Shortness of breath 12/28/2023 Essential hypertension 04/05/2018 Unstable angina 11/14/2017 Obstructive sleep apnea syndrome 02/22/2017 Prostate cancer 09/21/2016 Cancer Staging:Clinical stage from 09/21/2016:Stage I(T1c, N0, M0, PSA: Less than 10, [place] <= 6) - Signed by Deion Mendes [...] CPAP Mild obesity Overview (08/21/2016): BMI 31.5 Encounters Date Type Department Care Team Description 06/24/2025 1:20 PM EDT Office Visit [facility] [address] [facility] [address] [place] [phone] Joann Hubbard, CHANGE CONTROL ANALYST Ischemic heart disease (Primary Dx); Essential hypertension; Dyslipidemia; Shortness of breath 06/24/2025 Travel 06/15/2025 Refill [facility] [address] [facility] [address] [place] [phone] Joann Hubbard, CHANGE CONTROL ANALYST Med Refill 06/01/2025 Refill [facility] [address] [facility] [address] [place] [phone] Joann Hubbard, CHANGE CONTROL ANALYST Med Refill 05/28/2025 Refill [facility] [address] [facility] [address] [place] [phone] Joann Hubbard, CHANGE CONTROL ANALYST Med Refill 05/28/2025 Refill [facility] [address] [facility] [address] [place] [address] Naif Calzada MD Med Refill 04/15/2025 Refill [facility] [address] [facility] [address] [place] [phone] Joann Hubbard, CHANGE CONTROL ANALYST Med Refill from Last 3 Months Immunizations Immunization Administration Dates Next Due FluMist 2-49yrs 09/21/2015 Fluzone High-Dose 65+YRS 08/31/2017 Family History Medical History Relation Name Comments Diabetes Brother Heart disease Father solange lopez Stomach cancer Maternal Grandfather Diabetes Mother cm lopez Heart disease Mother cm lopez Relation Name Status Comments Brother Alive Father solange lopez Maternal Grandfather Mother cm lopez Alive Social History Tobacco Use Types Packs/Day Years [...] Pulse 72 06/24/2025 1:08 PM EDT Temperature 36.2 C (97.2 F) 06/20/2024 6:44 AM EDT Respiratory Rate 15 06/20/2024 9:08 AM EDT Oxygen Saturation 99% 06/24/2025 1:08 PM EDT Inhaled Oxygen Concentration - - Weight 104 kg (228 lb 6.4 oz) 06/24/2025 1:07 PM EDT Height 177.8 cm (5' 10 ) 06/24/2025 1:07 PM EDT Body Mass Index 32.77 06/24/2025 1:07 PM EDT Plan of Treatment Upcoming Encounters Date Type Department Care Team (Late st Contact Info) Description 10/30/2025 10:20 AM EST Office Visit [facility] [address] [facility] [address] [place] [address] Joann Hubbard, CHANGE CONTROL ANALYST [address] [facility] [address] [place] [address] Scheduled Procedures Name Priority Associated Diagnoses Date/Ti me CORONARY ANGIOGRAPHY Unstable angina Health Maintenance Due Date Last Done Comments COLOGUARD 1996 COLON CANCER SCREENING 5 YEA R SIGMOIDOSCOPY [address] COLONOGRAPHY 1996 FECAL OCCULT BLOOD TEST 1996 FIT Testing (1 year) 1996 ZOSTER VACCINE (1 of 2) 2001 ANNUAL WELLNESS VISIT 02/22/2017 HEPATITIS C SCREENING 02/22/2017 TDAP/TD VACCINES (1 - Tdap) 10/14/2019 10/13/2019 COVID-19 Vaccine (3 - 2023-2 5 season) 2024 03/02/2021, 02/02/2021 INFLUENZA VACCINE 08/26/2025 08/29/2024, , 07/31/2019, Additional history exists COLONOSCOPY 08/22/2031 08/22/2021, 04/2018, 10/12/2016 COLORECTAL CANCER SCREENING 08/22/2031 AAA SCREEN ONCE Completed 10/06/2019, 01/07/2019 HEMOGLOBIN A1C Discontinued 03/07/2021, 12/2019, 12/23/2019, Additional history exists Pneumococcal Vaccine 50+ Completed 09/01/2022 Medical Devices Implanted Type Area Rn Radiology Device Identifier Shelf Expiration Date Model / Serial / Lot Seed Prost Interstitial Loose I125 - [id number] Implanted:Qty: 122 on 10/30/2016 by Olu Mendes MD at [facility] Implant N/A: Prostate THERAGENICS MARITA 11/17/2016 [id number] / / [id number] Description:THERAGENICS IODI NE 125 MODEL PGE418 with 122 seeds Stent Xience Alpine Tyron Rx [id number] - [id number] Implanted:Qty: 1 on 11/14/2017 by Ayan Haro MD at [facility] [employer] 07/24/2020 [id number] / / [id number] Stent Xience Alpine Tyron Rx [id number] - [id number] Implanted:Qty: 1 on 11/14/2017 by Ayan Haro MD at [facility] [employer] 07/30/2020 [id number] / / [id number] Stent Xience Alpine Tyron Rx [id number] - [id number] Implanted:Qty: 1 on 11/14/2017 by Ayan Haro MD at [facility] [employer] 05/01/2020 [id number] / / [id number] Procedures Procedure Name Priority Date/Time Associated Diagnosis Comments SCANNED - LABS 06/05/2025 CT ABDOMEN PELVIS WO CONTRAST STAT 10/06/2019 12:34 PM EST from Last 3 Months or Most Recently Relevant to Health Maintenance Results * LABS SCANNED (06/05/2025) Joann Hubbard APRN LAB BLOOD ORDERABLES Final Result * CT Abdomen Pelvis Without Contrast (10/06/2019 12:34 PM EST) Anatomical Region Laterality Modality Abdomen, Pelvis N/A Computed Tomogra phy 10/06/2019 12:5 7 PM EST Impressions 10/08/2019 4:48 PM EST No acute intra-abdominal or pelvic abnormality identified. No renal or ureteral stone present. Diverticulosis with no evidence of diverticulitis. E: 10/06/2019 This report was finalized on 10/08/2019 4:[address] Elaine Leonardo MD. Narrative 10/08/2019 4:48 PM EST EXAMINATION: CT ABDOMEN PELVIS WO CONTRAST- 10/06/2019 INDICATION: Bloody urine, lower back pain, bilateral flank pain and hematuria for 2 days TECHNIQUE: Multiple axial CT imaging was obtained of the abdomen and pelvis from the lung bases through the pubic symphysis without the administration of oral or intravenous contrast. The radiation dose reduction device was turned on for each scan per the ALARA (As Low as Reasonably Achievable) protocol. COMPARISON: NONE FINDINGS: Abdomen: The lung bases are grossly clear. Liver is homogeneous. The spleen is unremarkable. Kidneys and adrenal glands within normal limits. No stones in the gallbladder. Pancreas is homogeneous in appearance. Diverticulosis of the colon. No evidence of diverticulitis. Vascular calcifications seen of the abdominal aorta and iliac vessels. No free fluid or free air. No abnormal mass or fluid collections identified. Pelvis: Radiation seeds in the prostate. Pelvic organs are unremarkable. The pelvic portion of the gastrointestinal tract are within normal limits. No abnormal mass or fluid collections identified. The bony structures reveal degenerative changes seen within the spine and pelvis. Procedure Note Elaine Leonardo MD - 10/08/2019 EXAMINATION: CT ABDOMEN PELVIS WO CONTRAST- 10/06/2019 INDICATION: Bloody urine, lower back pain, bilateral flank pain and hematuria for 2 days TECHNIQUE: Multiple axial CT imaging was obtained of the abdomen and pelvis from the lung bases through the pubic symphysis without the administration of oral or intravenous contrast. The radiation dose reduction device was turned on for each scan per the ALARA (As Low as Reasonably Achievable) protocol. COMPARISON: NONE FINDINGS: Abdomen: The lung bases are grossly clear. Liver is homogeneous. The spleen is unremarkable. Kidneys and adrenal glands within normal limits. No stones in the gallbladder. Pancreas is homogeneous in appearance. Diverticulosis of the colon. No evidence of diverticulitis. Vascular calcifications seen of the abdominal aorta and iliac vessels. No free fluid or free air. No abnormal mass or fluid collections identified. Pelvis: Radiation seeds in the prostate. Pelvic organs are unremarkable. The pelvic portion of the gastrointestinal tract are within normal limits. No abnormal mass or fluid collections identified. The bony structures reveal degenerative changes seen within the spine and pelvis. IMPRESSION: No acute intra-abdominal or pelvic abnormality identified. No renal or ureteral stone present. Diverticulosis with no evidence of diverticulitis. E: 10/06/2019 This report was finalized on 10/08/2019 4:[address] Elaine Leonardo MD. Jerica DOE IMG CT ORDERABLES Final Result from Last 3 Months or Most Recently Relevant to Health Maintenance Insurance MEDICARE A & B Member Subscriber Plan / Payer (Ef fective 2016-Present) Name:Favio Oleary Member ID:[id number] Relation to Subscriber:Self Name:Anirudh Favio D Subscriber ID:[id number] Payer ID:[id number] Group ID:Not on file Type:Not on file Address: [facility] [id number] [place] [id number] [employer] [place] [phone] Advance Directives * Full Code (Latest Code Status on File) Date Activated Date Inactivated Comments 11/14/2017 6:27 PM 11/15/2017 1:46 PM * Full Code Date Activated Date Inactivated Comments 11/14/2017 6:09 PM 11/14/2017 6:27 PM Care Teams Ict Customer Support Officer Relationship Specialty Start Date End Date Kumar Toledo MD [address] [place] [id number] PCP - General Family Medicine 07/06/22
--- NOTE | 2025-07-06 14:33 | CT_ITS ---
FINAL REPORT TECHNIQUE: Axial imaging of the chest is obtained after the administration of contrast. 3-D MIP reformatted images were also obtained and reviewed per PE protocol. CLINICAL HISTORY: SOB, ISCHEMIC HEART DISEASE COMPARISON: 05/01/2024 FINDINGS: The pulmonary arteries are well filled. There is no evidence of pulmonary embolus. There is no aortic dissection. Heart size is normal. There is no mediastinal, hilar, or axillary lymphadenopathy. There is no pleural or pericardial effusion. Previously seen distal esophageal wall thickening is less apparent. There is a stable, 6 mm nodule in the medial left lower lobe seen on series 3, image 37. There is also a stable, 4 mm left lower lobe nodule on series 3 image 48, also stable. 8 mm nodule in the right lower lobe on image 59 is again identified. Difference in size is likely related to slice selection. No new mass or nodule is identified. There is no consolidation. Limited evaluation of the upper abdomen demonstrates a hypodense lesion in the right kidney which is stable and likely a cyst.. No acute osseous abnormality. IMPRESSION: No evidence of pulmonary embolism or aortic dissection. Stable, bilateral subcentimeter pulmonary nodules. Reviewed, Interpreted and Dictated by Vonnie Arredondo MD Transcribed by Nisreen Gaona Authenticated and [facility]
[2025-07-06 15:14] LABS: Blood Urea Nitrogen 14 mg/dl (9-20); Creatinine,Serum 1.00 mg/dl (0.66-1.25); Estimated Glomerular Filt Rate 73 ml/min (>60); GFR (African American) 89 ML/MIN (>60)
[2025-07-06] MEDS: SODIUM CHLORIDE 0.9% 10ML SYR (RAD ONLY) 10 ML IV (15:54)
[2025-07-06] MEDS: IOPAMIDOL-370 (76%);100ML BOTTLE 85 ML IV (15:54)
[2025-07-06] MEDS: 0.9 % SODIUM CHLORIDE 50 ML VIAL IV (15:54)
== END 2025-07-06 23:59 | disposition home or self-care (01) ==
LOC: RAD 14:25
PROVIDERS: PCP Family Medicine; Visit Provider Nurse Practitioner
DX: R06.02 Shortness of breath (principal); I25.9 Chronic ischemic heart disease, unspecified; Z95.1 Presence of aortocoronary bypass graft; I10 Essential (primary) hypertension; I25.10 Atherosclerotic heart disease of native coronary artery without angina pectoris
CPT/HCPCS: 36415; 71275; 82565; 84520; 93306; Q9967

== ENCOUNTER 2025-08-24 11:25 | Outpatient (CLI) | payer MEDICARE, OTHER, SELFPAY ==
--- OUTSIDE RECORDS SUMMARY | 2025-03-16 13:30 | XMS_ITS ---
[facility] Address [address] [id number] Care Team Providers Care Strip Tank Tender Name Role Phone Kumar Toledo Primary Care Provider Allergies No Known Allergies REASON FOR VISIT gets short of breath when working Medications Medication SIG (Take, Route, Frequency, Duration) Notes Start Date End Date Status BD Swab Single Use Regular 1 DIRECTED 2 Active Multivitamin - 1 tab(s) orally once a day Active TRUE METRIX CONTROL LEVEL 1 - 05/17/2022 Active TRUE METRIX GO BLOOD GLUCOSE METER KIT, 1 EA - 05/17/2022 Acti ve Lancets 1 LANCET TEST ONCE A DAY Active Torsemide 5 MG 1 tab(s) orally once a day as needed Active Clopidogrel Bisulfate 75 MG 1 tab(s) ora lly once a day Active Tamsulosin HCl 0.4 MG 1 cap(s) orally on ce a day; Duration: 30 day(s) Active Trelegy Ellipta 100-62.5-25 MCG/ACT 1 puff Inhalation Once a day 03/16/2025 Active metFORMIN HCl ER 500 MG 1 tab(s) orally once a day Active Lactulose 20 GM/30ML 15 ml as needed Ora lly Once a day 02/22/2024 Active Carvedilol 12.5 MG 1 tab(s) orally 2 ti mes a day Active Losartan Potassium 25 MG 1 tab(s) orally once a day Active Metamucil Smooth Texture 58.6 % as directed Orally once daily 03/05/2024 Active MiraLax 17 GM/SCOOP 1 scoop mixed with 8 ounces of fluid Orally Once a day 03/05/2024 Active Meclizine HCl 25 MG 1 tablet as needed O rally every 8 hrs 06/16/2024 Active Atorvastatin Calcium 80 MG 1 tab(s) oral ly once a day (at bedtime) Active DropSafe Alcohol Prep 70 % USE DIRECT ED; Duration: 90 Active TRUE METRIX TEST STRIPS 1 STRIP TEST ONCE DAILY Active Problems Problem Type SNOMED Code ICD Code Onset Dates Problem Status W/U Status Risk Notes Problem Body mass index 30.00 to 34.99 ([id number] 107) BMI 31.0-31.9,a dult (Z68.31) Active confirmed Vital Signs Blood pressure systolic 142 mm Hg 03/16/20 25 Blood pressure diastolic 82 mm Hg 025 Heart Rate 71 /min 03/16/2025 Height 70 in 03/16/2025 Weight 222.4 lbs 03/16/2025 BMI 31.91 kg/m2 03/16/2025 Encounters Encounter Location Date Provider Diagnosis [facility] [address] [facility] [address] [place] [id number] 03/16/2025 Kumar Toledo SOB (shortness of breath) R06.02 ; Chronic obstructive pulmonary disease, unspecified COPD type J44.9 and BMI 31.0-31.9,adult Z68.31 Assessments Encounter Date Diagnosis (ICD Code) Assessment Notes Treatment Notes Treatment Clinical Notes Section Notes 03/16/2025 SOB (shortness of breath) (ICD-10 - R06.02) 03/16/2025 Chronic obstructive pulmonary disease, unspecified COPD type (ICD-10 - J44.9) 03/16/2025 BMI 31.0-31.9,adult (ICD-10 - Z68.31) Plan Of Treatment Medication Medication Name Sig Start Date Stop Date Notes Trelegy Ellipta 100-62.5-25 MCG/ACT 1 puff Inhalation Once a day 03/16/2025 Next Appt Details Follow Up: 2 Weeks, Reason: Progress Notes * SHAWN HARTMANDOB: (75 yo M)Acc No.[id number]:03/16/2025 Progress Notes Patient: SHAWN MUNOZ Provider: Jolanta Toledo M.D. :1950 A ge:74 Y S ex:Male Date:03/16/2025 Address:[place], [id number] Subjective: * Chief Complaints: * 1 . Gets short of breath when working. * HPI: C ardiology: 74 year old male presents with c/o Short of Breath T he pt states he has had shortness of breath with exertion over the past 3-4 weeks. Pt denies any cough or chest pain. Denies : Chest Pain. D enies : Dizziness. D enies : Palpitations. * ROS: D ERMATOLOGY: no R ely. n o H divya. G ASTROENTEROLOGY: no N ausea. n o V omiting. n o D iarrhea.? U ROLOGY: no D ifficulty urinating. n o B lood in urine. * Medical History: C oronary Artery Disease, s/p LT Heart Cath, Stents x 3, 2007, Hypertension, Hyperlipidemia, Impaired Fasting Glucose, Renal Insufficiency, Prostate Cancer, Diverticulosis, COPD, Abnormal PFT's 2022, Colon polyps, Sleep apnea. * Surgical History: H ernia Repair , Stent Placement x3 2007, Colon Repair , Prostate , colonoscopy - 2023 . * Hospitalization/Major Diagno stic Procedure: D ehydration, Dizziness- [facility] 04/24/2016, Stent Placement- [facility] 2007. * Family History: F ather: alive, diagnosed with Hypertension, family history unknown . M other: alive, diagnosed with Diabetes, Hypertension, Heart Disease. S iblings: alive, diagnosed with Diabetes. Children: alive. 1 brother(s) . 1 daughter(s) - healthy. . Mother - AFib, CAD, Pacemaker, [place] Brother - Neuropathy. * Social History: C URRENT TOBACCO USE S moking Status: P atient does NOT smoke, F ormer Smoker:?Yes, Q uit smokin 013. C affeine: yes, frequency: 2 cups a day. Tea. Alcohol: no. Past smoking status: previous history. * Medications: T aking Torsemide 5 MG Tablet 1 tab(s) orally once a day as needed , Taking Tamsulosin HCl 0.4 MG Capsule 1 cap(s) orally once a day , Taking Clopidogrel Bisulfate 75 MG Tablet 1 tab(s) orally once a day , Taking Multivitamin - Tablet 1 tab(s) orally once a day , Taking BD Swab Single Use Regular 1 DIRECTED , Taking TRUE METRIX GO BLOOD GLUCOSE METER KIT, 1 EA - , Taking TRUE METRIX CONTROL LEVEL 1 - , Taking Lancets 1 LANCET TEST ONCE A DAY , Taking TRUE METRIX TEST STRIPS 1 STRIP TEST ONCE DAILY , Taking DropSafe Alcohol Prep 70 % Pad USE DIRECTED , Taking MiraLax 17 GM/SCOOP Powder 1 scoop mixed with 8 ounces of fluid Orally Once a day , Taking Metamucil Smooth Texture 58.6 % Powder as directed Orally once daily , Taking Atorvastatin Calcium 80 MG Tablet 1 tab(s) orally once a day (at bedtime) , Taking Meclizine HCl 25 MG Tablet 1 tablet as needed Orally every 8 hrs , Taking Lactulose 20 GM/30ML Solution 15 ml as needed Orally Once a day , Taking metFORMIN HCl ER 500 MG Tablet Extended Release 24 Hour 1 tab(s) orally once a day , Taking Losartan Potassium 25 MG Tablet 1 tab(s) orally once a day , Taking Carvedilol 12.5 MG Tablet 1 tab(s) orally 2 times a day , Discontinued Stiolto Respimat 2.5-2.5 MCG/ACT Aerosol Solution 2 puffs Inhalation Once a day , Discontinued Lidocaine 5 % Patch 1 to 3 patches remove after 12 hours Externally Once a day , Medication List reviewed and reconciled with the patient * Allergies: N .K.D.A. Objective: * Vitals: W t: 222.4, Temp: 97.8, BP: 142/82, HR: 71, O2 Sat: 98% on RA, Nurse: IVAN, Ht: 70, BMI:31.91. * Examination: G eneral Examination: General Appearance: N AD. H eart: R SR. L ungs:?clear to auscultation. P eripheral pulses: n ormal (2+) bilaterally. E xtremities:?no leg edema. Assessment: * Assessment: 1. S OB (shortness of breath) - R06.02 (Primary) 2 . C hronic obstructive pulmonary disease, unspecified COPD type - J44.9 3 . B [place] 31.0-31.9,adult - Z68.31 Plan: * Treatment: * Procedure Codes: G 2211 Complex e/m visit add on, 3077F SYST BP = 140 MM HG6 IT, 3079F DIAST BP 80- 89 MM HG * Follow Up: 2 Weeks * Images: Billing Information: * Visit Code: 27296 Office Visit, Est Pt., Level 3. * Procedure Codes: G2211 Complex e/m visit add on. 3077F SYST BP = 140 MM HG6 IT. 3079F DIAST BP 80-89 MM HG. * Electronic signature of Cayla Toledo MD on 08/24/2025 at 11:28 AM EDT Sign off status: Pending * Provider: oJlanta Toledo M.D. Date: 0 03/16/2025 Generated for Radha harry/Gregor/Gavinoitting on: 0 08/24/2025 11:28 AM EDT History and Physical Notes * HPI (History of Present Illness) Category Sub-Category Detail Notes Category Not es Cardiology Short of Breath The pt states he has had shortness of breath with exertion over the past 3-4 weeks. Pt denies any cough or chest pain Chest Pain Palpitations Dizziness Examination Category Sub-Category Detail Notes Category Not es General Examination Heart: RSR Lungs: clear to auscultatio n Extremities: no leg edema General Appearance: NAD Peripheral pulses: normal (2+) bilatera lly
--- OUTSIDE RECORDS SUMMARY | 2025-03-30 07:15 | XMS_ITS ---
Author Organization [facility] Address [address] [facility] [address] [place] [id number] Care Team Providers Care Foreign Languages Professor Name Role Phone Kumar Toledo Primary Care Provider Allergies No Known Allergies REASON FOR VISIT 2 weeks Encounters Encounter Location Date Provider Diagnosis [facility] [address] [place] [id number] 03/30/2025 Kumar Toledo Plan Of Treatment No Information Progress Notes * SHAWN HARTMANDOB: (75 yo M)Acc No.[id number]:03/30/2025 Progress Notes Patient: SHAWN MUNOZ Provider: Jolanta Toledo M.D. :1950 A ge:74 Y S ex:Male Date:03/30/2025 Address:[facility] [place], [id number] Subjective: * Chief Complaints: * 1 . 2 weeks. * ROS: D ERMATOLOGY: no R ely. n o H divya. G ASTROENTEROLOGY: no N ausea. n o V omiting. U ROLOGY: no D ifficulty urinating. n [...] Diagno stic Procedure: D ehydration, Dizziness- [facility] 04/24/2016, Stent Placement- [facility] 2007. * Family History: F ather: alive, diagnosed with Hypertension, family history unknown . M other: alive, diagnosed with Diabetes, Hypertension, Heart Disease. S iblings: alive, diagnosed with Diabetes. Children: alive. 1 brother(s) . 1 daughter(s) - healthy. . Mother - AFib, CAD, Pacemaker, [place] Brother - Neuropathy. * Social History: C URRENT TOBACCO USE S moking Status: P atient does NOT smoke, F ormer Smoker:?Yes, Q uit smokin 013. C affeine: yes, frequency: 2 cups a day. Tea. Alcohol: no. Past smoking status: previous history. * Allergies: N .K.D.A. Objective: * Vitals: Assessment: Plan: * Treatment: * Images: Billing Information: * Visit Code: * Procedure Codes: * Electronic signature of Cayla Toledo MD on 08/24/2025 at 11:29 AM EDT Sign off status: Pending * Provider: Jolanta Toledo M.D. Date: 0 03/30/2025 Generated for Radha harry/Gregor/Regla on: 0 08/24/2025 11:29 AM EDT
--- OUTSIDE RECORDS SUMMARY | 2025-05-13 06:45 | XMS_ITS ---
Author Organization [facility] Address [address] [id number] Care Team Providers Care Tripoler Name Role Phone MatadorCbKumar Primary Care Provider Allergies No Known Allergies Results Component Value Reference Range Notes CBC Venipuncture (in house) Reviewed date:05/14/2025 09:04:29 AM Interpretation:Normal Performing Lab: Notes/Report: Normal wbc 7.7 3.5 - 10 lymph 17.8 15 - 50 mid 5.8 2 - 15 gran 76.4 35 - 80 rbc 4.31 3.5 - 5.5 hgb 12.8 11.5 - 16.5 hct 38.4 35 - 55 mcv 88.9 75 - 100 mch 29.6 25 - 35 mchc 33.3 31 - 38 platlet 272 100 - 400 P-Vitamin B12 Reviewed date:05/14/2025 09:04:29 AM Interpretation:Normal Performing Lab: Notes/Report: Test performed by [facility] [address] [place] [address] [place] [address] Giovani Sanz MD, Bin Worker CLIA: [id number] Vitamin B12 794 780-2437 pg/mL P-Comprehensive Metabolic Pa jhon (CMP) Reviewed date:05/14/2025 09:04:29 AM Interpretation:cl 109, gluc 124 Performing Lab: Notes/Report: Test performed by [facility] [address] [place], [place] [address] [place] [place] [address] Giovani Sanz MD, Bin Worker CLIA: [id number] Sodium 142 135-145 mmol/L Potassium 4.3 3.5-5.3 mmol/L Chloride 109 97-108 mmol/L CO2 24 22-32 mmol/L Glucose 124 65-99 mg/dL BUN 16 8-23 mg/dL Creatinine 0.98 0.70-1.30 mg/dL Calcium 9.4 8.6-10.4 mg/dL eGFR by Creatinine 81 >59 mL/min/1.73m2 Protein 6.5 6.0-8.3 g/dL Albumin 4.3 3.5-5.3 g/dL Alkaline Phosphatase 73 40-129 IU/L ALT (SGPT) 19 <5-55 IU/L AST (SGOT) 18 <5-46 IU/L Bilirubin, Total 0.4 <0.2-1.2 mg/dL A/G Ratio 2.0 1.1-2.5 P-Magnesium Reviewed date:05/14/2025 09:04:29 AM Interpretation:Normal Performing Lab: Notes/Report: Test performed by [facility] [address] [place] [address] , [place] [address] Giovani Sanz MD, Bin Worker CLIA: [id number] Magnesium 2.0 1.6-2.4 mg/dL P-Phosphorus Reviewed date:05/14/2025 09:04:29 AM Interpretation:Normal Performing Lab: Notes/Report: Test performed by [facility] [address] [place] [address] , [place] [address] Giovani Sanz MD, Bin Worker CLIA: [id number] Phosphorus 2.8 2.5-4.5 mg/dL P-Vitamin D 25-Hydroxy Reviewed date:05/14/2025 09:04:29 AM Interpretation:34 Performing Lab: Notes/Report: Test performed by [facility] [address] [place] [address] [place] [address] Giovani Sanz MD, Bin Worker CLIA: [id number] Vitamin D 25-Hydroxy 34.0 30.0-100.0 ng/mL Interpretation of Vitamin D 25 OH: < 20 ng/mL - Deficiency 20 - 29 ng/mL - Insufficiency 30 - 100 ng/mL - Sufficiency > 100 ng/mL - Super-therapeutic- toxicity may occur above this level. Clinical correlation required. REASON FOR VISIT Ear Stopped Up Medications Medication SIG (Take, Route, Frequency, Duration) Notes Start Date End Date Status Lactulose 20 GM/30ML 15 ml as needed Ora lly Once a day 02/22/2024 Active metFORMIN HCl ER 500 MG 1 tab(s) orally once a day Active Meclizine HCl 25 MG 1 tablet as needed O rally every 8 hrs 06/16/2024 Active Trelegy Ellipta 100-62.5-25 MCG/ACT 1 puff Inhalation Once a day 03/16/2025 Active Losartan Potassium 50 MG 1 tablet Orally Once a day Active Carvedilol 12.5 MG 1 tab(s) orally 2 ti mes a day Active MiraLax 17 GM/SCOOP 1 scoop mixed with 8 ounces of fluid Orally Once a day 03/05/2024 Active Metamucil Smooth Texture 58.6 % as directed Orally once daily 03/05/2024 Active Atorvastatin Calcium 80 MG 1 tab(s) oral ly once a day (at bedtime) Active TRUE METRIX GO BLOOD GLUCOSE METER KIT, 1 EA - 05/17/2022 Acti ve TRUE METRIX CONTROL LEVEL 1 - 05/17/2022 Active Lancets 1 LANCET TEST ONCE A DAY Active TRUE METRIX TEST STRIPS 1 STRIP TEST ONCE DAILY Active DropSafe Alcohol Prep 70 % USE DIRECT ED; Duration: 90 Active BD Swab Single Use Regular 1 DIRECTED 2 Active Multivitamin - 1 tab(s) orally once a day Active Torsemide 5 MG 1 tab(s) orally once a day as needed Active Tamsulosin HCl 0.4 MG 1 cap(s) orally on ce a day; Duration: 30 day(s) Active Clopidogrel Bisulfate 75 MG 1 tab(s) ora lly once a day Active Problems Problem Type SNOMED Code ICD Code Onset Dates Problem Status W/U Status Risk Notes Problem BMI 30+ - obesity (703174766) BMI 32.0-32.9,a dult (Z68.32) Active confirmed Vital Signs Blood pressure systolic 132 mm Hg 05/13/20 25 Blood pressure diastolic 82 mm Hg 025 Heart Rate 71 /min 05/13/2025 Height 70 in 05/13/2025 Weight 227 lbs 05/13/2025 BMI 32.57 kg/m2 05/13/2025 Encounters Encounter Location Date Provider Diagnosis [facility] [address] [place] [id number] 05/13/2025 Kumar Toledo Fatigue, unspecified type R53.83 ; HTN (hypertension) I10 ; Renal insufficiency N28.9 ; Excessive wax in right ear H61.21 ; Mixed hyperlipidemia E78.2 ; Impaired fasting glucose R73.01 and BMI 32.0-32.9,adult Z68.32 Assessments Encounter Date Diagnosis (ICD Code) Assessment Notes Treatment Notes Treatment Clinical Notes Section Notes 05/13/2025 Fatigue, unspecified type (ICD-10 - R53.83) 05/13/2025 HTN (hypertension) (ICD-10 - I10) 05/13/2025 Renal insufficiency (ICD-10 - N28.9) 05/13/2025 Excessive wax in right ear (ICD-10 - H61.21) 05/13/2025 Mixed hyperlipidemia (ICD-10 - E78.2) 05/13/2025 Impaired fasting glucose (ICD-10 - R73.01) 05/13/2025 BMI 32.0-32.9,adult (ICD-10 - Z68.32) Plan Of Treatment Medication Medication Name Sig Start Date Stop Date Notes Losartan Potassium 50 MG 1 tablet Orally Once a day Carvedilol 12.5 MG 1 tab(s) orally 2 times a day Next Appt Details Follow Up: via phone to repo rt test results, Reason: Procedure Notes * Category Sub-Category Detail Notes Irrigation Of Ears Procedure Ear prepped b y soaking with H2O2, Flushed with peroxide and warm water, Ears irrigated free of most debris Location Right Progress Notes * SHAWN HARTMANDOB: (75 yo M)Acc No.[id number]:05/13/2025 Progress Notes Patient: SHAWN MUNOZ Provider: Jolanta Toledo M.D. :1950 A ge:74 Y S ex:Male Date:05/13/2025 Address:[address] [place], [place] [id number] Subjective: * Chief Complaints: * 1 . Ear Stopped Up. * HPI: E NT/respiratory: 74 year old male presents with c/o ear pain d iminished hearing. pt states both ear are stoped up . Denies : Fever. * ROS: C ONSTITUTIONAL: Fatigue yes. D ERMATOLOGY: no R ely. n o [...] Diagno stic Procedure: D ehydration, Dizziness- [facility] 04/24/2016, Stent Placement- [facility] 2007. * Family History: F ather: alive, diagnosed with Hypertension, family history unknown . M other: alive, diagnosed with Hypertension, Diabetes, Heart Disease. S iblings: alive, diagnosed with Diabetes. Children: alive. 1 brother(s) . 1 daughter(s) - healthy. . Mother - AFib, CAD, Pacemaker, [place] Brother - Neuropathy. * Social History: C URRENT TOBACCO USE S moking Status: P atient does NOT smoke, F ormer Smoker:?Yes, Q uit smokin 013. C affeine: yes, frequency: 2 cups a day. Tea. Alcohol: no. Past smoking status: previous history. * Medications: T aking Losartan Potassium 50 MG Tablet 1 tablet Orally Once a day , Taking Torsemide 5 MG Tablet 1 tab(s) orally [...] tab(s) orally 2 times a day , Taking Trelegy Ellipta 100-62.5-25 MCG/ACT Aerosol Powder Breath Activated 1 puff Inhalation Once a day , Discontinued Losartan Potassium 25 MG Tablet 1 tab(s) orally once a day , Medication List reviewed and reconciled with the patient * Allergies: N .K.D.A. Objective: * Vitals: W t: 227, Temp: 98.8, BP: 132/82, HR: 71, O2 Sat: 95, Nurse: pe, Ht: 70, BMI:32.57. * Examination: G eneral Examination: General Appearance: N AD. H EENT: r ight ear canal is obstructed by cerumen. N nafisa: n o thyromegaly. H eart: R SR. L ungs: c lear to auscultation. P eripheral pulses: n ormal (2+) bilaterally. E xtremities: n o leg edema. Assessment: * Assessment: 1. F atigue, unspecified type - R53.83 (Primary) 2 . H TN (hypertension) - I10 3 . R enal insufficiency - N28.9 4 . E xcessive wax in right ear - H61.21 5 . M ixed hyperlipidemia - E78.2 6 . I mpaired fasting glucose - R73.01 7 . B NV 32.0-32.9,adult - Z68.32 ? Plan: * Treatment: Value Reference Range V itamin B12 332 019-1951 - pg/mL * Loretta Montaño 05/14/2025 09:0 4:22 AM EDT > See phone encounter ?LAB: P-Comprehensive Metabolic Panel (CMP) (Collection Date & Time - 05/13/2025 10:25 AM)?cl 109, gluc 124* Value Reference Range A /G Ratio 2.0 1.1-2.5 - * A lbumin 4.3 3.5-5.3 - g/dL * A lkaline Phosphatase 73 40-129 - IU/L * A LT (SGPT) 19 <5-55 - IU/L * A ST (SGOT) 18 <5-46 - IU/L * B ilirubin, Total 0.4 <0.2-1.2 - mg/dL * B UN 16 8-23 - mg/dL * C alcium 9.4 8.6-10.4 - mg/dL * C hloride 109 H 97-108 - mmol/L * C O2 24 22-32 - mmol/L * C reatinine 0.98 0.70-1.30 - mg/dL * G lucose 124 H 65-99 - mg/dL * P otassium 4.3 3.5-5.3 - mmol/L * S odium 142 135-145 - mmol/L * P rotein 6.5 6.0-8.3 - g/dL * e GFR by Creatinine 81 >59 - mL/min/1.73m2 * Loretta Montaño 05/14/2025 09:0 4:22 AM EDT > See phone encounter ?LAB: P-Magnesium (Collection Date & Time - 05/13/2025 10:25 AM)?Normal* Value Reference Range M agnesium 2.0 1.6-2.4 - mg/dL * SabraKrishna munroeia 05/14/2025 09:0 4:22 AM EDT > See phone encounter ?LAB: P-Phosphorus (Collection Date & Time - 05/13/2025 10:25 AM)?Normal* Value Reference Range P hosphorus 2.8 2.5-4.5 - mg/dL * SabraLoretta munroe 05/14/2025 09:0 4:22 AM EDT > See phone encounter ?LAB: P-Vitamin D 25-Hydroxy (Collection Date & Time - 05/13/2025 10:25 AM)? 34* Value Reference Range V itamin D 25-Hydroxy 34.0 30.0-100.0 - ng/mL * Loretta Montaño 05/14/2025 09:0 4:22 AM EDT > See phone encounter ?LAB: CBC Venipuncture (in house) (Collection Date & Time - 05/13/2025)? Normal* Value Reference Range w bc 7.7 3.5 - 10 * l ymph 17.8 15 - 50 * m id 5.8 2 - 15 * g ran 76.4 35 - 80 * r bc 4.31 3.5 - 5.5 * h gb 12.8 11.5 - 16.5 * h ct 38.4 35 - 55 * m cv 88.9 75 - 100 * m ch 29.6 25 - 35 * m chc 33.3 31 - 38 * p latlet 272 100 - 400 * Heaven Jaiver 05/13/2025 12 :32:10 PM EDT > Provider reviewed results while patient in office. Loretta Montaño 05/14/2025 09:04:22 AM EDT > See phone encounter 2.?HTN (hypertension)? Continue Losartan Potassium Tablet, 50 MG, 1 tablet, Orally, Once a day;?Continue Carvedilol Tablet, 12.5 MG, 1 tab(s), orally, 2 times a day.?LAB: P-Comprehensive Metabolic Panel (CMP) (Collection Date & Time - 05/13/2025 10:25 AM)?cl 109, gluc 124* Value Reference Range A /G Ratio 2.0 1.1-2.5 - * A lbumin 4.3 3.5-5.3 - g/dL * A lkaline Phosphatase 73 40-129 - IU/L * A LT (SGPT) 19 <5-55 - IU/L * A ST (SGOT) 18 <5-46 - IU/L * B ilirubin, Total 0.4 <0.2-1.2 - mg/dL * B UN 16 8-23 - mg/dL * C alcium 9.4 8.6-10.4 - mg/dL * C hloride 109 H 97-108 - mmol/L * C O2 24 22-32 - mmol/L * C reatinine 0.98 0.70-1.30 - mg/dL * G lucose 124 H 65-99 - mg/dL * P otassium 4.3 3.5-5.3 - mmol/L * S odium 142 135-145 - mmol/L * P rotein 6.5 6.0-8.3 - g/dL * e GFR by Creatinine 81 >59 - mL/min/1.73m2 * Loretta Montaño 05/14/2025 09:0 4:22 AM EDT > See phone encounter 3.?Renal insufficiency?LAB: P-Comprehensive Metabolic Panel (CMP) (Collection Date & Time - 05/13/2025 10:25 AM)?cl 109, gluc 124* Value Reference Range A /G Ratio 2.0 1.1-2.5 - * A lbumin 4.3 3.5-5.3 - g/dL * A lkaline Phosphatase 73 40-129 - IU/L * A LT (SGPT) 19 <5-55 - IU/L * A ST (SGOT) 18 <5-46 - IU/L * B ilirubin, Total 0.4 <0.2-1.2 - mg/dL * B UN 16 8-23 - mg/dL * C alcium 9.4 8.6-10.4 - mg/dL * C hloride 109 H 97-108 - mmol/L * C O2 24 22-32 - mmol/L * C reatinine 0.98 0.70-1.30 - mg/dL * G lucose 124 H 65-99 - mg/dL * P otassium 4.3 3.5-5.3 - mmol/L * S odium 142 135-145 - mmol/L * P rotein 6.5 6.0-8.3 - g/dL * e GFR by Creatinine 81 >59 - mL/min/1.73m2 * Loretta Montaño 05/14/2025 09:0 4:22 AM EDT > See phone encounter ?LAB: P-Phosphorus (Collection Date & Time - 05/13/2025 10:25 AM)?Normal* Value Reference Range P hosphorus 2.8 2.5-4.5 - mg/dL * Loretta Montaño 05/14/2025 09:0 4:22 AM EDT > See phone encounter * Procedures: I rrigation Of Ears: Procedure E ar prepped by soaking with H2O2, Flushed with peroxide and warm water, Ears irrigated free of most debris. L ocation R ight. ? * Procedure Codes: G 2211 Complex e/[place], [address] EAR IRRIGATION, 768[address] CBC WITH AUTO DIFF, 1036F TOBACCO NON-USER, G8950 PREHTN/HTN BP DOC INDCD F/U DOC, G8752 MOST RECENT SYSTOLIC BP < 140MM HG, G8754 MOST RECENT DIASTOLIC BP < 90MM HG * Follow Up: v ia phone to report test results * Images: Billing Information: * Visit Code: 01820 Office Visit, Est Pt., Level 4. Modifiers: 25 * Procedure Codes: G2211 Complex e/[place]. [address] EAR IRRIGATION. 21381 CBC WITH AUTO DIFF. 1036F TOBACCO NON-USER. G8950 PREHTN/HTN BP DOC INDCD F/U DOC. G8752 MOST RECENT SYSTOLIC BP < 140MM HG. G8754 MOST RECENT DIASTOLIC BP < 90MM HG. * Electronic signature of Cayla Toledo MD on 08/24/2025 at 11:29 AM EDT Sign off status: Pending * Provider: Jolanta Toledo M.D. Date: 0 05/13/2025 Generated for Printi ng/Faxing/eTransmitting on: 0 08/24/2025 11:29 AM EDT History and Physical Notes * HPI (History of Present Illness) Category Sub-Category Detail Notes Category Not es ENT/respiratory ear pain diminished heari ng. pt states both ear are stoped up Fever Examination Category Sub-Category Detail Notes Category Not es General Examination HEENT: right ear ca nal is obstructed by cerumen Heart: RSR Lungs: clear to auscultatio n Extremities: no leg edema General Appearance: NAD Neck: no thyromegaly Peripheral pulses: normal (2+) bilatera lly
--- OUTSIDE RECORDS SUMMARY | 2025-06-05 05:45 | XMS_ITS ---
Author Organization [facility] Address [address] [place] [id number] Care Team Providers Care Interpreter Deaf Name Role Phone Kumar Toledo Primary Care Provider [phone] Allergies No Known Allergies Results Component Value Reference Range Notes Glucose (In-House) Reviewed date:06/09/2025 09:44:23 AM Interpretation:125 Performing Lab: Notes/Report: 125 blood glucose 125 74 - 106 mg/dL Glycohemoglobin A1c (in hous e) Reviewed date:06/09/2025 09:44:23 AM Interpretation:6.1 Performing Lab: Notes/Report: 6.1 glycohemoglobin 6.1% 5 - 6.5 % P-Lipid Panel Reviewed date:06/09/2025 09:44:23 AM Interpretation:trigs 162, hdl 37 Performing Lab: Notes/Report: Test performed by [facility] [address] [place] [address] , [address], [place] [address] Giovani Sanz MD, German Professor CLIA: [id number] Cholesterol 150 <200 mg/dL Triglycerides 162 <150 mg/dL HDL Cholesterol 37 >39 mg/dL Cholesterol / HDL Ratio 4.05 0.00-4.99 Ratio Non-HDL Cholesterol 113 <130 mg/dL LDL Cholesterol (Calculation) 81 <130 mg/dL LDL Cholesterol Levels* Less than 100 mg/dL Optimal 100 to 129 mg/dL Near Optimal/ Above Optimal 130 to 159 mg/dL Borderline High 160 to 189 mg/dL High 190 mg/dL and above Very High * Categories as recommended by the 2004 ATPIII guidelines LDL/HDL Ratio 2.2 <3.3 Ratio LDL Cholesterol Patient History Test Date: 08/29/2024 LDL Results: 81 Units: mg/dL % Change: - Test Date: 06/05/2025 LDL Results: 81 Units: mg/dL % Change: 0% P-TSH reflex to FT4 Reviewed date:06/09/2025 09:44:23 AM Interpretation:Normal Performing Lab: Notes/Report: Test performed by [facility] [address] [place], [place] [address] [address] , [place] [address] Giovani Sanz MD, German Professor CLIA: [id number] TSH reflex to FT4 2.05 0.43-5.25 mU/L P-Microalbumin/Creatinine, R andom Urine Sample Reviewed date:06/09/2025 09:44:23 AM Interpretation:Normal Performing Lab: Notes/Report: Test performed by [facility] [address] [place], [place] [address] [address] [address] , [place] [address] Giovani Sanz MD, German Professor CLIA: [id number] Albumin/Creatinine Ratio, Urine 13 0-30 ug/m g Microalbumin, Urine, Random 1.3 Creatinine, Urine 104.0 REASON FOR VISIT Not Feeling Well Medications Medication SIG (Take, Route, Frequency, Duration) Notes Start Date End Date Status Carvedilol 12.5 MG 1 tab(s) orally 2 ti mes a day Active Losartan Potassium 50 MG 1 tablet Orally Once a day Active Torsemide 5 MG 1 tab(s) orally once a day as needed Active metFORMIN HCl ER 500 MG 1 tab(s) orally once a day Active Atorvastatin Calcium 80 MG 1 tab(s) oral ly once a day (at bedtime) Active Lactulose 20 GM/30ML 15 ml as needed Ora lly Once a day 02/22/2024 Active Meclizine HCl 25 MG 1 tablet as needed O rally every 8 hrs 06/16/2024 Active Metamucil Smooth Texture 58.6 % as directed Orally once daily 03/05/2024 Active Clopidogrel Bisulfate 75 MG 1 tab(s) ora lly once a day Active Trelegy Ellipta 100-62.5-25 MCG/ACT 1 puff Inhalation Once a day 03/16/2025 Active MiraLax 17 GM/SCOOP 1 scoop mixed with 8 ounces of fluid Orally Once a day 03/05/2024 Active DropSafe Alcohol Prep 70 % USE DIRECT ED; Duration: 90 Active TRUE METRIX TEST STRIPS 1 STRIP TEST ONCE DAILY Active Lancets 1 LANCET TEST ONCE A DAY Active TRUE METRIX CONTROL LEVEL 1 - 05/17/2022 Active Multivitamin - 1 tab(s) orally once a day Active Tamsulosin HCl 0.4 MG 1 cap(s) orally on ce a day; Duration: 30 day(s) Active TRUE METRIX GO BLOOD GLUCOSE METER KIT, 1 EA - 05/17/2022 Acti ve BD Swab Single Use Regular 1 DIRECTED Active Vital Signs Blood pressure systolic 120 mm Hg 06/05/20 25 Blood pressure diastolic 74 mm Hg 025 Heart Rate 84 /min 06/05/2025 Height 70 in 06/05/2025 Weight 222 lbs 06/05/2025 BMI 31.85 kg/m2 06/05/2025 Encounters Encounter Location Date Provider Diagnosis Suzan [address] [facility] [address] [place] [id number] 06/05/2025 Kumardavid EvangelistaMcalester Impaired fasting glu cose R73.01 ; Mixed hyperlipidemia E78.2 ; Coronary artery disease involving huslia coronary artery of huslia heart without angina pectoris I25.10 and HTN (hypertension) I10 Assessments Encounter Date Diagnosis (ICD Code) Assessment Notes Treatment Notes Treatment Clinical Notes Section Notes 06/05/2025 Impaired fasting glucose (ICD-10 - R73.01) 06/05/2025 Mixed hyperlipidemia (ICD-10 - E78.2) 06/05/2025 Coronary artery disease involving huslia coronary artery of huslia heart without angina pectoris (ICD-10 - I25.10) 06/05/2025 HTN (hypertension) (ICD-10 - I10) Plan Of Treatment Medication Medication Name Sig Start Date Stop Date Notes Carvedilol 12.5 MG 1 tab(s) orally 2 times a day Losartan Potassium 50 MG 1 tablet Orally Once a day metFORMIN HCl ER 500 MG 1 tab(s) orally once a day Atorvastatin Calcium 80 MG 1 tab(s) oral ly once a day (at bedtime) Clopidogrel Bisulfate 75 MG 1 tab(s) orally once a day Next Appt Details Follow Up: via phone to repo rt test results, Reason: Progress Notes * SHAWN HARTMANDOB: (75 yo M)Acc No.[id number]:06/05/2025 Progress Notes Patient: SHAWN MUNOZ Provider: Jolanta Toledo M.D. :1950 A ge:74 Y S ex:Male Date:06/05/2025 Address:[address] [facility] [place], [id number] Subjective: * Chief Complaints: * 1 . Not Feeling Well. * HPI: E ndocrinology: 74 year old male presents with c/o Fatigue P t complains of feeling tired all the time and states he does not have any energy. Pt states he does not feel sick, he just does not feel well . Pt states he just wants to lay down and will break out in sweat randomly . Pt requesting labs to be drawn today and is fasting . * ROS: D ERMATOLOGY: no R ely. [...] Diagno stic Procedure: D ehydration, Dizziness- [facility] 04/24/2016, Stent Placement- [facility] 2007. * Family History: F ather: alive, diagnosed with Hypertension, family history unknown . M other: alive, diagnosed with Hypertension, Diabetes, Heart Disease. S iblings: alive, diagnosed with Diabetes. Children: alive. 1 brother(s) . 1 daughter(s) - healthy. . Mother - AFib, CAD, Pacemaker, [place] Brother - Neuropathy. * Social History: C [...] tab(s) orally once a day , Taking Trelegy Ellipta 100-62.5-25 MCG/ACT Aerosol Powder Breath Activated 1 puff Inhalation Once a day , Taking Losartan Potassium 50 MG Tablet 1 tablet Orally Once a day , Taking Carvedilol 12.5 MG Tablet 1 tab(s) orally 2 times a day , Medication List reviewed and reconciled with the patient * Allergies: N .K.D.A. Objective: * Vitals: W t: 222, Temp: 98.0, BP: 120/74, HR: 84, Nurse: rosa, Ht: 70, BMI:31.85. * Examination: G eneral Examination: General Appearance: N AD. H eart: R SR. L ungs:?clear to auscultation. P eripheral pulses: n ormal (2+) bilaterally. E xtremities:?no leg edema. Assessment: * Assessment: 1. I mpaired fasting glucose - R73.01 (Primary) 2 . M ixed hyperlipidemia - E78.2 3 . C oronary artery disease involving huslia coronary artery of huslia heart without angina pectoris - I25.10 4 . H TN (hypertension) - I10 ? Plan: * Treatment: Value Reference Range b lood glucose 125 74 - 106 mg/dL * Zoë Cain 06/05/2025 11:03: 06 AM EDT > Loretta Montaño 06/09/2025 09:44:16 AM EDT > See phone encounter ?LAB: Glycohemoglobin A1c (in house) (Collection Date & Time - 06/05/2025)? 6.1* Value Reference Range g lycohemoglobin 6.1% 5 - 6.5 % * Zoë Cain 06/05/2025 11:06: 14 AM EDT > Loretta Montaño 06/09/2025 09:44:16 AM EDT > See phone encounter 2.?Mixed hyperlipidemia? Continue Atorvastatin Calcium Tablet, 80 MG, 1 tab(s), orally, once a day (at bedtime).?LAB: P-Lipid Panel (Collection Date & Time - 06/05/2025 09:07 AM)?trigs 162, hdl 37* Value Reference Range C holesterol / HDL Ratio 4.05 0.00-4.99 - Ratio * C holesterol 150 <200 - mg/dL * H DL Cholesterol 37 L >39 - mg/dL * L DL Cholesterol (Calculation) 81 <130 - mg/d L * L DL/HDL Ratio 2.2 <3.3 - Ratio * N on-HDL Cholesterol 113 <130 - mg/dL * T riglycerides 162 H <150 - mg/dL * Loretta Montaño 06/09/2025 09:4 4:16 AM EDT > See phone encounter ?LAB: P-TSH reflex to FT4 (Collection Date & Time - 06/05/2025 09:07 AM)? Normal* Value Reference Range T SH reflex to FT4 2.05 0.43-5.25 - mU/L * Loretta Montaño 06/09/2025 09:4 4:16 AM EDT > See phone encounter 3.?Coronary artery disease involving huslia coronary artery of huslia heart without angina pectoris? Continue Clopidogrel Bisulfate Tablet, 75 MG, 1 tab(s), orally, once a day.?? 4.?HTN (hypertension)? Continue Losartan Potassium Tablet, 50 MG, 1 tablet, Orally, Once a day;?Continue Carvedilol Tablet, 12.5 MG, 1 tab(s), orally, 2 times a day.?LAB: P-Microalbumin/Creatinine, Random Urine Sample (Collection Date & Time - 06/05/2025 09:07 AM)?Normal* Value Reference Range A lbumin/Creatinine Ratio, Urine 13 0-30 - ug /mg * C reatinine, Urine 104.0 - mg/dL * M icroalbumin, Urine, Random 1.3 - mg/dL * Loretta Montaño 06/09/2025 09:4 4:16 AM EDT > See phone encounter * Procedure Codes: G 2211 Complex e/[place], [address] GLUCOSE TEST, 38570 GLYCATED HEMOGLOBIN TEST, Modifiers: QW , 3044F HG A1C LEVEL LT 7.0%, 1036F TOBACCO NON-USER, G8950 PREHTN/HTN BP DOC INDCD F/U DOC, G8752 MOST RECENT SYSTOLIC BP < 140MM HG, G8754 MOST RECENT DIASTOLIC BP < 90MM HG * Follow Up: v ia phone to report test results * Images: Billing Information: * Visit Code: 68936 Office Visit, Est Pt., Level 4. * Procedure Codes: G2211 Complex e/[place]. [address] GLUCOSE TEST. 53378 GLYCATED HEMOGLOBIN TEST. Modifiers: QW 3044F HG A1C LEVEL LT 7.0%. 1036F TOBACCO NON-USER. G8950 PREHTN/HTN BP DOC INDCD F/U DOC. G8752 MOST RECENT SYSTOLIC BP < 140MM HG. G8754 MOST RECENT DIASTOLIC BP < 90MM HG. * Electronic signature of Cayla Toledo MD on 08/24/2025 at 11:30 AM EDT Sign off status: Pending * Provider: Jolanta Toledo M.D. Date: 0 06/05/2025 Generated for Radha harry/Gregor/eTransmitting on: 0 08/24/2025 11:30 AM EDT History and Physical Notes * HPI (History of Present Illness) Category Sub-Category Detail Notes Category Not es Endocrinology Fatigue Pt complains of feeling tired all the time and states he does not have any energy. Pt states he does not feel sick, he just does not feel well . Pt states he just wants to lay down and will break out in sweat randomly . Pt requesting labs to be drawn today and is fasting Examination Category Sub-Category Detail Notes Category Not es General Examination Heart: RSR Lungs: clear to auscultatio n Extremities: no leg edema General Appearance: NAD Peripheral pulses: normal (2+) bilatera lly
--- OUTSIDE RECORDS SUMMARY | 2025-07-21 13:00 | XMS_ITS | Encounter Summary ---
[facility] Organization [facility] Address [address] [place] [address] Care Team Providers Care Manager Consumer Insights Name Role Phone Kumar Toledo MD Primary Care Provider + [phone] Reason for Referral * Diagnostic Medical (Routine) - Authorized Specialty Diagnoses / Procedures Referred By Karyna carroll Referred To Contact Diagnoses Chronic obstructive pulmonary disease, unspecified COPD type Procedures Spirometry with Diffusion Capacity & Lung Volumes Yamil Fairbanks MD [address] [place] [address] Phone: tel: fax: [address] [address] Phone: tel: Referral ID Status Reason Start Date Expiration Date V isits Requested Visits Authorized [id number] Authorized 07/21/2025 10/20/2026 1 1 Reason for Visit * Reason Comments Lung Nodule Dyspnea on Exertion * Consultation (Routine) - Closed Specialty Diagnoses / Procedures Referred By Contact Referred To Contact Pulmonary Disease / Pulmonology Diagnoses Lung nodule Procedures MA OFFICE/OUTPATIENT NEW MODERATE MDM 45 MINUTES Joann Hubbard, HOGSHEAD DUMPER [address] [facility] [address] [place] [address] Phone: tel: fax: Napoleon Simon MD [address] [address] Phone: tel: fax: Referral ID Status Reason Start Date Expiration Date Visits Re quested Visits Authorized [id number] Closed 06/24/2025 09/23/2026 1 1 Encounter Details Date Type Department Care Team (Late st Contact Info) Description 07/21/2025 1:00 PM EDT Office Visit [facility] PULMONARY & CRITICAL CARE MEDICINE [address] [place] [address] Yamil Fairbanks MD [address] [place] [address] Chronic obstructive pulmonary disease, unspecified COPD type (Primary Dx); Mild intermittent asthma without complication; Multiple lung nodules on CT Social History Tobacco Use Types Packs/Day Years Used Date Smoking Tobacco: Former Cigarettes Q uit: 12/27/2008 Cigars Quit: 12/2008 Passive Smoke Exposure: Past Smokeless Tobacco: Never Alcohol Use Standard Drinks/Week [...] 06/20/2024 Difficulty Managing Errands Independently no 06/20/2024 PHQ-2 Answer Date Recorded Patient Health Questionnaire-9 Score 5 07/14/2025 Sex and Gender Information Value Date Recorded Sex Assigned at Not on file Legal Sex Male 11:15 AM EDT Gender Identity Not on file Sexual Orientation Not on file documented as of this encounter Last Filed Vital Signs Vital Sign Reading Time Taken Comments Blood Pressure 144/88 07/21/2025 12:12 PM EDT Pulse 71 07/21/2025 12:12 PM EDT Temperature 36.7 C (98 F) 07/21/2025 12:12 PM EDT Respiratory Rate 16 07/21/2025 12:1 2 PM EDT Oxygen Saturation 96% 07/21/2025 12: 12 PM EDT room air at resting Inhaled Oxygen Concentration - - Weight 102 kg (225 lb) 07/21/2025 12:12 PM EDT Height 177.8 cm (5' 10 ) 07/21/2025 12: 12 PM EDT Body Mass Index 32.28 07/21/2025 12:12 PM EDT documented in this encounter Progress Notes * Yamil Fairbanks MD - 07/21/2025 1:00 PM EDT Pulmonary Follow-up Patient Care Team: Kumar Toledo MD as PCP - General (Family Medicine) Deion Mendes MD as Consulting Physician (Radiation Oncology) Joann Hubbard APRN as Nurse Practitioner (Cardiology) Olu Mendes MD as Consulting Physician (Urology) Yamil Fairbanks MD as Consulting Physician (Pulmonary Disease) Kiarra Nava, RN as Nurse Navigator Chief Complaint Patient presents with Lung Nodule Dyspnea on Exertion Subjective 74 y.o. former smoker for 1 year who quit 30 years ago with history of URVASHI on CPAP, CAD with 6 stents, GERD, HTN, HLD, who reports worsening dyspnea over the past 2 or 3 months. He reports he can walk on a treadmill without problems, but has trouble walking outside. He doesn't notice wheezing. He does report post- nasal drip. No hemoptysis, night sweats, lymphadenopathy, unexplained weight loss. Interval History: History taken from: patient PMH/FH/Social History were reviewed and updated appropriately in the electronic medical record. Past Medical History: Diagnosis Date Abnormal liver function tests uncertain etiology with negative hepatitis profile and subsequently documented normal studies, summer 2005 Chest pain COPD (chronic obstructive pulmonary disease) intermittent CPAP Coronary artery disease Diabetes mellitus pre Dyslipidemia Elevated CPK of uncertain etiology with rheumatology evaluation initiated, July 2009, with recurrent apparent assessment - data deficit, [place], 2009. Fracture of metacarpophalangeal (MCP) joint left, nonoperative repair, GERD (gastroesophageal reflux disease) Hypertension Intermittent palpitations Ischemic heart disease Mild obesity BMI 31.5 Pre-diabetes mild glucose intolerance Prostate cancer Prostate cancer Prostate cancer Prostate disease Rectal fissure with severe obstipation/constipation and marked weight loss, late 2005 Sleep apnea Syncope Vertigo Past Surgical History: Procedure Laterality Date CARDIAC CATHETERIZATION CARDIAC CATHETERIZATION N/A 11/14/2017 Procedure: Left Heart Cath; Surgeon: Ayan Haro MD; Location: [facility]; Service: CARDIAC CATHETERIZATION N/A 06/20/2024 Procedure: Left Heart Cath; Surgeon: Miguel A Sykes MD; Location: [facility]; Service: Cardiology; Laterality: N/A; CAROTID STENT COLONOSCOPY 03/28/2024 COLONOSCOPY W/ POLYPECTOMY 2006 INGUINAL HERNIA REPAIR Right 2006 PROSTATE RADIOACTIVE SEED IMPLANT Bilateral 10/30/2016 Procedure: PROSTATE RADIOACTIVE SEED IMPLANT BILATERAL ; Surgeon: Olu Mendes MD; Location: [facility]; Service: UPPER GASTROINTESTINAL ENDOSCOPY with esophageal polyp removal and gastric biopsy, 1989 Family History Problem Relation Age of Onset Heart disease Mother Diabetes Mother Heart disease Father Diabetes Brother Stomach cancer Maternal Grandfather Social History Socioeconomic History Marital status: Single Tobacco Use Smoking status: Former Current packs/day: 0.00 Types: Cigars, Cigarettes Quit date: 12/27/2008 Years since quittin.5 Passive exposure: Past Smokeless tobacco: Never Vaping Use Vaping status: Never Used Substance and Sexual Activity Alcohol use: No Drug use: No Sexual activity: Defer Review of Systems: Review of Systems All other systems were reviewed and are negative. Exceptions are noted in the subjective or above. Objective Vital Signs Temp: [98 ??F (36.7 ??C)] 98 ??F (36.7 ??C) Heart Rate: [71] 71 Resp: [16] 16 BP: (144)/(88) 144/88 No intake/output data recorded. Body mass index is 32.28 kg/m??. Physical Exam: Constitutional: Alert, cooperative, in no acute distress Head: Normocephalic, without obvious abnormality, atraumatic Eyes: Lids and lashes normal, conjunctivae and sclerae normal, no icterus, no pallor, corneas clear, PER ENMT: Ears appear intact with no abnormalities noted No oral lesions, no thrush, oral mucosa moist Neck: No adenopathy, supple, trachea midline, no thyromegaly, no JVD Lungs/Resp: Normal effort, symmetric chest rise, no crepitus, clear to auscultation bilaterally, nochest wall tenderness Heart/CV: Regular rhythm and normal rate, normal S1 and S2, no murmur Abdomen/GI: Soft, non-tender, non-distended, normal bowel sounds : Deferred Extremities/MSK: No clubbing or cyanosis. No edema. Normal tone. No deformities. Pulses: Pulses palpable and equal bilaterally Skin: No bleeding, bruising or rash Heme/Lymph: No cervical or supraclavicular adenopathy. Neurologic: Psychiatric: Moves all extremities with no obvious focal motor deficit. Cranial nerves 2 - 12 grossly intact Oriented x 3, normal affect. The above findings are documentation of my personal physical examination from today. Electronically signed by: Yamil Fairbanks MD 07/21/25 17:42 EDT Results Review: I reviewed the patient's new clinical results. Imaging: I reviewed the patient's new imaging including reviewing the images and radiologist's report. I reviewed CT scans from 07/06/2025, 05/01/2024, and 07/06/2025. The scans show stable noncalcified nodules. PFTs: Full pulmonary function testing was done on 07/21/2025. Please see scanned PFT report for details. FVC was 3.54 L or 86% predicted. FEV1 was 2.69 L or 87% predicted. FEV1 to FVC 76%. Maximal voluntaryventilation 94 L/min or 82% predicted. Total lung capacity 5.76 L or 81% predicted. Residual volume2.21 L or 84% predicted. DLCO 83% predicted. DLCO/VA 103% predicted. Interpretation: No obstruction. Normal maximal voluntary ventilation. No restriction. No air trapping or hyperinflation. Normal DLCO. No prior study available for immediate comparison. Medication Review: Current Outpatient Medications Medication Sig Dispense Refill amLODIPine (NORVASC) 5 MG tablet TAKE 1 TABLET EVERY DAY 90 tablet 3 ASPIRIN 81 PO Take 1 tablet by mouth Daily. atorvastatin (LIPITOR) 80 MG tablet TAKE 1 TABLET EVERY NIGHT 90 tablet 3 Blood Glucose Calibration (True Metrix Level 1) Low solution Blood Glucose Monitoring Suppl (True Metrix Meter) w/Device kit carvedilol (COREG) 25 MG tablet TAKE 1 TABLET TWICE DAILY WITH MEALS 180 tablet 3 clopidogrel (PLAVIX) 75 MG tablet TAKE 1 TABLET EVERY DAY 90 tablet 3 fenofibrate (TRICOR) 145 MG tablet TAKE 1 TABLET BY MOUTH ONCE DAILY 30 tablet 6 lactulose (CHRONULAC) 10 GM/15ML solution Take 30 mL by mouth Every Other Day. losartan (COZAAR) 50 MG tablet Take 1 tablet by mouth Daily. 90 tablet 2 metFORMIN ER (GLUCOPHAGE-XR) 500 MG 24 hr tablet Take 1 tablet by mouth Daily With Breakfast. Multiple Vitamin (MULTI VITAMIN PO) Take 1 tablet by mouth Daily. nitroglycerin (NITROSTAT) 0.4 MG SL tablet DISSOLVE 1 TABLET UNDER TONGUE EVERY 5 MINUTES NEEDEDFOR CHEST PAIN. TAKE NO MORE THAN 3 DOSES IN 15 MINUTES. 25 tablet 3 NON FORMULARY CPAP Machine at night tamsulosin (FLOMAX) 0.4 MG capsule 24 hr capsule TAKE 1 CAPSULE EVERY NIGHT (PLEASE REQUEST FUTURE REFILLS FROM PCP) (Patient taking differently: Take 1 capsule by mouth Every Night.) 30 capsule 3 torsemide (DEMADEX) 5 MG tablet TAKE 1 TABLET EVERY DAY NEEDED (SWELLING AND/OR SHORTNESS OF BREATH) 90 tablet 3 True Metrix Blood Glucose Test test strip TRUEplus Lancets 33G misc albuterol sulfate HFA 108 (90 Base) MCG/ACT inhaler Inhale 2 puffs Every 4 (Four) Hours As Needed for Wheezing. 51 g 11 No current facility-administered medications for this visit. Assessment & Plan Problems Addressed this Visit Pulmonary and Pneumonias COPD (chronic obstructive pulmonary disease) - Primary Relevant Medications albuterol sulfate HFA 108 (90 Base) MCG/ACT inhaler Other Relevant Orders Spirometry with Diffusion Capacity & Lung Volumes (Completed) Multiple lung nodules on CT -stable since 2019. Relevant Medications albuterol sulfate HFA 108 (90 Base) MCG/ACT inhaler Other Visit Diagnoses Mild intermittent asthma without complication Relevant Medications albuterol sulfate HFA 108 (90 Base) MCG/ACT inhaler Diagnoses Codes Comments Chronic obstructive pulmonary disease, unspecified COPD type - Primary ICD-10-CM: J44.9 ICD-9-CM: 496 Mild intermittent asthma without complication ICD-10-CM: J45.20 ICD-9-CM: 493.[address] ICD-10-CM: R91.8 ICD-9-CM: 793.19 74 y.o. former smoker for 1 year who quit 30 years ago with history of URVASHI on CPAP, CAD with 6 stents, GERD, HTN, HLD, who reports worsening dyspnea over the past 2 or 3 months. He reports he can walk on a treadmill without problems, but has trouble walking outside. He doesn't notice wheezing. He does report post- nasal drip. No hemoptysis, night sweats, lymphadenopathy, unexplained weight loss. I reviewed the patient's CT scan of the chest from 07/06/2025, as well as prior CT scan from 05/01/2024. The scans have similar 3 noncalcified subcentimeter nodules that appear essentially stable between scans. Patient also has evidence of prior granulomatous disease with calcified lung nodule left upper lobe. I suspect the nodules are all due to prior granulomatous disease. All 3 nodules were also visible on prior CT abdomen images from October 06, 2019 and so they are benign. The patient has dyspnea on exertion but it seems to happen only when he is outside, not when he is exerting himself on a treadmill. He also reports that he was told he had COPD but has no obstructionon pulmonary function testing today. This makes asthma the most likely cause of his dyspnea. It is possibly exercise-induced or he is reacting to something outside. I recommended he take albuterol 2 puffs prior to exercise and 2 puffs as needed. He is going to keep track of how often he needs albuterol. I will reassess him in 3 months with a repeat spirometry. Depending on his albuterol requirement, patient may benefit from maintenance inhaler for asthma. Plan: 1. For lung nodules: Appear to be stable since 2019. No further follow-up is necessary. No concerning symptoms related to the nodules themselves. 2. For dyspnea/suspected exercise-induced asthma: Patient does not have COPD and I will delete thisdiagnosis as he has no obstruction on full pulmonary function testing. I will prescribe albuterol rescue inhaler to use prior to exercise. Also albuterol as needed. Patient will keep track of albuterol use and whether or not is helping him and I will reassess him in 3 months and determine if he needs maintenance inhaler. Also patient to call office if requires rescue inhaler more than a couple times a week and we can start maintenance. Immunization History Administered Date(s) Administered COVID-19 (PFIZER) Purple Cap Monovalent 02/02/2021, 03/02/2021 FluMist 2-49yrs 09/21/2015 Fluzone High-Dose 65+YRS 08/31/2017 Fluzone High-Dose 65+yrs 09/01/2022, 08/29/2024 Pneumococcal Conjugate 20-Valent (PCV20) 09/01/2022 Td, Not Adsorbed 10/13/2019 Social History Tobacco Use Smoking Status Former Current packs/day: 0.00 Types: Cigars, Cigarettes Quit date: 12/27/2008 Years since quittin.5 Passive exposure: Past Smokeless Tobacco Never Favio Oleary reports that he quit smoking about 16 years ago. His smoking use included cigars and cigarettes. He has been exposed to tobacco smoke. He has never used smokeless tobacco. Advance Care Planning ACP discussion was held with the patient during this visit. Patient does not have an advance directive, declines further assistance. I personally spent a total of 53 minutes on patient visit today including chart review, face to face with the patient obtaining the history and physical exam, review of pertinent images and tests, counseling and discussion and/or coordination of care as described above, and documentation. Total time excludes time spent on other separate services such as performing procedures or test interpretation, if applicable. Electronically signed by: Yamil Fairbanks MD 07/21/25 17:42 EDT *. Please note that portions of this note were completed with [employer] - a voice recognition program. documented in this encounter Plan of Treatment Upcoming Encounters Date Type Department Care Team (Late st Contact Info) Description 10/30/2025 10:20 AM EST Office Visit [facility] CARDIOLOGY [address] [place] [address] Joann Hubbard APRN [address] [place] [address] Scheduled Procedures Name Priority Associated Diagnoses Date/Ti me CORONARY ANGIOGRAPHY Unstable angina documented as of this encounter Procedures Procedure Name Priority Date/Time Associated Diagnosis Comments PULMONARY FUNCTION TEST Routine 07/21/2025 12:27 PM EDT Chronic obstructive pulmonary disease, unspecified COPD type documented in this encounter Results * Spirometry with Diffusion Capacity & Lung Volumes (07/21/2025 12:27 PM EDT) Yamil Fairbanks MD PFT ORDERABLES Final Result documented in this encounter Visit Diagnoses Diagnosis Chronic obstructive pulmonary disease, unspecified COPD type- Primary Mild intermittent asthma without complication Multiple lung nodules on CT documented in this encounter Care Teams Manager Consumer Insights Relationship Specialty Start Date End Date Kumar Toledo MD [facility] [address] [facility] [address] [place] [address] PCP - General Family Medicine 07/06/22 documented as of this encounter
--- OUTSIDE RECORDS SUMMARY | 2025-08-13 05:15 | XMS_ITS ---
Author Organization [facility] Address [address] [facility] [address] [place] [id number] Care Team Providers Care Animal Skinner Name Role Phone Kumar Toledo Primary Care Provider [phone] Allergies No Known Allergies REASON FOR VISIT 6 month ckup Encounters Encounter Location Date Provider Diagnosis [facility] [address] [facility] [address] [place] [id number] 08/13/2025 Kumar Toledo Plan Of Treatment No Information Progress Notes * SHAWN HARTMANDOB: (75 yo M)Acc No.[id number]:08/13/2025 Progress Notes Patient: SHAWN MUNOZ Provider: Jolanta Toledo M.D. :1950 A ge:75 Y S ex:Male Date:08/13/2025 Address:[facility] [id number] Subjective: * Chief Complaints: * 1 . 6 month ckup. * HPI: C ardiology: 75 year old male presents with c/o BloodPressure at Home P t. here for 6 month follow up on Hypertension. c/o Hyperlipidemia P t is fasting today.? * Medical History: C oronary Artery Disease, s/p LT Heart Cath, Stents x 3, 2007, Hypertension, Hyperlipidemia, Impaired Fasting Glucose, Renal Insufficiency, Prostate Cancer, Diverticulosis, COPD, Abnormal PFT's 2022, Colon polyps, Sleep apnea. * Surgical History: H ernia Repair , Stent Placement x3 2007, Colon Repair , Prostate , colonoscopy - 2023 . * Hospitalization/Major Diagno stic Procedure: D ehydration, Dizziness- [facility] 04/24/2016, Stent Placement- [facility] 2007. * Family History: F ather: alive, diagnosed with Hypertension, family history unknown . M other: alive, diagnosed with Hypertension, Diabetes, Heart Disease. S iblings: alive, diagnosed with Diabetes. Children: alive. 1 brother(s) . 1 daughter(s) - healthy. . Mother - AFib, CAD, Pacemaker, [place] Brother - Neuropathy. * Social History: C URRENT TOBACCO USE: No S moking Status: P atient does NOT [...] * Provider: Jolanta Toledo M.D. Date: 0 08/13/2025 Generated for Radha harry/Gregor/Gavnioitting on: 0 08/24/2025 11:28 AM EDT History and Physical Notes * HPI (History of Present Illness) Category Sub-Category Detail Notes Category Not es Cardiology BloodPressure at Home Pt. here f or 6 month follow up on Hypertension Hyperlipidemia Pt is fasting today
--- OUTSIDE RECORDS SUMMARY | 2025-08-24 11:29 | XMS_ITS | Encounter Summary ---
Author Organization [facility] Address [address] [place] [address] Care Team Providers Care Galvanizer Zinc Name Role Phone Kumar Toledo MD Primary Care Provider + [phone] Encounter Details Date Type Department Care Team (Late st Contact Info) Description 07/21/2025 Results Follow-Up [facility] PULMONARY & CRITICAL CARE MEDICINE [address] [place] [address] Yamil Fairbanks MD [address] [place] [address] Social History Tobacco Use Types Packs/Day Years [...] 10:20 AM EST Office Visit [facility] CARDIOLOGY [address] [place] [address] Joann Hubbard, OPHTHALMIC PATHOLOGIST [address] [facility] [address] [place] [address] Scheduled Procedures Name Priority Associated Diagnoses Date/Ti me CORONARY ANGIOGRAPHY Unstable angina documented as of this encounter Visit Diagnoses Not on filedocumented in this encounter Care Teams Galvanizer Zinc Relationship Specialty Start Date End Date Kumar Toledo MD [address] [facility] [address] [place] [address] PCP - General Family Medicine 07/06/22 documented as of this encounter
--- OUTSIDE RECORDS SUMMARY | 2025-08-24 11:29 | XMS_ITS | Data Portability ---
Author Organization [facility] SHELLY AldanaS [place] CLOSED Address [address] [place] [address] Care Team Providers Care Pipelines Supervisor Name Role Phone JERICHO JESSENIA Primary Care Provider Assessment No assessment recorded. Plan of Treatment Reminders Order Date Submit Date Provider Last Modified By Organization Details Last Modified Time Details Appointments RECHECK 2024 11:30A M EMMA CARRILLO MD Not available Not available Not available Lab urinalysi s panel, auto 2024 025 [email or web address] [facility], [address], [address], [place], [address], 02/25/2025 13:26:18 PSA, serum or plasma 2024 025 [email or web address] [facility], [address], [address], [place], [address], 02/25/2025 13:26:18 urinalysi s panel, auto 2023 024 [facility], [address], [address], [place], [address], 07/23/2024 14:25:57 PSA, serum or plasma [address] [facility], [address], [address], [place], [address], 07/23/2024 14:25:58 urinalysi s panel, auto [address] [facility], [address], [address], [place], [address], 01/24/2024 22:13:23 PSA, serum or plasma [address] [facility], [address], [address], [place], [address], 01/24/2024 22:13:24 urinalysi s panel, auto [address] [facility], [address], [address], [place], [address], 07/30/2023 13:03:33 PSA, serum or plasma [address] [facility], [address], [address], [place], [address], 07/30/2023 13:03:33 urinalysi s panel, auto [address] [facility], [address], [address], [place], [address], 12/31/2022 20:44:34 Referral None recorded. Procedures None recorded. Surgeries None recorded. Imaging None recorded. Medication Orders tamsulosi n 0.4 mg capsule 2022 023 [email or web address] [facility], [address], [address], [place], [address], 12/31/2022 20:44:24 Patient TargetsNo targets recorded. Patient InstructionsNo instructions recorded. Reason for Referral None Reported. Results Created Date Observation Date Name Description Value Unit Range Abnormal Flag Note LastModifiedBy Organization Detail LastModifiedTime 12/29/1912/29/2022 urina lysis panel , auto Unknown Analyte Clean Catch Not Available [facility] [address], [place], [address], 12/29/2022 14:14:00 12/29/1912/29/2022 urina lysis panel , auto Unknown Analyte Yellow Not Available [facility] [address], [place], [address], 12/29/2022 14:14:00 12/29/1912/29/2022 urina lysis panel , auto Unknown Analyte Clear Not Available [facility] [address], [place], [address], 12/29/2022 14:14:00 12/29/19 23 12/29/2022 urina lysis panel , auto Unknown Analyte 1.025 Not Available [facility] [address], [place], [address], 12/29/2022 14:14:00 12/29/19 23 12/29/2022 urina lysis panel , auto Unknown Analyte 1.003- 1.035 Not Available [facility] [address], [place], [address], 12/29/2022 14:14:00 12/29/19 23 12/29/2022 urina lysis panel , auto Unknown Analyte 5.0 Not Available [facility] [address], [place], [address], 12/29/2022 14:14:00 12/29/19 23 12/29/2022 urina lysis panel , auto Unknown Analyte 5.0-8. 0 Not Available [facility] [address], [place], [address], 12/29/2022 14:14:00 12/29/19 23 12/29/2022 urina lysis panel , auto Unknown Analyte Negati ve Not Available [facility] [address], [place], [address], 12/29/2022 14:14:00 12/29/19 23 12/29/2022 urina lysis panel , auto Unknown Analyte Negati ve Not Available [facility] [address], [place], [address], 12/29/2022 14:14:00 12/29/19 23 12/29/2022 urina lysis panel , auto Unknown Analyte Negati ve Not Available [facility] [address], [place], [address], 12/29/2022 14:14:00 12/29/19 23 12/29/2022 urina lysis panel , auto Unknown Analyte Negati ve Not Available [facility] [address], [place], [address], 12/29/2022 14:14:00 12/29/19 23 12/29/2022 urina lysis panel , auto Unknown Analyte Negati ve Not Available [facility] [address], [place], [address], 12/29/2022 14:14:00 12/29/19 23 12/29/2022 urina lysis panel , auto Unknown Analyte Negati ve Not Available [facility] [address], [place], [address], 12/29/2022 14:14:00 12/29/19 23 12/29/2022 urina lysis panel , auto Unknown Analyte Normal Not Available [facility] [address], [place], [address], 12/29/2022 14:14:00 12/29/19 23 12/29/2022 urina lysis panel , auto Unknown Analyte Normal Not Available [facility] [address], [place], [address], 12/29/2022 14:14:00 12/29/19 23 12/29/2022 urina lysis panel , auto Unknown Analyte Negati ve Not Available [facility] [address], [place], [address], 12/29/2022 14:14:00 12/29/19 23 12/29/2022 urina lysis panel , auto Unknown Analyte Negati ve Not Available [facility] [address], [place], [address], 12/29/2022 14:14:00 12/29/19 23 12/29/2022 urina lysis panel , auto Unknown Analyte Normal Not Available [facility] [address], [place], [address], 12/29/2022 14:14:00 12/29/19 23 12/29/2022 urina lysis panel , auto Unknown Analyte Normal 1 mg/dl Not Available [facility] [address], [place], [address], 12/29/2022 14:14:00 12/29/19 23 12/29/2022 urina lysis panel , auto Unknown Analyte Negati ve Not Available [facility] [address], [place], [address], 12/29/2022 14:14:00 12/29/19 23 12/29/2022 urina lysis panel , auto Unknown Analyte Negati ve Not Available [facility] [address], [place], [address], 12/29/2022 14:14:00 12/29/19 23 12/29/2022 urina lysis panel , auto Unknown Analyte Negati ve Not Available [facility] [address], [place], [address], 12/29/2022 14:14:00 12/29/19 23 12/29/2022 urina lysis panel , auto Unknown Analyte Negati ve Not Available [facility] [address], [place], [address], 12/29/2022 14:14:00 01/08/20 23 01/08/2023 PSA, serum or plasm a PSA 0.65 NG/mL 0.0 - 4.0 Not Available [facility] [address], [place], [address], 01/08/2023 12:58:47 07/23/20 23 07/23/2023 PSA, serum or plasm a PSA 0.86 NG/mL 0.0 - 4.0 Not Available [facility] [address], [place], [address], 07/23/2023 15:23:08 07/23/20 23 07/23/2023 urina lysis panel , auto Unknown Analyte Clean Catch Not Available [facility] [address], [place], [address], 07/23/2023 15:22:20 07/23/20 23 07/23/2023 urina lysis panel , auto Unknown Analyte Yellow Not Available [facility] [address], [place], [address], 07/23/2023 15:22:20 07/23/20 23 07/23/2023 urina lysis panel , auto Unknown Analyte Clear Not Available [facility] [address], [place], [address], 07/23/2023 15:22:20 07/23/20 23 07/23/2023 urina lysis panel , auto Unknown Analyte 1.020 Not Available [facility] [address], [place], [address], 07/23/2023 15:22:20 07/23/20 23 07/23/2023 urina lysis panel , auto Unknown Analyte 6.0 Not Available [facility] [address], [place], [address], 07/23/2023 15:22:20 07/23/20 23 07/23/2023 urina lysis panel , auto Unknown Analyte Negati ve Not Available [facility] [address], [place], [address], 07/23/2023 15:22:20 07/23/20 23 07/23/2023 urina lysis panel , auto Unknown Analyte Negati ve Not Available [facility] [address], [place], [address], 07/23/2023 15:22:20 07/23/20 23 07/23/2023 urina lysis panel , auto Unknown Analyte Negati ve Not Available [facility] [address], [place], [address], 07/23/2023 15:22:20 07/23/20 23 07/23/2023 urina lysis panel , auto Unknown Analyte Normal Not Available [facility] [address], [place], [address], 07/23/2023 15:22:20 07/23/20 23 07/23/2023 urina lysis panel , auto Unknown Analyte Negati ve Not Available [facility] [address], [place], [address], 07/23/2023 15:22:20 07/23/20 23 07/23/2023 urina lysis panel , auto Unknown Analyte Normal Not Available [facility] [address], [place], [address], 07/23/2023 15:22:20 07/23/20 23 07/23/2023 urina lysis panel , auto Unknown Analyte Negati ve Not Available [facility] [address], [place], [address], 07/23/2023 15:22:20 07/23/20 23 07/23/2023 urina lysis panel , auto Unknown Analyte Negati ve Not Available [facility] [address], [place], [address], 07/23/2023 15:22:20 01/23/20 24 01/23/2024 PSA, serum or plasm a PSA 1.1 NG/mL 0.0 - 4.0 Not Available [facility] [address], [place], [address], 01/23/2024 13:48:16 01/23/20 24 01/23/2024 urina lysis panel , auto Unknown Analyte Clean Catch Not Available [facility] [address], [place], [address], 01/23/2024 13:25:25 01/23/20 24 01/23/2024 urina lysis panel , auto Unknown Analyte Yellow Not Available [facility] [address], [place], [address], 01/23/2024 13:25:25 01/23/20 24 01/23/2024 urina lysis panel , auto Unknown Analyte Clear Not Available [facility] [address], [place], [address], 01/23/2024 13:25:25 01/23/20 24 01/23/2024 urina lysis panel , auto Unknown Analyte 1.015 Not Available [facility] [address], [place], [address], 01/23/2024 13:25:25 01/23/20 24 01/23/2024 urina lysis panel , auto Unknown Analyte 1.003- 1.035 Not Available [facility] [address], [place], [address], 01/23/2024 13:25:25 01/23/20 24 01/23/2024 urina lysis panel , auto Unknown Analyte 5.0 Not Available [facility] [address], [place], [address], 01/23/2024 13:25:25 01/23/20 24 01/23/2024 urina lysis panel , auto Unknown Analyte 5.0-8. 0 Not Available [facility] [address], [place], [address], 01/23/2024 13:25:25 01/23/20 24 01/23/2024 urina lysis panel , auto Unknown Analyte Negati ve Not Available [facility] [address], [place], [address], 01/23/2024 13:25:25 01/23/20 24 01/23/2024 urina lysis panel , auto Unknown Analyte Negati ve Not Available [facility] [address], [place], [address], 01/23/2024 13:25:25 01/23/20 24 01/23/2024 urina lysis panel , auto Unknown Analyte Negati ve Not Available [facility] [address], [place], [address], 01/23/2024 13:25:25 01/23/20 24 01/23/2024 urina lysis panel , auto Unknown Analyte Negati ve Not Available [facility] [address], [place], [address], 01/23/2024 13:25:25 01/23/20 24 01/23/2024 urina lysis panel , auto Unknown Analyte Negati ve Not Available [facility] [address], [place], [address], 01/23/2024 13:25:25 01/23/20 24 01/23/2024 urina lysis panel , auto Unknown Analyte Negati ve Not Available [facility] [address], [place], [address], 01/23/2024 13:25:25 01/23/20 24 01/23/2024 urina lysis panel , auto Unknown Analyte Normal Not Available [facility] [address], [place], [address], 01/23/2024 13:25:25 01/23/20 24 01/23/2024 urina lysis panel , auto Unknown Analyte Normal Not Available [facility] [address], [place], [address], 01/23/2024 13:25:25 01/23/20 24 01/23/2024 urina lysis panel , auto Unknown Analyte Negati ve Not Available [facility] [address], [place], [address], 01/23/2024 13:25:25 01/23/20 24 01/23/2024 urina lysis panel , auto Unknown Analyte Negati ve Not Available [facility] [address], [place], [address], 01/23/2024 13:25:25 01/23/20 24 01/23/2024 urina lysis panel , auto Unknown Analyte Normal Not Available [facility] [address], [place], [address], 01/23/2024 13:25:25 01/23/20 24 01/23/2024 urina lysis panel , auto Unknown Analyte Normal 1 mg/dl Not Available [facility] [address], [place], [address], 01/23/2024 13:25:25 01/23/20 24 01/23/2024 urina lysis panel , auto Unknown Analyte Negati ve Not Available [facility] [address], [place], [address], 01/23/2024 13:25:25 01/23/20 24 01/23/2024 urina lysis panel , auto Unknown Analyte Negati ve Not Available [facility] [address], [place], [address], 01/23/2024 13:25:25 01/23/20 24 01/23/2024 urina lysis panel , auto Unknown Analyte Negati ve Not Available [facility] [address], [place], [address], 01/23/2024 13:25:25 01/23/20 24 01/23/2024 urina lysis panel , auto Unknown Analyte Negati ve Not Available [facility] [address], [place], [address], 01/23/2024 13:25:25 07/23/20 24 07/23/2024 PSA, serum or plasm a PSA 1.3 NG/mL 0.0 - 4.0 Not Available [facility] [place] [address], [place], [address], 07/23/2024 14:13:45 07/23/20 24 07/23/2024 urina lysis panel , auto Unknown Analyte Clean Catch Not Available [facility] [address], [place], [address], 07/23/2024 13:42:26 07/23/20 24 07/23/2024 urina lysis panel , auto Unknown Analyte Yellow Not Available [facility] [address], [place], [address], 07/23/2024 13:42:26 07/23/20 24 07/23/2024 urina lysis panel , auto Unknown Analyte Clear Not Available [facility] [address], [place], [address], 07/23/2024 13:42:26 07/23/20 24 07/23/2024 urina lysis panel , auto Unknown Analyte 1.005 Not Available [facility] [address], [place], [address], 07/23/2024 13:42:26 07/23/20 24 07/23/2024 urina lysis panel , auto Unknown Analyte 1.003- 1.035 Not Available [facility] [address], [place], [address], 07/23/2024 13:42:26 07/23/20 24 07/23/2024 urina lysis panel , auto Unknown Analyte 6.5 Not Available [facility] [address], [place], [address], 07/23/2024 13:42:26 07/23/20 24 07/23/2024 urina lysis panel , auto Unknown Analyte 5.0-8. 0 Not Available [facility] [address], [place], [address], 07/23/2024 13:42:26 07/23/20 24 07/23/2024 urina lysis panel , auto Unknown Analyte Negati ve Not Available [facility] [address], [place], [address], 07/23/2024 13:42:26 07/23/20 24 07/23/2024 urina lysis panel , auto Unknown Analyte Negati ve Not Available [facility] [address], [place], [address], 07/23/2024 13:42:26 07/23/20 24 07/23/2024 urina lysis panel , auto Unknown Analyte Negati ve Not Available [facility] [address], [place], [address], 07/23/2024 13:42:26 07/23/20 24 07/23/2024 urina lysis panel , auto Unknown Analyte Negati ve Not Available [facility] [address], [place], [address], 07/23/2024 13:42:26 07/23/20 24 07/23/2024 urina lysis panel , auto Unknown Analyte Negati ve Not Available [facility] [address], [place], [address], 07/23/2024 13:42:26 07/23/20 24 07/23/2024 urina lysis panel , auto Unknown Analyte Negati ve Not Available [facility] [address], [place], [address], 07/23/2024 13:42:26 07/23/20 24 07/23/2024 urina lysis panel , auto Unknown Analyte Normal Not Available [facility] [address], [place], [address], 07/23/2024 13:42:26 07/23/20 24 07/23/2024 urina lysis panel , auto Unknown Analyte Normal Not Available [facility] [address], [place], [address], 07/23/2024 13:42:26 07/23/20 24 07/23/2024 urina lysis panel , auto Unknown Analyte Negati ve Not Available [facility] [address], [place], [address], 07/23/2024 13:42:26 07/23/20 24 07/23/2024 urina lysis panel , auto Unknown Analyte Negati ve Not Available [facility] [address], [place], [address], 07/23/2024 13:42:26 07/23/20 24 07/23/2024 urina lysis panel , auto Unknown Analyte Normal Not Available [facility] [address], [place], [address], 07/23/2024 13:42:26 07/23/20 24 07/23/2024 urina lysis panel , auto Unknown Analyte Normal 1 mg/dl Not Available [facility] [address], [place], [address], 07/23/2024 13:42:26 07/23/20 24 07/23/2024 urina lysis panel , auto Unknown Analyte Negati ve Not Available [facility] [address], [place], [address], 07/23/2024 13:42:26 07/23/20 24 07/23/2024 urina lysis panel , auto Unknown Analyte Negati ve Not Available [facility] [address], [place], [address], 07/23/2024 13:42:26 07/23/20 24 07/23/2024 urina lysis panel , auto Unknown Analyte Negati ve Not Available [facility] [address], [place], [address], 07/23/2024 13:42:26 07/23/20 24 07/23/2024 urina lysis panel , auto Unknown Analyte Negati ve Not Available [facility] [address], [place], [address], 07/23/2024 13:42:26 02/26/20 25 02/25/2025 PSA, serum or plasm a PSA 1.5 NG/mL 0.0 - 4.0 Not Available [facility] [address], [place], [address], 02/25/2025 13:20:17 02/26/20 25 02/25/2025 urina lysis panel , auto Unknown Analyte Clean Catch Not Available [facility] [address], [place], [address], 02/25/2025 13:06:01 02/26/20 25 02/25/2025 urina lysis panel , auto Unknown Analyte Yellow Not Available [facility] [address], [place], [address], 02/25/2025 13:06:01 02/26/20 25 02/25/2025 urina lysis panel , auto Unknown Analyte Clear Not Available [facility] [address], [place], [address], 02/25/2025 13:06:01 02/26/20 25 02/25/2025 urina lysis panel , auto Unknown Analyte 1.010 Not Available [facility] [address], [place], [address], 02/25/2025 13:06:01 02/26/20 25 02/25/2025 urina lysis panel , auto Unknown Analyte 1.003 - 1.030 Not Available [facility] [address], [place], [address], 02/25/2025 13:06:01 02/26/2002/25/2025 urina lysis panel , auto Unknown Analyte 6.0 Not Available [facility] [address], [place], [address], 02/25/2025 13:06:01 02/26/20 25 02/25/2025 urina lysis panel , auto Unknown Analyte 5.0 - 8.0 Not Available [facility] [address], [place], [address], 02/25/2025 13:06:01 02/26/20 25 02/25/2025 urina lysis panel , auto Unknown Analyte Negati ve Not Available [facility] [address], [place], [address], 02/25/2025 13:06:01 02/26/20 25 02/25/2025 urina lysis panel , auto Unknown Analyte Negati ve Not Available [facility] [address], [place], [address], 02/25/2025 13:06:01 02/26/20 25 02/25/2025 urina lysis panel , auto Unknown Analyte Negati ve Not Available [facility] [address], [place], [address], 02/25/2025 13:06:01 02/26/20 25 02/25/2025 urina lysis panel , auto Unknown Analyte Negati ve Not Available [facility] [address], [place], [address], 02/25/2025 13:06:01 02/26/2002/25/2025 urina lysis panel , auto Unknown Analyte Negati ve Not Available [facility] [address], [place], [address], 02/25/2025 13:06:01 02/26/20 25 02/25/2025 urina lysis panel , auto Unknown Analyte Negati ve Not Available [facility] [address], [place], [address], 02/25/2025 13:06:01 02/26/20 25 02/25/2025 urina lysis panel , auto Unknown Analyte Normal Not Available [facility] [address], [place], [address], 02/25/2025 13:06:01 02/26/20 25 02/25/2025 urina lysis panel , auto Unknown Analyte Normal Not Available [facility] [address], [place], [address], 02/25/2025 13:06:01 02/26/20 25 02/25/2025 urina lysis panel , auto Unknown Analyte Negati ve Not Available [facility] [address], [place], [address], 02/25/2025 13:06:01 02/26/20 25 02/25/2025 urina lysis panel , auto Unknown Analyte Negati ve Not Available [facility] [address], [place], [address], 02/25/2025 13:06:01 02/26/20 25 02/25/2025 urina lysis panel , auto Unknown Analyte Normal Not Available [facility] [address], [place], [address], 02/25/2025 13:06:01 02/26/20 25 02/25/2025 urina lysis panel , auto Unknown Analyte Normal Not Available [facility] [address], [place], [address], 02/25/2025 13:06:01 02/26/20 25 02/25/2025 urina lysis panel , auto Unknown Analyte Negati ve Not Available [facility] [address], [place], [address], 02/25/2025 13:06:01 02/26/20 25 02/25/2025 urina lysis panel , auto Unknown Analyte Negati ve Not Available [facility] [address], [place], [address], 02/25/2025 13:06:01 02/26/20 25 02/25/2025 urina lysis panel , auto Unknown Analyte Negati ve Not Available [facility] [address], [place], [address], 02/25/2025 13:06:01 02/26/20 25 02/25/2025 urina lysis panel , auto Unknown Analyte Negati ve Not Available [facility] [address], [place], [address], 02/25/2025 13:06:01 12/26/19 25 12/26/2024 US, retro perit oneum , limit ed No observ ation record ed. [address], [place], [address], 02/09/2025 23:24:12 Result Notes None recorded. Problems No Known Problems Medical Equipment None Reported. Allergies No known drug allergies Medications Name Sig Start Date Stop Date Status Note LastModified by Organization Details LastModified Time atorvasta tin 40 mg tablet Take 1 tablet every day by oral route. active Not Available Not Available No t Available Plavix 75 mg tablet Take 1 tablet every day by oral route. active Not Available Not Available No t Available Prevacid 30 mg capsule,d elayed release Every morning 11/06 completed Frequenc y: qam;Medi cation Descript ion: lansopra zole; Dosage:1 ; Route:or al; refills: 5; Quantity :30 enteric coated capsule Not Available Not Available Not Available Zantac 150 mg tablet Take 1 tablet twice a day by oral route. active Not Available Not Available No t Available tamsulosi n 0.4 mg capsule TAKE 1 CAPSULE EVERY DAY 2024 active Not Available Not Available Not Avai lable Levaquin 500 mg tablet Daily 11/06 completed Duration : 5 days;Ins truction s: Start the day before the procedur e.;Frequ ency: daily;Me dication Descript ion: levoflox acin; Dosage:1 ; Route:or al; refills: 0; Quantity :5 tablet Not Available Not Available Not Available losartan 100 mg tablet Take 1 tablet every day by oral route. active Not Available Not Available No t Available aspirin active Not Available Not Avail able Not Available Golytely As Directed 11/06 completed Duration : 1 day;Freq uency: as direct.; Medicati on Descript ion: polyethy quinton glycol 3350 with electrol ytes; Dosage:a s directed ; Route:or al; refills: 0; Quantity :2 powder for reconsti tution Not Available Not Available Not Available amlodipin e 02/15 completed Not Available Not Available Not Available metformin active Not Available Not Bonnie ilable Not Available Horizon Nasal Cpap System active Not Available Not Available Not Available Vitals Date Recorded Body height Provider Name an d Address Organization Details Last Updated DateTime 12/29/2022 177.8 cm EMMA CARRILLO MD [address] [place] [address], [address] 12/29/2022 13:29:11 Date Recorded Body height Body mass index (BMI) Body weight Provider Name and Address Organization Details Last Updated DateTime 01/23/2024 177.8 cm 32.3 kg/m2 136836.28 g Negrita Hare [facility] 01/23/2024 13:33:02 Date Recorded Body height Body mass index (BMI) Body weight Provider Name and Address Organization Details Last Updated DateTime 02/25/2025 177.8 cm 31.6 kg/m2 92193.32 g Negrita Hare [facility] 02/25/2025 13:12:46 Date Recorded Body height Body mass index (BMI) Body weight Provider Name and Address Organization Details Last Updated DateTime 07/23/2023 177.8 cm 32.3 kg/m2 168218.28 pepe Negrita Hare [facility] 07/23/2023 15:18:49 Date Recorded Body height Body mass index (BMI) Body weight Provider Name and Address Organization Details Last Updated DateTime 07/23/2024 177.8 cm 30.8 kg/m2 78652.36 pepe Hare [facility] 07/23/2024 14:42:14 Social History Question Answer Notes LastModified by Organizat ion Details LastModified Time Tobacco Smoking Status [facility] 11/06/2018 11:56:08 How Much Tobacco Do You Chew? None [email or web address] Information not available 08/18/2020 What Was The Date Of Your Most Recent Tobacco Screening? 11/06/2018 [email or web address] Information not available 01/13/2020 What Is Your Relationship Status? [email or web address] Information not available 02/25/2025 How Much Tobacco Do You Smoke? No [email or web address] Information not available 08/18/2020 Has Tobacco Cessation Counseling Been Provided? No [email or web address] Information not available 06/29/2022 Have You Recently Traveled Abroad? No [email or web address] Information not available 06/29/2022 Sex: Unknown Functional Status Question Answer Note LastModified by Organizat ion Details LastModified Time Do you use any illicit or recreational drugs? No [email or web address] Information not available 06/29/2022 Do you or have you ever used any other forms of tobacco or nicotine? No [email or web address] Information not available 06/29/2022 Mental Status None recorded. Family History Relationship Description Onset Age of this Age Resolved Age Notes LastModified by Organization Details LastModified Time Unspecified Relation Anxiety disorder tshouse Not available 2017 11:55:07 Unspecified Relation Depressive disorder tshouse Not available 2017 11:55:15 Unspecified Relation Diabetes mellitus tshouse Not available 2017 11:55:24 Unspecified Relation Heart disease tshouse Not available 2017 11:55:33 Unspecified Relation Hypercholest erolemia tshouse Not available 2017 11:55:43 Unspecified Relation Hypertensive disorder tshouse Not available 2017 11:55:53 Unspecified Relation Ulcer tshouse Not available 8 11:56:02 Medical History Condition Response Radiation Therapy Y High Cholesterol Y Colon Polyps Y Sleep Disorder Y Acid Reflux (GERD) Y Heart Disease Y Cancer Y Hypertension Y Past Encounters Encounter ID Performer Location Encounter Start Date Encounter Closed Date Diagnosis/Indication Diagnosis SNOMED-CT Code Diagnosis ICD10 Code Diagnosis IMO Codes Diagnosis Note [id number] TY ZAMORANO APRN [place] [address] [facility], [address] [place] [address] 11/06/2018 11:16:22 11/06/2018 13:31:21 Abdominal pain 07614001 R10.9 K31.7 [id number] EMMANUEL MORRISSEY MD SURGERY SCHEDULE [address] [place] [address] 12/02/2018 09:57:26 12/02/2018 09:58:20 [id number] EMMA CARRILLO [facility] [address] [address] 11/24/2019 15:26:33 11/24/2019 16:25:50 History of malignant neoplasm of prostate 283475750 Z85.46 Follow-up 3 months with PSA Jose A hematuria 22331097 5 R31.0 Observe Large prostate 695230261 N40.0 continue tamsulosin [id number] EMMA CARRILLO MD [facility] [address] [place] [address] 02/18/2020 13:38:32 02/18/2020 14:17:39 History of malignant neoplasm of prostate 820937387 Z85.46 Follow-up 6 months with PSA [id number] EMMA CARRILLO MD [facility] [address] [address] 08/18/2020 13:24:49 08/18/2020 14:31:57 Malignant neoplasm of prostate 587838799 C61 follow-up 6 months with PSA [id number] EMMA CARRILLO [facility] [address] [address] 02/15/2021 13:30:22 02/15/2021 14:37:37 History of malignant neoplasm of prostate 560986837 Z85.46 Follow-up 6 months with PSA [id number] EMMA CARRILLO MD [facility] [address] [address] 09/05/2021 13:25:35 09/05/2021 15:29:02 History of malignant neoplasm of prostate 961363489 Z85.46 Follow-up 6 months with PSA [id number] EMMA CARRILLO MD 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 [address] [address] 07/23/2023 14:31:13 07/23/2023 15:56:50 History of malignant neoplasm of prostate 306234965 Z85.46 Follow-up 6 months with PSA, continue tamsulosin [id number] EMMA CARRILLO MD [facility] [address] [address] 01/23/2024 13:10:03 01/23/2024 16:37:48 History of malignant neoplasm of prostate 124713834 Z85.46 Follow-up 6 months with PSA, continue tamsulosin [id number] EMMA CARRILLO MD [facility] [address] [address] 07/23/2024 13:06:44 07/23/2024 14:24:42 History of malignant neoplasm of prostate 185084442 Z85.46 Follow-up 6 months with PSA, continue tamsulosin Renal mass 703428807 N28 .89 We will arrange for renal ultrasound [id number] EMMA CARRILLO MD [facility] [address] [place] [address] 02/25/2025 12:42:38 02/25/2025 13:26:07 History of malignant neoplasm of prostate 674809488 Z85.46 Follow-up 6 months with PSA Health Concerns Section Related Observation LastModified by Organization Detai ls LastModified Time None Recorded Concern Status LastModified by Organization Details LastModified Time None Recorded Advance Directives Directive None Recorded Payers Insurance Date Sequence Insurance Name Policy Number Policy Vázquez Covered Member ID Vázquez Member ID Guarantor Name 12/19/2024 [employer] (MEDICARE REPLACEMENT/AD VANTAGE - PPO) Favio Oleary [id number] Favio Oleary 12/19/2024 2 [employer] (MEDICARE SUPPLEMENT) Favio Oleary [id number] Favio Oleary 12/19/2024 2 [place] Favio Oleary [id number] Favio Oleary 12/17/2018 2 UNSPECIFIED REMIT PAYOR Favio Oleary 12/22/2024 1 [employer] (MEDICARE REPLACEMENT/AD VANTAGE - PPO) Favio Oleary [id number] Favio Oleary 12/19/2024 2 [employer] (MEDICARE SUPPLEMENT) Favio Oleary [id number] Favio Oleary 02/25/2025 2 [employer]ICO [employer]ANCE [employer] (MEDICARE SUPPLEMENT) Favio Oleary [id number] Favio Oleary 08/04/2025 1 [place] Favio Oleary [id number] Favio Oleary 12/22/2024 2 [employer] [place] (MEDICAID HMO) Favio Oleary [id number] Favio Oleary 02/25/2025 2 [employer] (MEDICARE SUPPLEMENT) Favio Oleary [id number] Favio Oleary 12/19/2024 [employer] (MEDICARE REPLACEMENT/AD VANTAGE - PPO) Favio Oleary [id number] Favio Oleary 12/19/2024 1 [employer] (PPO) Favio Oleary [id number] Favio Oleary Notes Date Note Type Note Provider Name and Address Organization Details Recorded Time 12/29/2022 text/html Patient is here in follow-up of prostate carcinoma treated with radiation therapy several years ago. PSA today is stable at 0.65. He continues to take tamsulosin but has no voiding complaints. Urine today is unremarkable. He has no erectile dysfunction. EMMA CARRILLO MD [address] [place] [address] [place], [address], [facility] 12/31/2022 20:45:08 07/23/2023 text/html Patient is here for scheduled 6-month follow-up regarding prostate carcinoma treated with radiation therapy several years ago. PSA today is stable at 0.86. He has no urination issues. He has no erectile issues. He remains active. EMMA CARRILLO MD [address] [place] [address] [place], [address], [facility] 07/30/2023 13:04:42 01/23/2024 text/html Patient is here for follow-up of prostate carcinoma treated with CyberKnife several years ago. His PSA remained stable at 1.1. He does take tamsulosin for mild obstructive symptoms. He requests a refill. EMMA CARRILLO MD [address] [place] [address] [place], [address], [facility] 01/24/2024 22:13:57 07/23/2024 text/html Patient is here now several years following CyberKnife therapy for prostate cancer. His PSA today is stable at 1.3. He continues to take tamsulosin for mild obstructive symptoms. He recently had a CT scan of the chest for shortness of breath and COPD. They mentioned something with his kidney what sounds to be a cyst within a partially visualized kidney. I suggest we at least obtain a renal ultrasound for further evaluation. EMMA CARRILLO MD [address] [place] [address] [place], [address], [facility] 07/24/2024 21:33:12 02/25/2025 text/html Patient is here follow-up prostate carcinoma treated with CyberKnife several years ago. Today had a very low increase in PSA level. PSA in June of last year was 1.3 and today 1.5. He has had no change of urination symptoms. He continues to take tamsulosin. He apparently recently had a renal panel and his GFR was over 60. He also in November had a renal ultrasound which showed 3 cm simple cyst in the right kidney. I suggest we continue to follow him. EMMA CARRILLO MD [facility] [place], [address], [facility] 02/25/2025 13:27:12
--- OUTSIDE RECORDS SUMMARY | 2025-08-24 11:29 | XMS_ITS ---
Author Organization [facility] Address [address] [place] [address] Care Team Providers Care Support Services Tech Name Role Phone Kumar Toledo MD Primary Care Provider + [phone] Active Problems Problem Noted Date Diagnosed Date Multiple lung nodules on CT -stable since 2018. 07/21/2025 Anginal equivalent 06/16/2024 Shortness of breath 12/28/2023 [...]
--- OUTSIDE RECORDS SUMMARY | 2025-08-24 11:29 | XMS_ITS | Clinical Summary ---
Author Organization Healthcare Address [address] [place] [address] Care Team Providers Care Adjunct Instructor Name Role Phone Balaji Perales MD Primary Care Provider [phone] Allergies No known active allergies Medications No [...] Date Last Done Comments [facility]-Depression Screening 1951 [facility]-/Child/Adol SDOH Screenings 1950 [facility]- SDOH Screenings 1969 [facility]-Adult SDOH Screenings 1969 CT Colonography 1996 Colonoscopy 1996 FIT-DNA 1996 FIT 1996 FOBT 1996 Sigmoidoscopy 1996 [facility]-Colorectal Cancer Screening 1996 [facility]-Pneumococcal Vaccine: 50 + Years (1 of 1 - PCV) 2001 [facility]-Zoster Vaccines (1 of 2) 2001 [facility]-DTaP,Tdap,and Td Vaccine s (1 - Tdap) 10/14/2019 10/13/2019 [id number] Vaccine (3 - season) 2025 03/02/2021, 02/02/2021 [facility]-Influenza Vaccine (#1) 2025 [facility]-RSV [...] <6.0% Children and Adolescents <7.5% . Source: [place] [employer]. Standards of medical care in diabetes, 2017. Diabetes Care.2017:40 (suppl 1):S1-S135. . HbA1c assay performed by an ion-exchange chromatography method that is certified traceable to the DCCT. 10/27/2020 7:15 AM EST 10/27/2020 7:21 AM EST Nickvasquez Becker Michael MBBS LAB BLOOD ORDERABLES Tania l Result SUNQUEST from Last 3 Months or Most Recently Relevant to Health Maintenance Insurance MEDICARE [employer] COMMERCIAL Care Teams Adjunct Instructor Relationship Specialty Start Date End Date Balaji Perales MD [address] [place], [place] [address] [address] PCP - General 04/08/21
--- OUTSIDE RECORDS SUMMARY | 2025-08-24 11:29 | XMS_ITS | Encounter Summary ---
Author Organization [facility] Address [address] [place] [address] Care Team Providers Care Hadoop Analyst Name Role Phone Kumar Toledo MD Primary Care Provider + [phone] Encounter Details Date Type Department Care Team (Latest Contact Info) Description 07/21/2025 Travel Social History Tobacco Use Types Packs/Day [...] Description 10/30/2025 10:20 AM EST Office Visit [facility] [address] [facility] [address] [place] [phone] Joann Hubbard, DYNO TECHNICIAN [address] [facility] [address] [place] [address] Scheduled Procedures Name Priority Associated Diagnoses Date/Ti me CORONARY ANGIOGRAPHY Unstable angina documented as of this encounter Visit Diagnoses Not on filedocumented in this encounter Care Teams Hadoop Analyst Relationship Specialty Start Date End Date Kumar Toledo MD [address] [facility] [address] [place] [address] PCP - General Family Medicine 07/06/22 documented as of this encounter
--- OUTSIDE RECORDS SUMMARY | 2025-08-24 11:29 | XMS_ITS | Encounter Summary ---
[facility] [address] [place] [address] Care Team Providers Care Bulk Station Agent Name Role Phone Kumar Toledo MD Primary Care Provider + [phone] Encounter Details Date Type Department Care Team (Late st Contact Info) Description 07/21/2025 Patient Outreach [facility] [address] [facility] [address] [place] [phone] Kiarra Nava RN Social History Tobacco Use Types Packs/Day Years [...] Description 10/30/2025 10:20 AM EST Office Visit [facility] [address] [place] [phone] Joann Hubbard, IKE [address] [facility] [address] [place] [address] Scheduled Procedures Name Priority Associated Diagnoses Date/Ti me CORONARY ANGIOGRAPHY Unstable angina documented as of this encounter Visit Diagnoses Not on filedocumented in this encounter Care Teams Bulk Station Agent Relationship Specialty Start Date End Date Kumar Toledo MD [address] [facility] [address] [place] [address] PCP - General Family Medicine 07/06/22 documented as of this encounter
--- OUTSIDE RECORDS SUMMARY | 2025-08-24 11:29 | XMS_ITS | Patient Health Record ---
[facility] [place] Address [address] [facility] [address] [place] [id number] Care Team Providers Care Solid Plasterer Name Role Phone ParisCbKumar Primary Care Provider Allergies No Known Allergies Results Component Value Reference Range Notes P-Basic Metabolic Panel (BMP ) Reviewed date:02/11/2025 12:32:53 PM Interpretation:gluc 114 Performing Lab: Notes/Report: Test performed by [facility] [address] [place], [place] [address]Grid[address] [facility] , [address], [place] [address] Giovani Sanz MD, Diamond Powder Mixer CLIA: [id number] Sodium 142 135-145 mmol/L Potassium 4.7 3.5-5.3 [...] blood glucose 115 74 - 106 mg/dL P-Vitamin D 25-Hydroxy Reviewed date:05/14/2025 09:04:29 AM Interpretation:34 Performing Lab: Notes/Report: Test performed by [facility] [address] [place], [place] [address]Grid20/[address], [place] [address] Giovani Sanz MD, Diamond Powder Mixer CLIA: [id number] Vitamin D 25-Hydroxy 34.0 30.0-100.0 ng/mL Interpretation of Vitamin D 25 OH: < 20 ng/mL - Deficiency 20 - 29 ng/mL - Insufficiency 30 - 100 ng/mL - Sufficiency > 100 ng/mL - Super-therapeutic- toxicity may occur above this level. Clinical correlation required. P-Phosphorus Reviewed date:05/14/2025 09:04:29 AM Interpretation:Normal Performing Lab: Notes/Report: Test performed by [facility] [address] [place] [address] , [facility] [place] [address] Giovani Sanz MD, Diamond Powder Mixer CLIA: [id number] Phosphorus 2.8 2.5-4.5 mg/dL P-Magnesium Reviewed date:05/14/2025 09:04:29 AM Interpretation:Normal Performing Lab: Notes/Report: Test performed by [facility] [address] [place] [address] , [place] [address] Giovani Sanz MD, Diamond Powder Mixer CLIA: [id number] Magnesium 2.0 1.6-2.4 mg/dL P-Comprehensive Metabolic Pa jhon (CMP) Reviewed date:05/14/2025 09:04:29 AM Interpretation:cl 109, gluc 124 Performing Lab: Notes/Report: Test performed by [facility] [address] [place] [address] [place] [address] Giovani Sanz MD, Diamond Powder Mixer CLIA: [id number] Sodium 142 135-145 mmol/L Potassium 4.3 3.5-5.3 [...] 0.4 <0.2-1.2 mg/dL A/G Ratio 2.0 1.1-2.5 P-Vitamin B12 Reviewed date:05/14/2025 09:04:29 AM Interpretation:Normal Performing Lab: Notes/Report: Test performed by [facility] [address] [place] [address] , [place] [address] Giovani Sanz MD, Diamond Pow[employer] Mixer CLIA: [id number] Vitamin B12 988 851-2930 pg/mL CBC Venipuncture (in house) Reviewed date:05/14/2025 [...] - 38 platlet 272 100 - 400 Glucose (In-House) Reviewed date:09/01/2024 10:26:47 AM Interpretation:145 Performing Lab: Notes/Report: 145 blood glucose 145 74 - 106 mg/dL Glycohemoglobin A1c (in hous e) Reviewed date:09/01/2024 10:26:47 AM Interpretation:6 Performing Lab: Notes/Report: 6 glycohemoglobin 6.0% 5 - 6.5 % P-Comprehensive Metabolic Pa jhon (CMP) Reviewed date:09/01/2024 10:26:47 AM Interpretation:gluc 110 Performing Lab: Notes/Report: Test performed by [facility] [address] [place] [address] , [address], [place] [address] Giovani Sanz MD, Diamond Powder Mixer CLIA: [id number] Sodium 140 135-145 mmol/L Potassium 4.8 3.5-5.3 [...] 37 Performing Lab: Notes/Report: Test performed by [facility], [place] [id number] [facility] , [address], [place] [address] Giovani Sanz MD, Diamond Powder Mixer CLIA: [id number] Cholesterol 139 <200 mg/dL Triglycerides 107 <150 [...] Interpretation:Normal Performing Lab: Notes/Report: Test performed by [facility] [address] [place] [address] , [address], [place] [address] Giovani Sanz MD, Diamond Powder Mixer CLIA: [id number] TSH reflex to FT4 2.22 0.43-5.25 mU/L P-Microalbumin/Creatinine, R andom Urine Sample Reviewed date:09/01/2024 10:26:47 AM Interpretation:normal Performing Lab: Notes/Report: Test performed by [facility] [address] [place] [address] , [address], [place] [address] Giovani Sanz MD, Diamond Powder Mixer CLIA: [id number] Albumin/Creatinine Ratio, Urine See Comment 0-30 ug/mg Unable to calculate Urine Albumin/Creatinine Ratio when urine creatinine or urine albumin fall outside established reportable range. Microalbumin, Urine, Random <0.3 Creatinine, Urine 61.9 X ray : heel,right Reviewed date:09/08/2024 10:11:24 AM Interpretation:degenerative changes Performing Lab: Notes/Report: degenerative changes Glucose (In-House) Reviewed date:06/09/2025 09:44:23 AM Interpretation:125 Performing Lab: Notes/Report: 125 blood glucose 125 74 - 106 mg/dL Glycohemoglobin A1c (in hous e) Reviewed date:06/09/2025 09:44:23 AM Interpretation:6.1 Performing Lab: Notes/Report: 6.1 glycohemoglobin 6.1% 5 - 6.5 % P-Lipid Panel Reviewed date:06/09/2025 09:44:23 AM Interpretation:trigs 162, hdl 37 Performing Lab: Notes/Report: Test performed by [facility] [address] [place] [address] , [address], [place] [address] Giovani Sanz MD, Diamond Powder Mixer CLIA: [id number] Cholesterol 150 <200 mg/dL Triglycerides 162 <150 [...] Interpretation:Normal Performing Lab: Notes/Report: Test performed by [facility] [address] [place] [address] , [address], [place] [address] Giovani Sanz MD, Diamond Powder Mixer CLIA: [id number] TSH reflex to FT4 2.05 0.43-5.25 mU/L P-Microalbumin/Creatinine, R andom Urine Sample Reviewed date:06/09/2025 09:44:23 AM Interpretation:Normal Performing Lab: Notes/Report: Test performed by [facility] [address] [place] [address] , [address], [place] [address] Giovani Sanz MD, Diamond Powder Mixer CLIA: [id number] Albumin/Creatinine Ratio, Urine 13 0-30 ug/mg Microalbumin, Urine, Random 1.3 Creatinine, Urine 104.0 Reason For Referral Diagnosis 1 Pain of right heel ( M79.671) Referral Organization [facility] Referring Provider First Name Kumar Referring Provider Last Name Paris Referring Provider Speciality Family Pra ctice Referred Provider Marylin Zhao Referred Provider Specialty Podiatry General Notes Margaux Taylor 024 11:02:14 AM > faxed referral to [facility] Podiatry Referral Priority Routine Medications [...] Vaccine Route Administration Date Status Comme nts Prevnar (PCV20) IM Intramuscular 09/01/2022 Administered Fluzone High Dose (65yr and older) IM Intramuscular 09/01/2022 Administered Fluzone High Dose (65yr and older) IM Intramuscular 08/29/2024 Administered COVID 19 Pfizer Unknown 02/02/2021 Administered COVID 19 Pfizer Unknown 03/02/2021 Administered Problems Problem Type SNOMED Code ICD Code Onset Dates Problem Status W/U Status Risk Notes Problem Hypertension (97469689) HTN (hypertension) (I10) Active confirmed Problem BMI 30+ - obesity (401809676) BMI 32.0-32.9,adult (Z68.32) Active confirmed Problem Memory loss (30984993) Memory loss (R41.3) Active confirmed Problem Impaired fasting glucose (325042739) Impaired fasting glucose (R73.01) Active confirmed Problem Mixed hyperlipidemia (131148193) Mixed hyperlipidemia (E78.2) Active confirmed Problem Renal insufficiency (993164037) Renal insufficiency (N28.9) Active confirmed Problem COPD - Chronic obstructive pulmonary disease (18741182) Chronic obstructive pulmonary disease, unspecified COPD type (J44.9) Active confirmed Problem Atherosclerotic heart disease of [place] coronary artery without angina pectoris (101016540989803) Coronary artery disease involving [place] coronary artery of [place] heart without angina pectoris (I25.10) Active confirmed Problem Body mass index 30.00 to 34.99 (785101299051848) BMI 31.0-31.9,adult (Z68.31) Active confirmed Problem Obesity (486754008) Non morbid obesity (E66.9) Active confirmed Vital Signs Heart Rate 84 /min 06/05/2025 Blood pressure diastolic 74 mm Hg 06/05/2025 Height 70 in 06/05/2025 Blood pressure systolic 120 mm Hg 06/05/2025 Weight 222 lbs 06/05/2025 BMI 31.85 kg/m2 06/05/2025 Encounters Encounter Location Date Provider Diagnosis Suz[place] [address] [facility] [address] [place] [id number] 08/29/2024 Kumar Latham HTN (hypertension) I 10 ; Mixed hyperlipidemia E78.2 ; Impaired fasting glucose R73.01 ; Chronic constipation K59.09 ; Pain of right heel M79.671 and Encounter for immunization Z23 [facility] [address] [facility] [address] [place] [id number] 09/16/2024 Kumar Latham Pain of right heel M79.671 and Excessive wax in left ear H61.22 [facility] [address] [place] [id number] 10/15/2024 Kumar Latham HTN (hypertension) I 10 and Acute bilateral low back pain without sciatica M54.50 [facility] [address] [place], [place] [id number] 02/10/2025 Kumar Latham HTN (hypertension) I 10 ; Impaired fasting glucose R73.01 and Chronic constipation K59.09 [facility] [address] [place] [id number] 03/16/2025 Kumar Latham SOB (shortness of br eath) R06.02 ; Chronic obstructive pulmonary disease, unspecified COPD type J44.9 and BMI 31.0-31.9,adult Z68.31 [facility] [address] [place], [place] [id number] 05/13/2025 Kumar Latham Fatigue, unspecified type R53.83 ; HTN (hypertension) I10 ; Renal insufficiency N28.9 ; Excessive wax in right ear H61.21 ; Mixed hyperlipidemia E78.2 ; Impaired fasting glucose R73.01 and BMI 32.0-32.9,adult Z68.32 [facility] [address] [place], [place] [id number] 06/05/2025 Kumar Latham Impaired fasting glu cose R73.01 ; Mixed hyperlipidemia E78.2 ; Coronary artery disease involving [place] coronary artery of [place] heart without angina pectoris I25.10 and HTN (hypertension) I10 [facility] [address] [place], [place] [id number] 09/01/2024 Kumar Latham [facility] [address] [place] [id number] 10/15/2024 Kumar Latham [facility] [address] [place], [place] [id number] 12/26/2024 Kumar Latham Chronic constipation K59.09 [facility] [address] [place], [place] [id number] 02/11/2025 Kumar Latham [facility] [address] [place] [id number] 05/14/2025 Kumar Latham [facility] [address] [place], [place] [id number] 05/19/2025 Kumar Latham [facility] [address] [place] [id number] 06/05/2025 Kumar Latham Chronic constipation K59.09 [facility] [address] [place], [place] [id number] 06/09/2025 Kumar Latham [facility] [address] [place], [place] [id number] 06/17/2025 Kumar Latham Impaired fasting glu cose R73.01 [facility] [address] [place], [place] [id number] 06/23/2025 Kumar Latham Assessments Encounter Date Diagnosis (ICD Code) Assessment Notes Treatment Notes Treatment Clinical Notes Section Notes 08/29/2024 HTN (hypertension) (ICD-10 - I10) 09/16/2024 [...] - R73.01) 06/05/2025 Coronary artery disease involving [place] coronary artery of [place] heart without angina pectoris (ICD-10 - I25.10) [...] Panel 04/14/2024 P-TSH reflex to FT4 04/14/2024 Insurance Providers Payer Name Payer Address Payer Phone Subscriber Number Group Number Insured Name Patient Relationship to Insured Coverage Start Date Coverage End Date MEDICARE PART B [address] [address] [place] [id number] [phone] [id number] SHAWN HARTMAN Self - patient is the insured [employer] [address] [address] [place] [address] [id number] SHAWN HARTMAN Self - patient is the insured Medical (General) History Medical History History ICD Code Coronary Artery Disease, s/p LT Heart Ca th, Stents x 3, 2007 Hypertension Hyperlipidemia Impaired Fasting Glucose Renal Insufficiency Prostate Cancer Diverticulosis COPD, Abnormal PFT's 2022 Colon polyps sleep apnea Surgical History Surgery Date(Month/Year) Hernia Repair Stent Placement x3 2007 Colon Repair Prostate colonoscopy - 4 Hospitalization History Reason Date(Month/Year) Dehydration, Dizziness- [facility] 04/24/2016 Stent Placement- [facility]
--- OUTSIDE RECORDS SUMMARY | 2025-08-24 11:30 | XMS_ITS | Clinical Summary ---
Author Organization [facility] Address [address] [place] [address] Care Team Providers Care Leisure Studies Professor Name Role Phone Kumar Toledo MD Primary Care Provider + [phone] Allergies No known active allergies Medications Multiple Vitamin (MULTI VITAMIN PO) Take 1 tablet by mouth Daily. Active ASPIRIN 81 PO Take 1 tablet by mouth Daily. Active NON FORMULARY CPAP Machine at night Active TRUEplus Lancets 33G misc 2 Active True Metrix Blood Glucose Test test strip 2 Active Blood Glucose Monitoring Suppl (True Metrix Meter) w/Device kit 2 Active Blood Glucose Calibration (True Metrix Level 1) Low solution 2 Active metFORMIN ER (GLUCOPHAGE-XR) 500 MG 24 hr tablet Take 1 tablet by mouth Daily With Breakfast. 3 Active nitroglycerin (NITROSTAT) 0.4 MG SL tablet DISSOLVE 1 TABLET UNDER TONGUE EVERY 5 MINUTES NEEDED FOR CHEST PAIN. TAKE NO MORE THAN 3 DOSES IN 15 MINUTES. 25 tablet 3 3 Active tamsulosin (FLOMAX) 0.4 MG capsule 24 hr capsule TAKE 1 CAPSULE EVERY NIGHT (PLEASE REQUEST FUTURE REFILLS FROM PCP) 30 capsule 3 4 Active Additional Information Patient taking differently: 1 capsule Oral Nightly, Reported on 07/21/2025 lactulose (CHRONULAC) 10 GM/15ML solution Take 30 mL by mouth Every Other Day. 4 Active amLODIPine (NORVASC) 5 MG tablet TAKE 1 TABLET EVERY DAY 90 tablet 3 5 Active carvedilol (COREG) 25 MG tablet TAKE 1 TABLET TWICE DAILY WITH MEALS 180 tablet 3 5 Active clopidogrel (PLAVIX) 75 MG tablet TAKE 1 TABLET EVERY DAY 90 tablet 3 5 Active fenofibrate (TRICOR) 145 MG tablet TAKE 1 TABLET BY MOUTH ONCE DAILY 30 tablet 6 5 Active atorvastatin (LIPITOR) 80 MG tablet TAKE 1 TABLET EVERY NIGHT 90 tablet 3 5 Active torsemide (DEMADEX) 5 MG tablet TAKE 1 TABLET EVERY DAY NEEDED (SWELLING AND/OR SHORTNESS OF BREATH) 90 tablet 3 5 Active losartan (COZAAR) 50 MG tablet Take 1 tablet by mouth Daily. 90 tablet 2 5 Active albuterol sulfate HFA 108 (90 Base) MCG/ACT inhalerIndicatio ns:Mild intermittent asthma without complication Inhale 2 puffs Every 4 (Four) Hours As Needed for Wheezing. 51 g 11 5 Active Active Problems Problem Noted Date Diagnosed Date Multiple lung nodules on CT -stable since 2018. 07/21/2025 Anginal equivalent 06/16/2024 Shortness of breath 12/28/2023 Essential hypertension 04/05/2018 Unstable angina 11/14/2017 Obstructive sleep apnea syndrome 02/22/2017 Prostate cancer 09/21/2016 Cancer Staging:Clinical stage from 09/21/2016:Stage I(T1c, N0, M0, PSA: Less than 10, Felda <= 6) - Signed by Deion Mendes [...] Encounters Date Type Department Care Team Description 07/21/2025 1:00 PM EDT Office Visit [facility] PULMONARY & CRITICAL CARE MEDICINE [address] [place] [address] Yamil Fairbanks MD Chronic obstructive pulmonary disease, unspecified COPD type (Primary Dx); Mild intermittent asthma without complication; Multiple lung nodules on CT 07/21/2025 Results Follow-Up [facility] PULMONARY & CRITICAL CARE MEDICINE [address] [place] [address] Yamil Fairbanks MD 07/21/2025 Patient Outreach [facility] HEMATOLOGY & ONCOLOGY [address] [facility] [address] [place] [address] Kiarra Nava RN 07/21/2025 Travel 06/24/2025 1:20 PM EDT Office Visit [facility] CARDIOLOGY [address] [facility] [address] [place] [address] Joann Hubbard, CHIROPRACTIC PRACTICE MANAGER Ischemic heart disease (Primary Dx); Essential hypertension; Dyslipidemia; Shortness of breath 06/24/2025 Travel 06/15/2025 Refill [facility] CARDIOLOGY [address] [facility] [address] [place] [address] Joann Hubbard, CHIROPRACTIC PRACTICE MANAGER Med Refill 06/01/2025 Refill [facility] CARDIOLOGY [address] [facility] [address] [place] [address] Joann Hubbard, CHIROPRACTIC PRACTICE MANAGER Med Refill 05/28/2025 Refill [facility] CARDIOLOGY [address] [facility] [address] [place] [address] Joann Hubbard APRN Med Refill 05/28/2025 Refill [facility] CARDIOLOGY [address] [facility] [address] [place] [address] Naif Calzada MD Med Refill from Last 3 Months Immunizations Immunization Administration Dates Next Due FluMist 2-49yrs 09/21/2015 Fluzone High-Dose 65+YRS 08/31/2017 Fluzone High-Dose 65+yrs 08/29/2024,09/01/2022 Pneumococcal Conjugate 20-Valent (PCV20) 022 Td, Not Adsorbed 10/13/2019 Family History Medical History Relation Name Comments [...] Mass Index 32.28 07/21/2025 12:12 PM EDT Plan of Treatment Upcoming Encounters Date Type Department Care Team (Late st Contact Info) Description 10/30/2025 10:20 AM EST Office Visit [facility] CARDIOLOGY [address] [facility] [address] [place] [id number] Joann Hubbard, CHIROPRACTIC PRACTICE MANAGER [address] [facility] [address] [place] [address] Scheduled Procedures Name Priority Associated Diagnoses Date/Ti me CORONARY ANGIOGRAPHY Unstable angina Health Maintenance Due Date Last Done Comments COLOGUARD 1996 COLON CANCER SCREENING 5 YEA R SIGMOIDOSCOPY [address] COLONOGRAPHY 1996 FECAL OCCULT BLOOD TEST 1996 FIT Testing (1 year) 1996 ZOSTER VACCINE (1 of 2) 2001 ANNUAL WELLNESS VISIT 02/22/2017 HEPATITIS C SCREENING 02/22/2017 TDAP/TD VACCINES (1 - Tdap) 10/14/2019 10/13/2019 INFLUENZA VACCINE 06/26/2025 08/29/2024, , 07/31/2019, Additional history exists COVID-19 Vaccine (3 - 2024-2 6 season) 2025 03/02/2021, 02/02/2021 COLONOSCOPY 08/22/2031 08/22/2021, 04/2018, 10/12/2016 COLORECTAL CANCER SCREENING 08/22/2031 AAA SCREEN ONCE Completed 10/06/2019, 01/07/2019 HEMOGLOBIN A1C Discontinued 03/07/2021, 12/2019, 12/23/2019, Additional history exists Pneumococcal Vaccine 50+ Completed 09/01/2022 Medical Devices Implanted Type Area Back Hand Device Identifier Shelf Expiration Date Model / Serial / Lot Seed Prost Interstitial Loose [id number] - [id number] Implanted:Qty: 122 on 10/30/2016 by Olu Mendes MD at [facility] Implant N/A: Prostate THERAGENICS MARITA 11/17/2016 [id number] / / [id number] Description:THERAGENICS IODI NE 125 MODEL [id number] with 122 seeds Stent Xience Alpine Tyron Rx [id number] - [id number] Implanted:Qty: 1 on 11/14/2017 by Ayan Haro MD at [facility] [employer] 07/24/2020 [id number] / / [id number] Stent Xience Alpine Tyron Rx 2.49z27si - [id number] Implanted:Qty: 1 on 11/14/2017 by Ayan Haro MD at [facility] [employer] 07/30/2020 [id number] / / [id number] Stent Xience Alpine Tyron Rx [id number] - [id number] Implanted:Qty: 1 on 11/14/2017 by Ayan Haro MD at [facility] [employer] 05/01/2020 [id number] / / [id number] Procedures Procedure Name Priority Date/Time Associated Diagnosis Comments PULMONARY FUNCTION TEST Routine 07/21/2025 12:27 PM EDT Chronic obstructive pulmonary disease, unspecified COPD type SCANNED - IMAGING 07/07/2025 SCANNED - LABS 07/06/2025 CT OUTSIDE CHEST Routine 07/06/2025 12:0 0 AM EDT SCANNED - LABS 06/05/2025 CT ABDOMEN PELVIS WO CONTRAST STAT 10/06/2019 12:34 PM EST from Last 3 Months or Most Recently Relevant to Health Maintenance Results * Spirometry with Diffusion Capacity & Lung Volumes (07/21/2025 12:27 PM EDT) Yamil Fairbanks MD PFT ORDERABLES Final Result * IMAGING SCANNED (07/07/2025) Anatomical Region Laterality Modality Radiographic Bonnie ging Joann Hubbard APRN IMG DIAGNOSTIC IMAGING ORDE RABLES Final Result * CT Outside Chest (07/06/2025 12:00 AM EDT) Narrative SYSTEMGENERATED, DOCUMENTATION - 07/20/2025 12:01 PM EDT This procedure was auto-finalized with no dictation required. Radiant Outside Films IMG CT ORDERABLES Final Re sult * LABS SCANNED (07/06/2025) Only the most recent of2 resultswithin the time period is included. Joann Hubbard APRN LAB BLOOD ORDERABLES Final [...] by Dr. Elaine Leonardo MD. Jerica DOE [facility] CT ORDERABLES Final Result from Last 3 Months or Most Recently Relevant to Health Maintenance Insurance MEDICARE A & [employer] Advance Directives * Full Code (Latest Code Status on File) Date Activated Date Inactivated Comments 11/14/2017 6:27 PM 11/15/2017 1:46 PM * Full Code Date Activated Date Inactivated Comments 11/14/2017 6:09 PM 11/14/2017 6:27 PM Care Teams Leisure Studies Professor Relationship Specialty Start Date End Date Kumar Toledo MD [address] [facility] [address] [place] [id number] PCP - General Family Medicine 07/06/22
[2025-08-24 12:42] LABS: D-Dimer 0.83 ug/mL (0.0-0.5)
[2025-08-24 12:46] LABS: NT Pro Brain Natriuretic Pep. 21.7 pg/mL (0-125)
== END 2025-08-24 23:59 | disposition home or self-care (01) ==
LOC: LAB 11:26
PROVIDERS: PCP Family Medicine; Visit Provider Nurse Practitioner
DX: R06.02 Shortness of breath (principal)
CPT/HCPCS: 36415; 83880; 85378